=== PATIENT | female | born 1960 | race Caucasian/White ===

== ENCOUNTER → 2016-07-13 | Outpatient (CLI) | payer BC ==
--- NOTE | 2016-07-13 14:29 | MR ---
MR lumbar spine wo con PAIN IN LOWER BACK RADIATING TO HIPS Multiplanar, multiecho imaging of the lumbar spine was obtained without contrast on a 3 Sharyn magnet. REFERENCE:None. FINDINGS: There is a 1.5 x 3 cm solid appearing mass seen arising from the upper pole of the left ki dney. Paraspinal soft tissues are otherwise unremarkable. Vertebral body height and alignment are maintained. There is no evidence of spondylolysis or spondylo listhesis. There is evidence of a hemangioma in the body of S1. Cord signal is normal. The conus ends normally at the level of the mid body of L1. T11-12, there is disc space loss. There is a diffuse disc displacement. There is hypertrophic spondyl osis anteriorly. At T12-L1, there is a tiny annular rent without protrusion. There is a tiny left paracentral disc dis placement, mildly deforming the thecal sac without cord contact. The intervertebral foramina are wide ly maintained. The facets are unremarkable. At L1-2, there is minimal capsulitis in the right facet. At L2-3, there is mild hypertrophic change and capsulitis within the facets. At L3-4, there is disc space loss and disc desiccation. The intervertebral foramina are well maintain ed. There is no significant compressive discopathy. There are hypertrophic changes in the facets. At L4-5, there is mild disc space loss and disc desiccation. Intervertebral foramina are well maintai nicholas. There is hypertrophic change and capsulitis within the facets. There is no significant compressi ve discopathy. At L5-S1, no definite abnormality is seen. IMPRESSION: 1. MILD, DIFFUSE FACET ARTHROPATHY. 2. NO SIGNIFICANT COMPRESSIVE DISCOPATHY OR NEURAL COMPRESSION. 3. 3 CM MASS ARISING FROM THE UPPER POLE OF THE LEFT KIDNEY. THIS SHOULD BE FURTHER ELUCIDATED WITH C T OR MR.
== END | disposition home or self-care (01) ==
LOC: RADMRIMAIN 13:38
PROVIDERS: ATTEND Internal Medicine Hematology & Oncology
DX: M46.86 Other specified inflammatory spondylopathies, lumbar region (principal); M54.5 Low back pain
CPT/HCPCS: 72148

== ENCOUNTER → 2016-08-03 | Outpatient (CLI) | payer BC ==
--- NOTE | 2016-08-03 10:13 | MR ---
EXAMINATION TYPE: MR kidney wo/w con DATE OF EXAM: 08/03/2016 9:57 AM COMPARISON: MRI 05/21/2014, CT scan 11/22/2014 HISTORY: back pain CONTRAST: Standard multiplanar, multisequence MRI departmental protocol utilizing 18 mL intravenous MultiHance gadolinium contrast. FINDINGS: There again is enhancement within a 1.4 cm lesion involving the liver most likely related to hemangio ma. Bilateral adrenal masses are again seen with the largest on the left measuring 3.2 cm. Adrenal adenom a felt most likely. There is cortical loss involving both kidneys. No hydronephrosis. Deformity involving the left kidney appears be related to cortical loss and chronic scarring with no definite suspicious neoplasm. Appearance is stable dating back to 2013. Aorta of normal caliber. Pancreas has a normal appearance. Gallbladder is not identified. Findings pedro ggest previous cholecystectomy. Low signal seen within the spleen current and previous MRI appears to correspond to calcification on CT scan. Cardiomegaly. IMPRESSION: 1. Deformity involving the left kidney appears chronic dating back to 2013 appears to represent chron ic medical renal disease with marked cortical scarring and thinning without evidence of suspicious ma ss. 2. Stable hepatic lesion most likely related to hemangioma 3. Stable bilateral adrenal masses most likely related to adenoma
== END | disposition home or self-care (01) ==
LOC: RADMRIMAIN 09:05
PROVIDERS: ATTEND Internal Medicine Hematology & Oncology
DX: Q63.9 Congenital malformation of kidney, unspecified (principal); N18.9 Chronic kidney disease, unspecified; E27.8 Other specified disorders of adrenal gland; K76.89 Other specified diseases of liver
CPT/HCPCS: 74183; A9577

== ENCOUNTER → 2017-01-24 | Outpatient (CLI) | payer BC ==
--- NOTE | 2017-01-28 10:47 | MM ---
Reason for exam: screening (asymptomatic). Last mammogram was performed 1 year and 6 months ago. History: Patient is postmenopausal. Family history of premenopausal breast cancer in aunt at age 48. Excisional biopsy of the right breast, 2004. Excisional biopsy of the right breast, 1997. Physical Findings: A clinical breast exam by your physician is recommended on an annual basis and results should be correlated with mammographic findings. MG Screening Mammo w CAD Bilateral CC and MLO view(s) were taken. Prior study comparison: July 18, 2015, bilateral MG screening mammo w CAD. April 24, 2013, [facility] DIGITAL LEFT BREAST MAMMOGRAM w/CAD. The breast tissue is heterogeneously dense. This may lower the sensitivity of mammography. No significant changes when compared with prior studies. ASSESSMENT: Benign, BI-RAD 2 RECOMMENDATION: Routine screening mammogram of both breasts in 1 year.
== END | disposition home or self-care (01) ==
LOC: RADMAMWWP 12:37
PROVIDERS: ATTEND Internal Medicine Hematology & Oncology
DX: Z12.31 Encounter for screening mammogram for malignant neoplasm of breast (principal)

== ENCOUNTER 2019-05-13 07:16 | Day surgery (SDC) | payer BC, MEDICAID ==
[2019-05-11 13:29] VITALS: BMI 29.1
[~2019-05-13 07:16] MED LIST: LACTATED RINGERS 1,000 ML IV SCH; LIDOCAINE 1% 20 ML VIAL (10MG/ML) FOR IV START INTRADERMA PRN
[2019-05-13 07:50] VITALS: TEMP 98.8
[2019-05-13] MEDS ORDERED: LIDOCAINE 1% INJ 10MG/ML (20 ML MDV) ONE (07:56)
[2019-05-13] MEDS ORDERED: PROPOFOL 10 MG/ML 20 ML VIAL IV ONE (07:56)
--- NOTE | 2019-05-13 08:07 | P.GSHP ---
History of Present Illness H&P Date: 05/13/19 Chief Complaint: Colon cancer screening 59-year-old female known to our service. History of previous colon polyps however they are most likely hyperplastic. No first-degree relatives with colon cancer. No bowel related complaints. Here today for colonoscopy. Last colono scopy 7 years ago. Past Medical History Additional Past Medical History / Comment(s): thrombocytosis,HX OF NUMEROUS UTI'S BUT NONE FOR YRS. History of Any Multi-Drug Resistant Organisms: None Reported Past Surgical History: Cholecystectomy, Hysterectomy Additional Past Surgical History / Comment(s): KIDNEY URETERS RE-ROUTING D/T FREQUENT UTIS YRS AGO. LUMPECTOMIES OF BREAST-BENIGN, PT NOT SURE WHICH BREAST,sinus surgery Past Anesthesia/Blood Transfusion Reactions: No Reported Reaction Additional Past Anesthesia/Blood Transfusion Reaction / Comment(s): NEVER RECIEVED BLOOD PRODUCT. Smoking Status: Current every day smoker - Past Family History Father Family Medical History: No Reported History Additional Family Medical History / Comment(s): FATHER IS LIVING AND IN HIS 70'S Mother Family Medical History: Cancer Additional Family Medical History / Comment(s): MOTHER IS LIVING AND IN HER 70'S. HX OF OVARIAN CA. Medications and Allergies Home Medications Medication Instructions Recorded Confirmed Type Levothyroxine Sodium [Synthroid] 50 mcg PO QAM 01/24/14 05/13/19 History clonazePAM [KlonoPIN] 0.5 mg PO TID 01/24/14 05/13/19 History Aspirin 81 mg PO DAILY 04/07/14 05/13/19 History Ascorbic Acid [Vitamin C] 1,000 mg PO DAILY 05/11/19 05/13/19 History Cyanocobalamin [Vitamin B-12] 500 mcg PO DAILY 05/11/19 05/13/19 History Montelukast [Singulair] 10 mg PO DAILY 05/11/19 05/13/19 History Vitmain D (Unknown Dose) 1 dose PO DAILY 05/11/19 History Allergies Allergy/AdvReac Type Severity Reaction Status Date / Time latex Allergy Severe Anaphylaxis Verified 05/11/19 13:19 Penicillins AdvReac Severe Rash/Hives Verified 05/11/19 13:19 Surgical - Exam Vital Signs Temp Pulse Resp BP Pulse Ox 98.8 F 73 18 111/65 93 L 05/13/19 07:45 05/13/19 07:45 05/13/19 07:45 05/13/19 07:45 05/13/19 07:45 Physical exam: General: Well-developed, well-nourished HEENT: Normocephalic, sclerae nonicteric Abdomen: Nontender, nondistended Extremities: No edema Neuro: Alert and oriented Assessment and Plan (1) Colon cancer screening Narrative/Plan: Will proceed with colonoscopy at this time Current Visit: Yes Status: Acute Code(s): Z12.11 - ENCOUNTER FOR SCREENING FOR MALIGNANT NEOPLASM OF COLON SNOMED Code(s): 274258730
--- NOTE | 2019-05-13 08:22 | P.PCN ---
Date of Procedure: 05/13/19 Procedure(s) Performed: PREOPERATIVE DIAGNOSIS: Colon cancer screening POSTOPERATIVE DIAGNOSIS: Rectal polyp 2 PROCEDURE: Colonoscopy with snare polypectomy ANESTHESIA: MAC SURGEON: Martín Coburn M.D. SPECIMENS: Rectal polyps ENDOSCOPIC PROCEDURE: The patient was placed on the endoscopy table in the left decubitus position. The Olympus colonoscope was inserted into the anus and passed under direct visualization to the base of the cecum. The appendiceal orifice was visualized. From that point the scope was slowly withdrawn inspecting all surfaces carefully. There were no neoplastic inflammatory or polypoid lesions throughout the cecum, ascending, transverse, descending, and sigmoid colon. In the rectum proximally the 2 small polyps removed using the snare with cautery technique. The remainder of the rectum was normal. There was no visible diverticulosis. Digital rectal examination was normal. The patient was taken to the recovery room in stable condition per anesthesia guidelines. RECOMMENDATIONS: Await biopsy results. Colonoscopy 5-10 years based on pathology findings.
[2019-05-13 08:48] VITALS: BP 125/73; PULSE 60; RESP 17
== END 2019-05-13 09:16 | disposition home or self-care (01) ==
LOC: ORWHC2ENDO 07:16
PROVIDERS: ATTEND Surgery
DX: Z12.11 Encounter for screening for malignant neoplasm of colon (principal); K62.1 Rectal polyp; E07.9 Disorder of thyroid, unspecified; J41.0 Simple chronic bronchitis; D47.3 Essential (hemorrhagic) thrombocythemia; F41.9 Anxiety disorder, unspecified; F17.210 Nicotine dependence, cigarettes, uncomplicated; Z88.0 Allergy status to penicillin; Z91.040 Latex allergy status; Z79.890 Hormone replacement therapy; Z79.899 Other long term (current) drug therapy; Z90.49 Acquired absence of other specified parts of digestive tract; Z90.710 Acquired absence of both cervix and uterus; Z86.010 Personal history of colon polyps; Z87.440 Personal history of urinary (tract) infections; Z98.890 Other specified postprocedural states; Z80.41 Family history of malignant neoplasm of ovary; Z79.82 Long term (current) use of aspirin
CPT/HCPCS: 88305; 45385; J2001; J2704

== ENCOUNTER → 2019-07-21 | Outpatient (CLI) | payer MEDICAID ==
--- NOTE | 2019-07-22 11:26 | MM ---
Reason for exam: screening (asymptomatic). Last mammogram was performed 2 years and 6 months ago. History: Patient is postmenopausal. Family history of premenopausal breast cancer in aunt at age 48. Excisional biopsy of the right breast, 2004. Excisional biopsy of the right breast, 1997. Physical Findings: A clinical breast exam by your physician is recommended on an annual basis and results should be correlated with mammographic findings. MG Screening Mammo w CAD Bilateral CC and MLO view(s) were taken. Prior study comparison: January 24, 2017, bilateral MG screening mammo w CAD. July 18, 2015, bilateral MG screening mammo w CAD. The breast tissue is heterogeneously dense. This may lower the sensitivity of mammography. No suspicious abnormality. No significant changes when compared with prior studies. ASSESSMENT: Negative, BI-RAD 1 RECOMMENDATION: Routine screening mammogram of both breasts in 1 year.
== END | disposition home or self-care (01) ==
LOC: RADMAMWWP 07:29
PROVIDERS: ATTEND Internal Medicine Hematology & Oncology
DX: Z12.31 Encounter for screening mammogram for malignant neoplasm of breast (principal)
CPT/HCPCS: 77067

== ENCOUNTER → 2019-12-25 | Outpatient (CLI) | payer MEDICAID | END | disposition home or self-care (01) | LOC: LABWHC1 06:57 | PROVIDERS: ATTEND Family Medicine | DX: Z20.828 Contact with and (suspected) exposure to other viral communicable diseases (principal) ==

== ENCOUNTER → 2020-04-28 | Outpatient (CLI) | payer MEDICAID ==
--- NOTE | 2020-04-28 10:45 | CT ---
EXAMINATION TYPE: CT chest w con DATE OF EXAM: 04/28/2020 COMPARISON: CT abdomen and pelvis 11/22/2014 HISTORY: 60-year-old female cough/wheezing/smoker. TECHNIQUE: Contiguous axial scanning of the chest after the administration of 100 mL of Isovue 300. Coronal/sagittal reconstructions performed. CT DLP: 371mGycm. Automatic exposure control utilized for a dose reduction. FINDINGS: Heart normal size without pericardial effusion. Mild ectasia ascending aorta 3.6 cm. Bovine configuration to the aortic arch. Calcified 8 mm nodule within the left lobe of the thyroid gland. Scattered nonenlarged mediastinal an d right hilar lymph nodes measuring up to 8 mm. No thoracic lymphadenopathy by CT size criteria. Mild diffuse bronchial wall thickening. Mild centrilobular emphysema. No consolidation or pleural eff usion. Visualized upper abdomen shows multiple cortical defects within the kidneys and asymmetric atrophy of the left kidney. Partially visualized 6 mm nonobstructive left lower pole renal calculus. Heterogeneous arterial enhancing 1.3 cm lesion right liver lobe, axial image 66 likely represents a h emangioma, stable back to 2015. There is focal arterial enhancement peripheral left liver lobe measur ing 1.0 cm suggesting a flash filling hemangioma or vascular shunting, also stable. Nodular thickening of the bilateral adrenal glands measuring up to 2.0 x 1.4 cm on the right and 3.0 cm on the left, unchanged from 2015 suggesting underlying adrenal adenomas. Cholecystectomy clips. Bones: No osseous destructive process. IMPRESSION: 1. COPD with mild emphysema. No acute pulmonary process. 2. Stable appearance to the visualized upper abdomen as compared to 2015 with multiple renal cortical defects suggesting prior infectious or vascular insults on both sides, bilateral adrenal adenomas me asuring up to 3.0 cm, and a couple small benign hypervascular liver lesions, likely hemangiomas.
== END | disposition home or self-care (01) ==
LOC: RADCTMAIN 09:25
PROVIDERS: ATTEND Family Medicine
DX: J43.9 Emphysema, unspecified (principal); R06.2 Wheezing; Z72.0 Tobacco use
CPT/HCPCS: 71260; Q9967

== ENCOUNTER → 2020-05-09 | Outpatient (CLI) | payer MEDICAID ==
--- NOTE | 2020-05-09 07:58 | MR ---
EXAMINATION TYPE: MR iac wo/w con DATE OF EXAM: 05/09/2020 COMPARISON: None HISTORY: Disequilibrium, dizziness CONTRAST: Performed utilizing 8.5 mL intravenous Gadavist gadolinium contrast. TECHNIQUE: Multiplanar, multiecho imaging on a 3.0 Sharyn magnet is performed through the brain. Atte ntion is paid to the internal auditory canals with thin section imaging. Postcontrast imaging is per formed through the internal auditory canals. FINDINGS:Craniovertebral junction is normal. The pituitary is normal. Optic chiasm as visualized is normal Diffusion-weighted imaging is performed. No suspicious hyperintensity is present to suggest an acute intracranial infarct or acute ischemic area. Signal within the brain has a couple of areas of hyperintensity which are non-specific but could be r elated to microvascular ischemic changes. This is not out of proportion for the patient's age. Thin section imaging is performed through the internal auditory canals and cerebellar pontine angles. No cerebellar pontine angle masses are evident. The internal auditory canals appear normal without expansion or erosion. Signal within the cerebellum is unremarkable. Mastoid air cells are clear. Mid dle ears are unremarkable Postcontrast imaging was performed. No suspicious enhancement is evident within the internal audito ry canals or the included portions of the brain. IMPRESSIONS: 1. Normal internal auditory canals. 2. Couple of supratentorial nonspecific subcortical white matter changes not out of proportion to pat ient's age. This could be associated with etiologies such as microvascular ischemic change or migrain e headaches.
== END | disposition home or self-care (01) ==
LOC: RADMRIMAIN 06:05
PROVIDERS: ATTEND Otolaryngology
DX: R90.82 White matter disease, unspecified (principal); Z88.0 Allergy status to penicillin; Z91.040 Latex allergy status
CPT/HCPCS: 70553; A9585

== ENCOUNTER 2020-05-20 23:00 | Emergency (ER) | payer MEDICAID ==
[2020-05-20 23:24] LABS: Glucose,Whole Blood 105 mg/dL (75-99)
--- NOTE | 2020-05-20 23:43 | ED ---
Neuro HPI - General Chief Complaint: Neuro Symptoms/Deficit Stated Complaint: lt side tingling Time Seen by Provider: 05/20/20 23:26 Source: patient Mode of arrival: wheelchair - History of Present Illness Is the patient presenting with stroke symptoms?: Yes Last Known Well Date: 05/20/20 Last Known Well Time: 20:00 -: hour(s) Location: left arm, left leg History of same: No Place: home Severity: mild Quality: tingling Improves With: none Worsens With: none On Anticoagulants: No Context: sudden onset Associated Symptoms: denies other symptoms Treatments Prior to Arrival: none - Related Data Home Medications: Home Medications Medication Instructions Recorded Confirmed Levothyroxine Sodium [Synthroid] 50 mcg PO QAM 01/24/14 05/13/19 clonazePAM [KlonoPIN] 0.5 mg PO TID 01/24/14 05/13/19 Aspirin 81 mg PO DAILY 04/07/14 05/13/19 Ascorbic Acid [Vitamin C] 1,000 mg PO DAILY 05/11/19 05/13/19 Cyanocobalamin [Vitamin B-12] 500 mcg PO DAILY 05/11/19 05/13/19 Montelukast [Singulair] 10 mg PO DAILY 05/11/19 05/13/19 Vitmain D (Unknown Dose) 1 dose PO DAILY 05/11/19 Allergies/Adverse Reactions: Allergies Allergy/AdvReac Type Severity Reaction Status Date / Time latex Allergy Severe Anaphylaxis Verified 05/11/19 13:19 Penicillins AdvReac Severe Rash/Hives Verified 05/11/19 13:19 Review of Systems ROS Statement: Those systems with pertinent positive or pertinent negative responses have been documented in the HPI. ROS Other: All systems not noted in ROS Statement are negative. Constitutional: Denies: fever, chills Eyes: Denies: vision change Respiratory: Denies: cough, dyspnea, wheezes Cardiovascular: Denies: chest pain, palpitations, orthopnea, edema, syncope Gastrointestinal: Denies: abdominal pain, nausea, vomiting Genitourinary: Denies: dysuria, hematuria Musculoskeletal: Denies: back pain Skin: Denies: rash Neurological: Reports: paresthesias. Denies: headache, weakness, numbness General Exam General appearance: alert, in no apparent distress Head exam: Present: atraumatic, normocephalic Eye exam: Present: normal appearance. Absent: scleral icterus, conjunctival injection ENT exam: Present: normal oropharynx, mucous membranes moist Neck exam: Present: normal inspection, full ROM. Absent: meningismus Respiratory exam: Present: normal lung sounds bilaterally. Absent: respiratory distress, wheezes, rales, rhonchi, stridor Cardiovascular Exam: Present: regular rate, normal rhythm, normal heart sounds. Absent: systolic murmur, diastolic murmur, rubs, gallop GI/Abdominal exam: Present: soft. Absent: distended, tenderness, guarding, rebound, rigid, mass Extremities exam: Present: normal inspection, normal capillary refill. Absent: pedal edema, calf tenderness Back exam: Present: normal inspection. Absent: CVA tenderness (R), CVA ten derness (L) Neurological exam: Present: alert, oriented X3, CN II-XII intact. Absent: motor sensory deficit Psychiatric exam: Present: anxious Skin exam: Present: warm, dry, intact, normal color. Absent: rash Stroke MDM - Lab Data Result diagrams: 05/20/20 23:25 05/20/20 23:25 Lab Results 05/20/20 05/20/20 05/20/20 Range/Units 23:23 23:25 23:25 WBC 7.2 (3.8-10.6) k/uL RBC 4.63 (3.80-5.40) m/uL Hgb 15.4 (11.4-16.0) gm/dL Hct 45.8 (34.0-46.0) % MCV 98.9 (80.0-100.0) fL MCH 33.2 (25.0-35.0) pg MCHC 33.6 (31.0-37.0) g/dL RDW 14.2 (11.5-15.5) % Plt Count 339 (150-450) k/uL MPV 8.2 Neutrophils % 60 % Lymphocytes % 30 % Monocytes % 5 % Eosinophils % 2 % Basophils % 1 % Neutrophils # 4.3 (1.3-7.7) k/uL Lymphocytes # 2.2 (1.0-4.8) k/uL Monocytes # 0.4 (0-1.0) k/uL Eosinophils # 0.2 (0-0.7) k/uL Basophils # 0.1 (0-0.2) k/uL PT 9.5 (9.0-12.0) sec INR 0.9 (<1.2) APTT 25.6 (22.0-30.0) sec Sodium (137-145) mmol/L Potassium (3.5-5.1) mmol/L Chloride (98-107) mmol/L Carbon Dioxide (22-30) mmol/L Anion Gap mmol/L BUN (7-17) mg/dL Creatinine (0.52-1.04) mg/dL Est GFR (CKD-EPI)AfAm (>60 ml/min/1.73 sqM) Est GFR (CKD-EPI)NonAf (>60 ml/min/1.73 sqM) Glucose (74-99) mg/dL POC Glucose (mg/dL) 105 H (75-99) mg/dL POC Glu Watch [employer] Rep[employer] Clerk ID [place] Calcium (8.4-10.2) mg/dL Total Bilirubin (0.2-1.3) mg/dL AST (14-36) U/L ALT (4-34) U/L Alkaline Phosphatase (38-126) U/L Troponin I (0.000-0.034) ng/mL Total Protein (6.3-8.2) g/dL Albumin (3.5-5.0) g/dL 05/20/20 05/20/20 Range/Units 23:25 23:25 WBC (3.8-10.6) k/uL RBC (3.80-5.40) m/uL Hgb (11.4-16.0) gm/dL Hct (34.0-46.0) % MCV (80.0-100.0) fL MCH (25.0-35.0) pg MCHC (31.0-37.0) g/dL RDW (11.5-15.5) % Plt Count (150-450) k/uL MPV Neutrophils % % Lymphocytes % % Monocytes % % Eosinophils % % Basophils % % Neutrophils # (1.3-7.7) k/uL Lymphocytes # (1.0-4.8) k/uL Monocytes # (0-1.0) k/uL Eosinophils # (0-0.7) k/uL Basophils # (0-0.2) k/uL PT (9.0-12.0) sec INR (<1.2) APTT (22.0-30.0) sec Sodium 137 (137-145) mmol/L Potassium 5.4 H (3.5-5.1) mmol/L Chloride 108 H (98-107) mmol/L Carbon Dioxide 26 (22-30) mmol/L Anion Gap 3 mmol/L BUN 15 (7-17) mg/dL Creatinine 0.69 (0.52-1.04) mg/dL Est GFR (CKD-EPI)AfAm >90 (>60 ml/min/1.73 sqM) Est GFR (CKD-EPI)NonAf >90 (>60 ml/min/1.73 sqM) Glucose 99 (74-99) mg/dL POC Glucose (mg/dL) (75-99) mg/dL POC Glu Watch And Clock Repair Clerk ID Calcium 8.9 (8.4-10.2) mg/dL Total Bilirubin 0.6 (0.2-1.3) mg/dL AST 33 (14-36) U/L ALT 14 (4-34) U/L Alkaline Phosphatase 82 (38-126) U/L Troponin I <0.012 (0.000-0.034) ng/mL Total Protein 7.0 (6.3-8.2) g/dL Albumin 3.8 (3.5-5.0) g/dL - EKG Data -: EKG Interpreted by Tn EKG shows normal: sinus rhythm (Rate 88 bpm), axis (Normal), intervals (Normal), QRS complexes (Normal) Rate: normal Interpretation: nonspecific ST-T wave changes Past Medical History Additional Past Medical History / Comment(s): thrombocytosis,HX OF NUMEROUS UTI'S BUT NONE FOR YRS. History of Any Multi-Drug Resistant Organisms: None Reported Past Surgical History: Cholecystectomy, Hysterectomy Additional Past Surgical History / Comment(s): KIDNEY URETERS RE-ROUTING D/T FREQUENT UTIS YRS AGO. LUMPECTOMIES OF BREAST-BENIGN, PT NOT SURE WHICH BREAST,sinus surgery Past Anesthesia/Blood Transfusion Reactions: No Reported Reaction Additional Past Anesthesia/Blood Transfusion Reaction / Comment(s): NEVER RECIEVED BLOOD PRODUCT. Past Psychological History: Anxiety, Panic Disorder Smoking Status: Current every day smoker Past Alcohol Use History: Occasional Past Drug Use History: None Reported - Past Family History Father Family Medical History: No Reported History Additional Family Medical History / Comment(s): FATHER IS LIVING AND IN HIS 70'S Mother Family Medical History: Cancer Additional Family Medical History / Comment(s): MOTHER IS LIVING AND IN HER 70'S. HX OF OVARIAN CA. Course Vital Signs 05/20/20 05/20/20 05/20/20 23:05 23:15 23:45 Temperature 98.9 F Pulse Rate 91 82 81 Respiratory 20 18 16 Rate Blood Pressure 173/120 175/108 165/99 O2 Sat by Pulse 99 98 100 Oximetry 05/21/20 05/21/20 05/21/20 00:15 00:30 00:45 Temperature Pulse Rate 79 78 85 Respiratory 20 20 18 Rate Blood Pressure 158/98 131/80 138/88 O2 Sat by Pulse 20 L 99 98 Oximetry 05/21/20 05/21/20 05/21/20 01:15 01:45 02:15 Temperature Pulse Rate 85 78 75 Respiratory 18 16 16 Rate Blood Pressure 133/77 144/78 135/82 O2 Sat by Pulse 98 100 99 Oximetry 05/21/20 03:03 Temperature 98.1 F Pulse Rate 81 Respiratory 16 Rate Blood Pressure 132/88 O2 Sat by Pulse 98 Oximetry Disposition Clinical Impression: Paresthesia Disposition: HOME SELF-CARE Condition: Good Instructions (If sedation given, give patient instructions): Paresthesia (ED), Hypertension (ED) Is patient prescribed a controlled substance at d/c from ED?: No Referrals: Karen Coburn MD [Primary Care Provider] - 1-2 days Faith Ramos MD [REFERRING] - 1-2 days Phuong Calvo MD [STAFF PHYSICIAN] - 1-2 days
--- NOTE | 2020-05-21 00:11 | CT ---
EXAMINATION TYPE: CT brain wo con for TPA DATE OF EXAM: 05/21/2020 COMPARISON: None HISTORY: Left Side Tingling CT DLP: 1070.40 mGycm Automated exposure control for dose reduction was used. Ventricles have normal size. There is no mass effect nor midline shift. There is no sign of intracran ial hemorrhage. There is no evidence of cerebral edema. Calvarium is intact. Skull base is intact. IMPRESSION: Normal unenhanced head CT scan.
--- NOTE | 2020-05-21 00:13 | XR ---
EXAMINATION TYPE: XR chest 2V DATE OF EXAM: 05/21/2020 COMPARISON: 04/18/2017 HISTORY: Altered mental status TECHNIQUE: FINDINGS: Heart and mediastinum are normal. Lungs are clear. Diaphragm is normal. Bony thorax appears normal. There are chest leads. IMPRESSION: Normal chest. No change.
[2020-05-21 00:14] LABS: Basophils # (A) 0.1 k/uL (0-0.2); Basophils % (A) 1 %; Eosinophils # (A) 0.2 k/uL (0-0.7); Eosinophils % (A) 2 %; HCT 45.8 % (34.0-46.0); HGB 15.4 gm/dL (11.4-16.0); Lymphocytes # (A) 2.2 k/uL (1.0-4.8); Lymphocytes % (A) 30 %; MCH 33.2 pg (25.0-35.0); MCHC 33.6 g/dL (31.0-37.0); MCV 98.9 fL (80.0-100.0); Mean Platelet Volume 8.2; Monocytes # (A) 0.4 k/uL (0-1.0); Monocytes % (A) 5 %; Neutrophils # (A) 4.3 k/uL (1.3-7.7); Neutrophils % (A) 60 %; Platelet Count 339 k/uL (150-450); RBC 4.63 m/uL (3.80-5.40); RDW 14.2 % (11.5-15.5); WBC 7.2 k/uL (3.8-10.6)
[2020-05-21 00:22] LABS: INR 0.9 (<1.2); Partial Thromboplastin Time 25.6 sec (22.0-30.0); Prothrombin Time 9.5 sec (9.0-12.0)
[2020-05-21 00:35] LABS: ALT 14 U/L (4-34); African American GFR (CKD) >90 (>60 ml/min/1.73 sqM); Anion Gap 3 mmol/L; Blood Urea Nitrogen 15 mg/dL (7-17); Calcium 8.9 mg/dL (8.4-10.2); Carbon Dioxide 26 mmol/L (22-30); Chloride 108 mmol/L (98-107); Glucose 99 mg/dL (74-99); Non-African American GFR(CKD) >90 (>60 ml/min/1.73 sqM); Sodium 137 mmol/L (137-145); Total Bilirubin 0.6 mg/dL (0.2-1.3)
[2020-05-21 00:41] LABS: AST 33 U/L (14-36); Albumin 3.8 g/dL (3.5-5.0); Alkaline Phosphatase 82 U/L (38-126); Potassium 5.4 mmol/L (3.5-5.1)
[2020-05-21 03:02] VITALS: RESP 16
[2020-05-21 03:04] VITALS: BP 132/88; PULSE 81; TEMP 98.1
== END 2020-05-21 03:03 | disposition home or self-care (01) ==
LOC: EC 23:00
DX: R20.2 Paresthesia of skin (principal); F41.0 Panic disorder [episodic paroxysmal anxiety]; F17.200 Nicotine dependence, unspecified, uncomplicated; Z79.82 Long term (current) use of aspirin; Z79.899 Other long term (current) drug therapy; Z88.0 Allergy status to penicillin; Z91.040 Latex allergy status
CPT/HCPCS: 36415; 70450; 71046; 80053; 84484; 85025; 85610; 85730; 93005; 99284

== ENCOUNTER → 2020-10-28 | Outpatient (CLI) | payer OTHER ==
--- NOTE | 2020-10-28 09:31 | XR ---
EXAMINATION TYPE: XR knee limited LT DATE OF EXAM: 10/28/2020 COMPARISON: None HISTORY: Pain TECHNIQUE: 2 view left knee FINDINGS: There is some mild narrowing of the medial lateral compartment joint spaces. Medial femoral condylar and medial tibial plateau spurring is present. No joint effusion is evident. Posterior supe rior patellar spurring is present. IMPRESSION: 1. Mild osteoarthritic degenerative change left knee
== END | disposition home or self-care (01) ==
LOC: RADXRMAIN 09:09
PROVIDERS: ATTEND Family Medicine
DX: M17.12 Unilateral primary osteoarthritis, left knee (principal)

== ENCOUNTER 2022-06-14 01:27 | Observation (INO) | payer OTHER ==
[2022-06-14 01:54] LABS: Basophils # (A) 0.1 k/uL (0-0.2); Basophils % (A) 1 %; Eosinophils # (A) 0.3 k/uL (0-0.7); Eosinophils % (A) 3 %; HCT 45.4 % (34.0-46.0); HGB 15.4 gm/dL (11.4-16.0); Lymphocytes # (A) 2.2 k/uL (1.0-4.8); Lymphocytes % (A) 25 %; MCH 33.2 pg (25.0-35.0); MCHC 33.9 g/dL (31.0-37.0); Mean Platelet Volume 8.5; Monocytes # (A) 0.5 k/uL (0-1.0); Monocytes % (A) 5 %; Neutrophils # (A) 5.7 k/uL (1.3-7.7); Neutrophils % (A) 64 %; Platelet Count 285 k/uL (150-450); RBC 4.64 m/uL (3.80-5.40); RDW 13.6 % (11.5-15.5); WBC 8.9 k/uL (3.8-10.6)
[2022-06-14 02:09] LABS: Albumin 4.1 g/dL (3.5-5.0); Magnesium 2.2 mg/dL (1.6-2.3); Potassium 3.8 mmol/L (3.5-5.1); Total Bilirubin 0.3 mg/dL (0.2-1.3); Total Protein 7.1 g/dL (6.3-8.2)
--- NOTE | 2022-06-14 02:19 | XR ---
EXAMINATION TYPE: XR chest 2V DATE OF EXAM: 06/14/2022 2:08 AM COMPARISON: Chest radiographs from 05/21/2020 TECHNIQUE: XR chest 2V Frontal and lateral views of the chest. CLINICAL INDICATION:Female, 62 years old with history of Chest pain; FINDINGS: Lungs/Pleura: There is no evidence of pleural effusion, focal consolidation, or pneumothorax. Pulmonary vascularity: Unremarkable. Heart/mediastinum: Cardiomediastinal silhouette is unremarkable. Musculoskeletal: No acute osseous pathology. IMPRESSION: No acute cardiopulmonary disease/process.
[2022-06-14 02:20] LABS: INR 0.9 (<1.2); Partial Thromboplastin Time 25.1 sec (22.0-30.0); Prothrombin Time 9.6 sec (9.0-12.0)
[2022-06-14] MEDS ORDERED: NALOXONE 0.4 MG/ML 1 ML VIAL IV PRN (03:59)
--- NOTE | 2022-06-14 04:07 | ED ---
General Adult HPI - General Chief complaint: Chest Pain Stated complaint: Chest Pain Time Seen by Provider: 06/14/22 01:34 Source: patient Mode of arrival: ambulatory Limitations: no limitations - History of Present Illness Initial comments: This is a 62-year-old female with a past rectal history including essential thrombocytosis and anxiety presents emergency department for chest pain. The patient stated that this chest pain has been present over the last 2 weeks and has been consistent. The patient described this chest pain as left-sided as well as epigastric with pain at the bilateral shoulders. The patient also stated that she was seen at an urgent care last week with laboratory workup obtained however she did not hear back with results of this. The patient stated that the pain and discomfort was consistent and she did contact her primary care physician however was unable to speak to anybody there and therefore she came to the emergency department today for evaluation because she did not feel safe going to bed tonight. The patient was resting in bed comfortably and stated that the pain was consistent and was a dull ache. The patient stated that the radiation to the shoulders, bilaterally was consistent. The patient denied any nausea, vomiting as well as any fevers and chills. - Related Data Home Medications Medication Instructions Recorded Confirmed Levothyroxine Sodium [Synthroid] 50 mcg PO QAM 01/24/14 05/13/19 clonazePAM [KlonoPIN] 0.5 mg PO TID 01/24/14 05/13/19 Aspirin 81 mg PO DAILY 04/07/14 05/13/19 Ascorbic Acid [Vitamin C] 1,000 mg PO DAILY 05/11/19 05/13/19 Cyanocobalamin [Vitamin B-12] 500 mcg PO DAILY 05/11/19 05/13/19 Montelukast [Singulair] 10 mg PO DAILY 05/11/19 05/13/19 Vitmain D (Unknown Dose) 1 dose PO DAILY 05/11/19 Allergies Allergy/AdvReac Type Severity Reaction Status Date / Time latex Allergy Severe Anaphylaxis Verified 06/14/22 01:33 Penicillins AdvReac Severe Rash/Hives Verified 06/14/22 01:33 Review of Systems ROS Statement: Those systems with pertinent positive or pertinent negative responses have been documented in the HPI. ROS Other: All systems not noted in ROS Statement are negative. Past Medical History Additional Past Medical History / Comment(s): thrombocytosis,HX OF NUMEROUS UTI'S BUT NONE FOR YRS. History of Any Multi-Drug Resistant Organisms: None Reported Past Surgical History: Cholecystectomy, Hysterectomy Additional Past Surgical History / Comment(s): KIDNEY URETERS RE-ROUTING D/T FREQUENT UTIS YRS AGO. LUMPECTOMIES OF BREAST-BENIGN, PT NOT SURE WHICH BREAST,sinus surgery Past Anesthesia/Blood Transfusion Reactions: No Reported Reaction Additional Past Anesthesia/Blood Transfusion Reaction / Comment(s): NEVER RECIEVED BLOOD PRODUCT. Past Psychological History: Anxiety, Panic Disorder Smoking Status: Current every day smoker Past Alcohol Use History: Occasional Past Drug Use History: None Reported - Past Family History Father Family Medical History: No Reported History Additional Family Medical History / Comment(s): FATHER IS LIVING AND IN HIS 70'S Mother Family Medical History: Cancer Additional Family Medical History / Comment(s): MOTHER IS LIVING AND IN HER 70'S. HX OF OVARIAN CA. General Exam Limitations: no limitations General appearance: alert, in no apparent distress Head exam: Present: atraumatic, normocephalic Eye exam: Present: normal appearance, PERRL Pupils: Present: normal accommodation ENT exam: Present: normal exam, normal oropharynx, mucous membranes moist Neck exam: Present: normal inspection, full ROM Respiratory exam: Present: normal lung sounds bilaterally, other (Tenderness noted over the sternal region) Cardiovascular Exam: Present: regular rate, normal rhythm, normal heart sounds GI/Abdominal exam: Present: soft, tenderness (Minor epigastric tenderness noted), normal bowel sounds Extremities exam: Present: normal inspection, full ROM Back exam: Present: normal inspection, full ROM Neurological exam: Present: alert, oriented X3, CN II-XII intact Psychiatric exam: Present: normal affect, normal mood Skin exam: Present: warm, dry Course Vital Signs 06/14/22 01:29 Temperature 97.5 F L Pulse Rate 79 Respiratory 18 Rate Blood Pressure 151/77 O2 Sat by Pulse 98 Oximetry EKG Findings - EKG Comments: EKG Findings:: An EKG was obtained and was read by myself. EKG showed a rate of 74, P1 62, QR oriental orthodox 102 and QTC of 435. This EKG showed normal sinus rhythm with no ST segment elevation or depression noted. Medical Decision Making - Medical Decision Making Was pt. sent in by a medical professional or institution? @No Did you speak to anyone other than the patient for history? @Patient's Did you review nursing and triage notes? @Nursing and triage notes were reviewed Were old charts reviewed? @No Differential Diagnosis? @GERD, peptic ulcer disease, ACS EKG interpreted by me (3pts min.)? @As above X-rays interpreted by me (1pt min.)? @Chest x-ray was obtained and was interpreted by myself showing no acute intrathoracic process CT interpreted by me (1pt min.)? @ [none] U/S interpreted by me (1pt. min.)? @ [none] What testing was considered but not performed? (CT, X-rays, U/S, labs)? Why? @CT of the chest was considered however the patient did not have any concerning signs for PE therefore chest x-ray was sufficient at this time What meds were considered but not given? Why? @ [none] Did you discuss the management of the patient with other professionals? @No Did you reconcile home meds? @ [none] Was smoking cessation discussed for >3mins.? @ [none] Was critical care preformed (if so, how long)? @ [none] Were there social determinants of health that impacted care today? How? (Homelessness, low income, unemployed, alcoholism, drug addiction, transportation, low edu. Level, literacy, decrease access to med. care, half-way, rehab)? @None Was there de-escalation of care discussed even if they declined? (Discuss DNR or withdrawal of care, Hospice)? @No What co-morbidities impacted this encounter? (DM, HTN, Smoking, COPD, CAD, Cancer, CVA, Hep., AIDS, mental health diagnosis, sleep apnea, morbid obesity)? @None Was patient admitted / discharged? @The patient was seen and evaluated emergency department. Physical exam, the patient was resting in bed. Laboratory workup was obtained and was all within normal limits. Chest x-ray was negative. Due to the patient's continued symptoms over the last 2 weeks in the setting of chest pain although was mildly reproducible and was atypical, the patient was offered an observation stay for cardiology evaluation in the morning. The patient stated that she did not feel safe to be discharged home and did want to be placed in observation. The patient's primary care physician was covered by [facility] and Dr. Rosario was contacted at [phone] and accepted the patient for admission to ob servation. Undiagnosed new problem with uncertain prognosis? @ [none] Drug Therapy requiring intensive monitoring for toxicity (Heparin, Nitro, I nsulin, Cardizem)? @ [none] Were any procedures done? @ [none] Diagnosis/symptom? @Chest pain, rule out ACS secondary to the patient's 2 weeks of symptoms without improvement Acute, or Chronic, or Acute on Chronic? @Acute Uncomplicated (without systemic symptoms) or Complicated (systemic symptoms)? @Uncomplicated Side effects of treatment? @ [none] Exacerbation, Progression, or Severe Exacerbation] @ [no] Poses a threat to life or bodily function? @ [no] - Lab Data Result diagrams: 06/14/22 01:50 06/14/22 01:50 Lab Results 06/14/22 06/14/22 06/14/22 Range/Units 01:45 01:50 01:50 WBC (3.8-10.6) k/uL RBC (3.80-5.40) m/uL Hgb (11.4-16.0) gm/dL Hct (34.0-46.0) % MCV (80.0-100.0) fL MCH (25.0-35.0) pg MCHC (31.0-37.0) g/dL RDW (11.5-15.5) % Plt Count (150-450) k/uL MPV Neutrophils % % Lymphocytes % % Monocytes % % Eosinophils % % Basophils % % Neutrophils # (1.3-7.7) k/uL Lymphocytes # (1.0-4.8) k/uL Monocytes # (0-1.0) k/uL Eosinophils # (0-0.7) k/uL Basophils # (0-0.2) k/uL PT 9.6 (9.0-12.0) sec INR 0.9 (<1.2) APTT 25.1 (22.0-30.0) sec D-Dimer 0.25 (<0.60) mg/L FEU Sodium (137-145) mmol/L Potassium (3.5-5.1) mmol/L Chloride (98-107) mmol/L Carbon Dioxide (22-30) mmol/L Anion Gap mmol/L BUN (7-17) mg/dL Creatinine (0.52-1.04) mg/dL Est GFR (CKD-EPI)AfAm (>60 ml/min/1.73 sqM) Est GFR (CKD-EPI)NonAf (>60 ml/min/1.73 sqM) Glucose (74-99) mg/dL Calcium (8.4-10.2) mg/dL Magnesium (1.6-2.3) mg/dL Total Bilirubin (0.2-1.3) mg/dL AST (14-36) U/L ALT (4-34) U/L Alkaline Phosphatase (38-126) U/L Troponin I <0.012 (0.000-0.034) ng/mL NT-Pro-B Natriuret Pep 59 pg/mL Total Protein (6.3-8.2) g/dL Albumin (3.5-5.0) g/dL 06/14/22 06/14/22 Range/Units 01:50 01:50 WBC 8.9 (3.8-10.6) k/uL RBC 4.64 (3.80-5.40) m/uL Hgb 15.4 (11.4-16.0) gm/dL Hct 45.4 (34.0-46.0) % MCV 98.0 (80.0-100.0) fL MCH 33.2 (25.0-35.0) pg MCHC 33.9 (31.0-37.0) g/dL RDW 13.6 (11.5-15.5) % Plt Count 285 (150-450) k/uL MPV 8.5 Neutrophils % 64 % Lymphocytes % 25 % Monocytes % 5 % Eosinophils % 3 % Basophils % 1 % Neutrophils # 5.7 (1.3-7.7) k/uL Lymphocytes # 2.2 (1.0-4.8) k/uL Monocytes # 0.5 (0-1.0) k/uL Eosinophils # 0.3 (0-0.7) k/uL Basophils # 0.1 (0-0.2) k/uL PT (9.0-12.0) sec INR (<1.2) APTT (22.0-30.0) sec D-Dimer (<0.60) mg/L FEU Sodium 141 (137-145) mmol/L Potassium 3.8 (3.5-5.1) mmol/L Chloride 106 (98-107) mmol/L Carbon Dioxide 29 (22-30) mmol/L Anion Gap 6 mmol/L BUN 21 H (7-17) mg/dL Creatinine 0.94 (0.52-1.04) mg/dL Est GFR (CKD-EPI)AfAm 74 (>60 ml/min/1.73 sqM) Est GFR (CKD-EPI)NonAf 64 (>60 ml/min/1.73 sqM) Glucose 107 H (74-99) mg/dL Calcium 9.0 (8.4-10.2) mg/dL Magnesium 2.2 (1.6-2.3) mg/dL Total Bilirubin 0.3 (0.2-1.3) mg/dL AST 17 (14-36) U/L ALT 14 (4-34) U/L Alkaline Phosphatase 94 (38-126) U/L Troponin I (0.000-0.034) ng/mL NT-Pro-B Natriuret Pep pg/mL Total Protein 7.1 (6.3-8.2) g/dL Albumin 4.1 (3.5-5.0) g/dL Disposition Clinical Impression: Chest pain Disposition: ADMITTED IP TO THIS [facility] Condition: Stable Is patient prescribed a controlled substance at d/c from ED?: No Referrals: Karen Coburn MD [Primary Care Provider] - 1-2 days Time of Disposition: 03:30 Decision to Admit Reason: Admit from EC Decision Date: 06/14/22 Decision Time: 03:30
[2022-06-14] MEDS ORDERED: ASPIRIN 81 MG PO STA (04:33)
[2022-06-14] MEDS ORDERED: ATORVASTATIN 80 MG TAB PO SCH (04:33)
[2022-06-14] MEDS ORDERED: PANTOPRAZOLE 40 MG TABLET PO STA (04:34)
--- NOTE | 2022-06-14 04:35 | P.HPIM ---
History of Present Illness H&P Date: 06/14/22 The patient is a 62-year-old female with a PMH of hypothyroidism and tobacco abuse who presents to the emergency room with complaints of chest discomfort, GERD, and dizziness. The patient reports that her symptoms started a few weeks ago for which she was initially seen at an urgent care center this past Saturday on 06/08. She underwent an evaluation with chest x-ray, EKG, and laboratory evaluation which she was told was all unremarkable. The patient reports that she however continued having epigastric abdominal discomfort, 4-5 out of 10, substernal, radiating to both shoulders, with no alleviating or exacerbating features, nonexertional, with associated nausea, with a single episode of vomi ting. She reports that her pain then moved to the epigastric region and she now continues to have persistent GERD symptoms. Earlier today while she was at work, she also became lightheaded and diaphoretic, which prompted her to seek out further medical attention. She reports feeling at her baseline at the time of interview. She reports smoking 1 pack of cigarettes daily for the past several decades. She denied history of PUD or gastritis. Chest x-ray in the emergency room was unremarkable with EKG showing normal sinus rhythm at [address]-T wave changes noted as reviewed by me. Laboratory evaluation revealed a troponin less than 0.012 with d-dimer 0.25. Review of systems: Pertinent positives and negatives as discussed in HPI, a complete review of systems was performed and all other systems are negative. Physical examination: General: rnon toxic, no distress, appears at stated age, obese Derm: no unusual rashes/lesions, warm Head: atraumatic, normocephalic, symmetric Eyes: EOMI, no lid lag, anicteric sclera, pupils equal round reactive to light ENT: Nose and ears atraumatic Neck: No cervical lymphadenopathy, trachea midline, supple Mouth: no lip lesion, mucus membranes moist Cardiovascular: S1S2 reg, no murmur, positive dorsalis pedis pulse bilateral, no edema Lungs: CTA bilateral, no rhonchi, no rales, no accessory muscle use Abdominal: soft, nontender to palpation, no guarding Ext: muscle strength 5 out of 5 in all 4 extremities grossly, no gross muscle atrophy, no contractures, Neuro: CN II-XI grossly intact, no gross focal neuro deficits Psych: Alert, oriented, appropriate affect Assessment/plan Chest pain, rule out ACS -Cardiology consult -Trend troponin -Cardiac monitoring -Continue with aspirin, statin Abdominal pain, suspect PUD/gastritis -Protonix by mouth DVT prophylaxis -Heparin subcu The patient is admitted with an anticipated les than 2 midnight stay for evaluation of chest pain CODE STATUS: Full Code Discussed with: Patient Anticipated discharge date: in am Anticipated discharge place: Home Past Medical History Additional Past Medical History / Comment(s): thrombocytosis,HX OF NUMEROUS UTI'S BUT NONE FOR YRS. History of Any Multi-Drug Resistant Organisms: None Reported Past Surgical History: Cholecystectomy, Hysterectomy Additional Past Surgical History / Comment(s): KIDNEY URETERS RE-ROUTING D/T FREQUENT UTIS YRS AGO. LUMPECTOMIES OF BREAST-BENIGN, PT NOT SURE WHICH BREAST,sinus surgery Past Anesthesia/Blood Transfusion Reactions: No Reported Reaction Additional Past Anesthesia/Blood Transfusion Reaction / Comment(s): NEVER RECIEVED BLOOD PRODUCT. Past Psychological History: Anxiety, Panic Disorder Smoking Status: Current every day smoker Past Alcohol Use History: Occasional Past Drug Use History: None Reported - Past Family History Father Family Medical History: No Reported History Additional Family Medical History / Comment(s): FATHER IS LIVING AND IN HIS 70'S Mother Family Medical History: Cancer Additional Family Medical History / Comment(s): MOTHER IS LIVING AND IN HER 70'S. HX OF OVARIAN CA. Medications and Allergies Home Medications Medication Instructions Recorded Confirmed Type Levothyroxine Sodium [Synthroid] 50 mcg PO QAM 01/24/14 05/13/19 History clonazePAM [KlonoPIN] 0.5 mg PO TID 01/24/14 05/13/19 History Aspirin 81 mg PO DAILY 04/07/14 05/13/19 History Ascorbic Acid [Vitamin C] 1,000 mg PO DAILY 05/11/19 05/13/19 History Cyanocobalamin [Vitamin B-12] 500 mcg PO DAILY 05/11/19 05/13/19 History Montelukast [Singulair] 10 mg PO DAILY 05/11/19 05/13/19 History Vitmain D (Unknown Dose) 1 dose PO DAILY 05/11/19 History Allergies Allergy/AdvReac Type Severity Reaction Status Date / Time latex Allergy Severe Anaphylaxis Verified 06/14/22 01:33 Penicillins AdvReac Severe Rash/Hives Verified 06/14/22 01:33 Physical Exam Vitals: Vital Signs Temp Pulse Resp BP Pulse Ox 06/14/22 01:29 97.5 F L 79 18 151/77 98 Intake and Output 06/13/22 06/13/22 06/14/22 14:59 22:59 06:59 Other: Weight 81.647 kg Results CBC & Chem 7: 06/14/22 01:50 06/14/22 01:50 Labs: Abnormal Lab Results - Last 24 Hours (Table) 06/14/22 Range/Units 01:50 BUN 21 H (7-17) mg/dL Glucose 107 H (74-99) mg/dL
[2022-06-14] MEDS ORDERED: HEPARIN SODIUM,PORCINE/PF 5,000 UNIT/0.5 ML SYRINGE SQ SCH (08:00)
[2022-06-14 08:43] VITALS: BP 102/58; PULSE 63; RESP 16; TEMP 98
--- NOTE | 2022-06-14 08:57 | P.CRDCN ---
History of Present Illness Consult date: 06/14/22 Consult reason: chest pain History of present illness: History of present illness: This is a 62-year-old female with no previous cardiac history, past medical history of hypothyroidism. Patient complains of chest pain and went to the urgent center on Saturday, underwent EKG, chest x-ray and blood work which she reports was normal. Yesterday she developed the chest pain with lightheadedness and felt that she had indigestion. Pain and felt that radiated into her chest. She was not sure if it was related to food but it did radiate to her back as well. She feels like her chest is bruised. EKG is sinus rhythm with no acute ST changes Chest x-ray no acute findings CBC normal limits, d-dimer 0.25, BUN 21 creatinine 0.94 potassium 3.8. Troponin negative 2. Liver function tests are normal. Review Of Systems: At the time of my evaluation Constitutional: No fever, no chills. No weakness, fatigue or lethargy. EENT: No headache. No dizziness. Lungs: No shortness of breath, cough, no sputum production. No wheezing. Cardiovascular: No chest pain, no lower extremity edema. No palpitations. No paroxysmal nocturnal dyspnea. No orthopnea. No lightheadedness or dizziness. No syncopal episodes. Abdominal: No abdominal pain. No nausea, vomiting. No diarrhea. No constipation. No bloody or tarry stools.. No loss of appetite. Genitourinary: No dysuria.. No urinary retention. Musculoskeletal: No myalgias. No muscle weakness, no gait dysfunction, no frequent falls. No back pain. No neck pain. Integumentary: No wounds. No rash or pruritus. No unusual bruising. Neurologic: No aphasia. No facial droop. No change in mentation. No head injury. No headache. No paralysis. No paresthesia. Psychiatric: No depression. No anxiety. Endocrine: No abnormal blood sugars. Physical examination: Gen: This is a 62-year-old female. She is resting in bed and appears to be comfortable and in no acute distress VS: reviewed HEENT: Head is atraumatic, normocephalic. Pupils equal, round. Sclerae is anicteric. NECK: Supple. No JVD. LUNGS: Clear to auscultation. No wheezes or rhonchi. No intercostal retractions . HEART: Regular rate and rhythm. No murmur. ABDOMEN: Soft. No masses. No tenderness. EXTREMITIES: No pedal edema. No calf tenderness. NEUROLOGICAL: Patient is awake, alert and oriented x3. Assessment: Epigastric pain and chest pain, acute coronary syndrome ruled out Hypothyroidism Plan: Obtain exercise stress test Obtain 2-D echocardiogram and Doppler study to assess cardiac structure and function If above testing is within normal limits, patient is cleared for discharge home later today. Thank you kindly for this consultation. Nurse practitioner note has been reviewed, I agree with documented findings and plan of care. Patient was seen and examined. 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 History of Any Multi-Drug Resistant Organisms: None Reported Past Surgical History: Cholecystectomy, Hysterectomy Additional Past Surgical History / Comment(s): KIDNEY URETERS RE-ROUTING D/T FREQUENT UTIS YRS AGO. LUMPECTOMIES OF BREAST-BENIGN, PT NOT SURE WHICH BREAST, sinus surgery Past Anesthesia/Blood Transfusion Reactions: No Reported Reaction Additional Past Anesthesia/Blood Transfusion Reaction / Comment(s): NEVER REC IEVED BLOOD PRODUCT. Past Psychological History: Anxiety, Panic Disorder Additional Psychological History / Comment(s): SHE FEELS SHE IS WELL MANAGED. PT LIVE WITH AND IS INDEPENDENT. Smoking Status: Current every day smoker Past Alcohol Use History: Occasional Additional Past Alcohol Use History / Comment(s): PT STATES SHE WILL HAVE AN OCCASIONAL GLASS OF WINE OR BEER.started smoking at age 18, 0.5-1ppd Past Drug Use History: None Reported - Past Family History Father Family Medical History: No Reported History Additional Family Medical History / Comment(s): FATHER IS LIVING AND IN HIS 70'S Mother Family Medical History: Cancer Additional Family Medical History / Comment(s): MOTHER IS LIVING AND IN HER 70'S. HX OF OVARIAN CA. Medications and Allergies Home Medications Medication Instructions Recorded Confirmed Type Montelukast [Singulair] 10 mg PO DAILY 05/11/19 06/14/22 History Levothyroxine Sodium [Synthroid] 50 mcg PO DAILY 06/14/22 06/14/22 History clonazePAM [KlonoPIN] 1 mg PO BID PRN 06/14/22 06/14/22 History Allergies Allergy/AdvReac Type Severity Reaction Status Date / Time latex Allergy Severe Anaphylaxis Verified 06/14/22 08:44 Penicillins AdvReac Severe Rash/Hives Verified 06/14/22 08:44 Physical Exam Vitals: Vital Signs Temp Pulse Pulse Resp BP BP Pulse Ox 06/14/22 04:49 62 17 06/14/22 04:33 97.6 F 62 17 128/77 94 L 06/14/22 01:29 97.5 F L 79 18 151/77 98 Intake and Output 06/13/22 06/14/22 06/14/22 22:59 06:59 14:59 Other: Voiding Method Toilet # Voids 1 Weight 81.647 kg Results 06/14/22 01:50 06/14/22 01:50 Cardiac Enzymes 06/14/22 06/14/22 Range/Units 01:50 01:50 AST 17 (14-36) U/L Troponin I <0.012 (0.000-0.034) ng/mL Coagulation 06/14/22 Range/Units 01:45 PT 9.6 (9.0-12.0) sec APTT 25.1 (22.0-30.0) sec CBC 06/14/22 Range/Units 01:50 WBC 8.9 (3.8-10.6) k/uL RBC 4.64 (3.80-5.40) m/uL Hgb 15.4 (11.4-16.0) gm/dL Hct 45.4 (34.0-46.0) % Plt Count 285 (150-450) k/uL Comprehensive Metabolic Panel 06/14/22 Range/Units 01:50 Sodium 141 (137-145) mmol/L Potassium 3.8 (3.5-5.1) mmol/L Chloride 106 (98-107) mmol/L Carbon Dioxide 29 (22-30) mmol/L BUN 21 H (7-17) mg/dL Creatinine 0.94 (0.52-1.04) mg/dL Glucose 107 H (74-99) mg/dL Calcium 9.0 (8.4-10.2) mg/dL AST 17 (14-36) U/L ALT 14 (4-34) U/L Alkaline Phosphatase 94 (38-126) U/L Total Protein 7.1 (6.3-8.2) g/dL Albumin 4.1 (3.5-5.0) g/dL Current Medications Generic Name Dose Route Start Last Admin Trade Name Freq PRN Reason Stop Dose Admin Atorvastatin Calcium 80 mg 06/14/22 04:33 06/14/22 04:46 Atorvastatin 80 Mg Tab PO 80 mg HS FRED Administration Heparin Sodium (Porcine) 5,000 unit 06/14/22 08:00 Heparin Sodium,Porcine/Pf 5,000 Unit/0.5 Ml Syringe SQ Q8HR FRED Naloxone HCl 0.2 mg 06/14/22 03:59 Naloxone 0.4 Mg/Ml 1 Ml Vial IV Q2M PRN Opioid Reversal Intake and Output 06/13/22 06/14/22 06/14/22 22:59 06:59 14:59 Other: Voiding Method Toilet # Voids 1 Weight 81.647 kg 06/14/22 01:50 06/14/22 01:50
--- NOTE | 2022-06-14 12:09 | CA ---
Transthoracic Echo Report Name: Carmen Wood Age: 62 Gender: F : 1960 Exam Date: 06/14/2022 09:11 Exam Location: [facility] Ht (in): 64 Wt (lb): 180 Ordering Physician: Lilli Rosario MD Attending/Referring Phys: Repairer Shoe Sticks Jenifer Serrato RDCS Procedure CPT: Indications: Chest Pain Cardiac Hx: Technical Quality: Fair Contrast 1: Total Dose (mL): Contrast 2: Total Dose (mL): MEASUREMENTS (Male / Female) Normal Values 2D ECHO LV Diastolic Diameter PLAX 4.1 cm 4.2 - 5.9 / 3.9 - 5.3 cm LV Systolic Diameter PLAX 2.6 cm IVS Diastolic Thickness 1.6 cm 0.6 - 1.0 / 0.6 - 0.9 cm LVPW Diastolic Thickness 1.2 cm 0.6 - 1.0 / 0.6 - 0.9 cm LV Relative Wall Thickness 0.7 RV Internal Dim ED PLAX 2.6 cm LA Volume 45.4 cm??? 18 - 58 / 22 - 52 cm??? M-MODE Aortic Root Diameter MM 3.0 cm LA Systolic Diameter MM 2.9 cm LA Ao Ratio MM 1.0 AV Cusp Separation MM 1.9 cm DOPPLER AV Peak Velocity 141.1 cm/s AV Peak Gradient 8.0 mmHg AV Mean Velocity 108.1 cm/s AV Mean Gradient 5.0 mmHg AV Velocity Time Integral 31.7 cm LVOT Peak Velocity 117.5 cm/s LVOT Peak Gradient 5.5 mmHg MV Area PHT 3.2 cm??? Mitral E Point Velocity 54.2 cm/s Mitral A Point Velocity 77.8 cm/s Mitral E to A Ratio 0.7 MV Deceleration Time 234.2 ms MV E' Velocity 6.9 cm/s Mitral E to MV E' Ratio 7.9 TR Peak Velocity 189.8 cm/s TR Peak Gradient 14.4 mmHg Right Ventricular Systolic Press 19.4 mmHg FINDINGS Left Ventricle Mildly increased left ventricular wall thickness. Normal left ventricular systolic function with no obvious regional wall motion abnormalities. Left ventricular ejection fraction is estimated at 55 %. Right Ventricle Normal right ventricular size and function. Right ventricular systolic pressure within normal limits. Right Atrium Normal right atrial size. Left Atrium Normal left atrial size. Mitral Valve Structurally normal mitral valve. Trace to mild mitral regurgitation. Aortic Valve Trileaflet aortic valve. No aortic valve stenosis or regurgitation. Tricuspid Valve Structurally normal tricuspid valve. Mild tricuspid regurgitation. Pulmonic Valve Trace pulmonic regurgitation. Pericardium No pericardial effusion. Aorta Normal size aortic root and proximal ascending aorta. CONCLUSIONS Normal left ventricular dimension and systolic function No significant valvular abnormalities Previewed by: Dr. Adelfo Ferrari MD (Electronically Signed) Final Date: 14 June 2022 12:09
--- NOTE | 2022-06-14 12:20 | CA ---
Exercise Stress Test Report Name: Carmen Wood Exam Date: 06/14/2022 09:42 Exam Location: [place] Stress Ht (in): Wt (lb): BSA: Ordering Phys: Renee Dillon NPC Referring Phys: SYLVESTER,, Technologist: Rita Sanchez RDCS Age: 62 Gender: F : 1960 Procedure CPT: Indications: CP ICD-10 Codes: Patient History: Medications: Meds past 24 hrs: Pretest Chest Pain: STRESS TEST Jose Maria Protocol Exercise Duration (min:sec): 06:[address] Depressions (mm): Angina Score: Leonardo Score: Resting HR (bpm): 81 Peak HR (bpm): 160 Resting BP (mmHg): 141 / 85 Peak BP (mmHg): 190 / 97 MPHR: 156 Target HR: 133 % MPHR: 103 METS: 8.3 Total Dose: Peak Dose: Atropine: Double Product: 87051 BP Response: Stress Termination: Stress Symptoms: Stress Summary: ECG ANALYSIS Resting ECG: Stress ECG: CONCLUSIONS Good exercise tolerance Normal EKG in response to exercise Dr. Adelfo Ferrari MD (Electronically Signed) Final Date: 14 June 2022 12:19
--- NOTE | 2022-06-14 12:55 | P.DS ---
Providers Date of admission: 06/14/22 04:00 Expected date of discharge: 06/14/22 Attending physician: Lilli Rosario MD Consults: 06/14/22 03:59 Consult Physician Routine Consulting Provider: [facility] Consult Reason/Comments: Chest pain, r/o ACS Do you want consulting provider notified?: Yes, Notify in am Primary care physician: Karen Coburn [facility] Course: Discharge Diagnosis: Chest pain Epigastric pain, possible GERD History of hypothyroidism Nicotine dependence Hospital Course: 62-year-old female with a PMH of hypothyroidism and tobacco abuse who presents to the emergency room with complaints of chest discomfort, GERD, and dizziness. The patient reports that her symptoms started a few weeks ago for which she was initially seen at an urgent care center this past Saturday on 06/08. She underwent an evaluation with chest x-ray, EKG, and laboratory evaluation which she was told was all unremarkable. The patient reported that she however cont inued having epigastric abdominal discomfort, 4-5 out of 10, substernal, radiating to both shoulders, with no alleviating or exacerbating features, nonexertional, with associated nausea, with a single episode of vomiting. She reports that her pain then moved to the epigastric region and she now continues to have persistent GERD symptoms. Earlier during the day while she was at work, she also became lightheaded and diaphoretic, which prompted her to seek out further medical attention She reports smoking 1 pack of cigarettes daily for the past several decades. She denied history of PUD or gastritis. Chest x-ray in the emergency room was unremarkable with EKG showing normal sinus rhythm at [address]-T wave changes. Laboratory evaluation revealed a troponin less than 0.012 with d-dimer 0.25. Cardiology consulted. Echocardiogram showed normal systolic and diastolic function, with LVEF 55%. Stress EKG test was normal. Patient likely has GERD will need further outpatient follow-up. Patient seen and examined at bedside. Vital signs reviewed and stable. General: nontoxic, no distress, appears at stated age Derm: warm, dry Head: atraumatic, normocephalic, symmetric Eyes: EOMI, no lid lag, anicteric sclera Mouth: no lip lesion, mucus membranes moist Cardiovascular: S1S2 reg, no murmur Lungs: CTA bilateral, no rhonchi, no rales , no accessory muscle use Abdominal: soft, nontender to palpation, no guarding, no appreciable organomegaly Ext: no gross muscle atrophy, no edema, no contractures Neuro: CN II-XI grossly intact, no focal neuro deficits Psych: Alert, oriented, appropriate affect A total of 35 minutes of time were spent preparing this complex discharge summary. Patient was discharged on 06/14/22 at 12:37. Patient Condition at Discharge: Stable Plan - Discharge Summary New Discharge Prescriptions: New Pantoprazole [Protonix] 40 mg PO DAILY #30 tab Continue Montelukast [Singulair] 10 mg PO DAILY clonazePAM [KlonoPIN] 1 mg PO BID PRN PRN Reason: Anxiety Levothyroxine Sodium [Synthroid] 50 mcg PO DAILY Discharge Medication List Montelukast [Singulair] 10 mg PO DAILY 05/11/19 [History] Levothyroxine Sodium [Synthroid] 50 mcg PO DAILY 06/14/22 [History] Pantoprazole [Protonix] 40 mg PO DAILY #30 tab 06/14/22 [Rx] clonazePAM [KlonoPIN] 1 mg PO BID PRN 06/14/22 [History] Follow up Appointment(s)/Referral(s): Karen Coburn MD [Primary Care Provider] - 1-2 days Patient Instructions/Handouts: Chest Pain (DC), Noncardiac Chest Pain (DC) Discharge Disposition: HOME SELF-CARE
== END 2022-06-14 14:03 | disposition home or self-care (01) ==
LOC: EC 01:27 → 6NMEDSUR 04:00
PROVIDERS: ADMIT Internal Medicine; ATTEND Internal Medicine
DX: R07.89 Other chest pain (principal); R10.13 Epigastric pain; E03.9 Hypothyroidism, unspecified; K21.9 Gastro-esophageal reflux disease without esophagitis; D75.839 Thrombocytosis, unspecified; F41.0 Panic disorder [episodic paroxysmal anxiety]; F10.20 Alcohol dependence, uncomplicated; F17.210 Nicotine dependence, cigarettes, uncomplicated; I08.1 Rheumatic disorders of both mitral and tricuspid valves; I37.1 Nonrheumatic pulmonary valve insufficiency; Z79.890 Hormone replacement therapy; Z79.82 Long term (current) use of aspirin; Z79.899 Other long term (current) drug therapy; Z91.040 Latex allergy status; Z90.49 Acquired absence of other specified parts of digestive tract; Z90.710 Acquired absence of both cervix and uterus; Z80.41 Family history of malignant neoplasm of ovary; Z87.440 Personal history of urinary (tract) infections
CPT/HCPCS: 99285; 36415; 93005; 93017; 93306; 85379; 83880; 80053; 83735; 84484; 85025; 85610; 85730; 71046; G0378

== ENCOUNTER 2022-09-18 02:41 | Inpatient (IN) | payer OTHER ==
[2022-09-18] MEDS ORDERED: SODIUM CHLORIDE 0.9% 1,000 ML IV STA (03:03)
[2022-09-18 03:39] LABS: Basophils % (A) 0 %; Eosinophils # (A) 0.2 k/uL (0-0.7); Eosinophils % (A) 2 %; HCT 48.8 % (34.0-46.0); HGB 15.8 gm/dL (11.4-16.0); Lymphocytes # (A) 1.3 k/uL (1.0-4.8); Lymphocytes % (A) 17 %; MCHC 32.3 g/dL (31.0-37.0); Mean Platelet Volume 8.3; Monocytes # (A) 0.4 k/uL (0-1.0); Monocytes % (A) 5 %; Neutrophils # (A) 5.8 k/uL (1.3-7.7); Neutrophils % (A) 74 %; Platelet Count 326 k/uL (150-450); RBC 4.93 m/uL (3.80-5.40); RDW 13.5 % (11.5-15.5); WBC 7.8 k/uL (3.8-10.6)
[2022-09-18 03:41] LABS: INR 0.9 (<1.2); Partial Thromboplastin Time 24.5 sec (22.0-30.0); Prothrombin Time 9.8 sec (9.0-12.0)
[2022-09-18 03:44] LABS: ALT 15 U/L (4-34); AST 16 U/L (14-36); African American GFR (CKD) >90 (>60 ml/min/1.73 sqM); Albumin 3.7 g/dL (3.5-5.0); Alkaline Phosphatase 87 U/L (38-126); Anion Gap 6 mmol/L; Blood Urea Nitrogen 14 mg/dL (7-17); Calcium 8.7 mg/dL (8.4-10.2); Carbon Dioxide 25 mmol/L (22-30); Chloride 106 mmol/L (98-107); Glucose 101 mg/dL (74-99); Magnesium 2.2 mg/dL (1.6-2.3); Non-African American GFR(CKD) 84 (>60 ml/min/1.73 sqM); Potassium 4.1 mmol/L (3.5-5.1); Sodium 137 mmol/L (137-145); Total Bilirubin 0.5 mg/dL (0.2-1.3); Total Protein 6.5 g/dL (6.3-8.2)
--- NOTE | 2022-09-18 03:45 | ED ---
General Adult HPI - General Chief complaint: Dizziness Stated complaint: Anxiety Time Seen by Provider: 09/18/22 02:45 Source: patient, RN notes reviewed, old records reviewed Mode of arrival: ambulatory Limitations: no limitations - History of Present Illness Initial comments: 62-year-old female presenting for evaluation of lightheadedness. Patient also voices suicidal thoughts. She's had multiple medication changes over the past several months including the addition of several antidepressants. Despite this she's had increasing thoughts of suicide. She is currently on Klonopin which has been stable medication for many years. She's tried multiple antidepressants without improvement. Denies chest pain. Denies abdominal pain. - Related Data Home Medications Medication Instructions Recorded Confirmed Levothyroxine Sodium [Synthroid] 50 mcg PO DAILY 06/14/22 08/08/22 clonazePAM [KlonoPIN] 1 mg PO HS 06/14/22 08/08/22 Aspirin 81 mg PO DAILY 08/08/22 08/08/22 Cholecalciferol [Vitamin D3 (25 25 mcg PO DAILY 08/08/22 08/08/22 Mcg = 1000 Iu)] clonazePAM [KlonoPIN] 0.5 mg PO BID 08/08/22 08/08/22 Magnesium Malate 500 mg PO HS 08/10/22 08/10/22 Allergies Allergy/AdvReac Type Severity Reaction Status Date / Time latex Allergy Severe Anaphylaxis Verified 09/18/22 02:43 Penicillins AdvReac Severe Rash/Hives Verified 09/18/22 02:43 prednisone AdvReac MAKES HER Verified 09/18/22 02:43 FEEL LIGHTHEADED Review of Systems ROS Statement: Those systems with pertinent positive or pertinent negative responses have been documented in the HPI. ROS Other: All systems not noted in ROS Statement are negative. 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 History of Any Multi-Drug Resistant Organisms: None Reported Past Surgical History: Breast Surgery, Cholecystectomy, Hysterectomy Additional Past Surgical History / Comment(s): KIDNEY URETERS RE-ROUTING D/T FREQUENT UTIS YRS AGO. LUMPECTOMIES OF BREAST-BENIGN, sinus surgery Past Anesthesia/Blood Transfusion Reactions: No Reported Reaction Additional Past Anesthesia/Blood Transfusion Reaction / Comment(s): NEVER RECIEVED BLOOD PRODUCT. Past Psychological History: Anxiety, Panic Disorder Smoking Status: Current every day smoker Past Alcohol Use History: Occasional Past Drug Use History: None Reported - Past Family History Father Family Medical History: No Reported History Additional Family Medical History / Comment(s): FATHER IS LIVING AND IN HIS 70'S Mother Family Medical History: Cancer Additional Family Medical History / Comment(s): HX OF OVARIAN CA. Brother(s) Family Medical History: Cancer Additional Family Medical History / Comment(s): ESOPHAGUS CANCER General Exam Limitations: no limitations General appearance: alert, anxious Head exam: Present: atraumatic, normocephalic Eye exam: Present: normal appearance, PERRL ENT exam: Present: normal exam Neck exam: Present: normal inspection, tenderness Respiratory exam: Present: normal lung sounds bilaterally. Absent: respiratory distress, wheezes Cardiovascular Exam: Present: regular rate, normal rhythm GI/Abdominal exam: Present: soft. Absent: distended, tenderness, guarding Extremities exam: Present: normal inspection Neurological exam: Present: alert, oriented X3, CN II-XII intact, other (No ataxia). Absent: motor sensory deficit Psychiatric exam: Present: anxious, suicidal ideation Skin exam: Present: warm, dry, intact. Absent: cyanosis, diaphoretic Course Vital Signs 09/18/22 02:43 Temperature 98.2 F Pulse Rate 85 Respiratory 18 Rate Blood Pressure 144/79 O2 Sat by Pulse 98 Oximetry - Reevaluation(s) Reevaluation #1: 09/18/22 04:16 Medically cleared for EPS EKG Findings - EKG Comments: EKG Findings:: EKG: Sinus rhythm rate of 71, NC interval 151, QRS duration 103, QTC [address] segment elevation - EKG Results: EKG: interpreted by ERMD Medical Decision Making - Medical Decision Making Was pt. sent in by a medical professional or institution (, PA, [facility], urgent care, hospital, or fpc...) When possible be specific @ -[No] Did you speak to anyone other than the patient for history (EMS, parent, family, police, friend...)? What history was obtained from this source @ -[No] Did you review nursing and triage notes (agree or disagree)? Why? @ -[I reviewed and agree with nursing and triage notes] Were old charts reviewed (outside hosp., previous admission, EMS record, old EKG, old radiological studies, urgent care reports/EKG's, fpc records)? Report findings @ -[No old charts were reviewed] Differential Diagnosis (chest pain, altered mental status, abdominal pain women, abdominal pain men, vaginal bleeding, weakness, fever, dyspnea, syncope, headache, dizziness, GI bleed, back pain, seizure, CVA, palpatations, mental health, musculoskeletal)? @ -Depression, anxiety, suicidal thoughts EKG interpreted by me (3pts min.). @ -[As above] X-rays interpreted by me (1pt min.). @ -[None done] CT interpreted by me (1pt min.). @ -[None done] U/S interpreted by me (1pt. min.). @ -[None done] What testing was considered but not performed or refused? (CT, X-rays, U/S, labs)? Why? @ -[None] What meds were considered but not given or refused? Why? @ -[None] Did you discuss the management of the patient with other professionals (professionals i.e. , PA, [facility], lab, RT, psych nurse, healthcare social worker, health aide, teacher, court officer, caseworker intake)? Give summary @ -[No] Was smoking cessation discussed for >3mins.? @ -[No] Was critical care preformed (if so, how long)? @ -[No] Were there social determinants of health that impacted care today? How? (Homelessness, low income, unemployed, alcoholism, drug addiction, transportation, low edu. Level, literacy, decrease access to med. care, care home, rehab)? @ -[No] Was there de-escalation of care discussed even if they declined (Discuss DNR or withdrawal of care, Hospice)? DNR status @ -[No] What co-morbidities impacted this encounter? (DM, HTN, Smoking, COPD, CAD, Cancer, CVA, ARF, Chemo, Hep., AIDS, mental health diagnosis, sleep apnea, morbid obesity)? @ -[None] Was patient admitted / discharged? Hospital course, mention meds given and route, prescriptions, significant lab abnormalities, going to OR and other pertinent info. @ -[62-year-old female presented with initial complaint of lightheadedness, anxiety, and suicidal thoughts. Did perform a medical workup on this patient because she has had relatively acute symptoms. Her medical workup is unremarkable. She is evaluated by EPS and felt to require inpatient psychiatric evaluation and treatment. I agree with this assessment.] Undiagnosed new problem with uncertain prognosis? @ -[No] Drug Therapy requiring intensive monitoring for toxicity (Heparin, Nitro, Insulin, Cardizem)? @ -[No] Were any procedures done? @ -[No] Diagnosis/symptom? @ -[Anxiety, suicidal ideation] Acute, or Chronic, or Acute on Chronic? @ -[Acute] Uncomplicated (without systemic symptoms) or Complicated (systemic symptoms)? @ -[complicated] Side effects of treatment? @ -[No] Exacerbation, Progression, or Severe Exacerbation? @ -[No] Poses a threat to life or bodily function? How? (Chest pain, [place], [place], pneumonia, PE, COPD, DKA, ARF, appy, cholecystitis, CVA, Diverticulitis, Homicidal, Suicidal, threat to staff... and all critical care pts) @ -[Suicidal thoughts, potential self-harm.] - Lab Data Result diagrams: 09/18/22 03:17 09/18/22 03:17 Lab Results 09/18/22 09/18/22 09/18/22 Range/Units 03:17 03:17 03:17 WBC 7.8 (3.8-10.6) k/uL RBC 4.93 (3.80-5.40) m/uL Hgb 15.8 (11.4-16.0) gm/dL Hct 48.8 H (34.0-46.0) % MCV 99.0 (80.0-100.0) fL MCH 32.0 (25.0-35.0) pg MCHC 32.3 (31.0-37.0) g/dL RDW 13.5 (11.5-15.5) % Plt Count 326 (150-450) k/uL MPV 8.3 Neutrophils % 74 % Lymphocytes % 17 % Monocytes % 5 % Eosinophils % 2 % Basophils % 0 % Neutrophils # 5.8 (1.3-7.7) k/uL Lymphocytes # 1.3 (1.0-4.8) k/uL Monocytes # 0.4 (0-1.0) k/uL Eosinophils # 0.2 (0-0.7) k/uL Basophils # 0.0 (0-0.2) k/uL PT 9.8 (9.0-12.0) sec INR 0.9 (<1.2) APTT 24.5 (22.0-30.0) sec Sodium 137 (137-145) mmol/L Potassium 4.1 (3.5-5.1) mmol/L Chloride 106 (98-107) mmol/L Carbon Dioxide 25 (22-30) mmol/L Anion Gap 6 mmol/L BUN 14 (7-17) mg/dL Creatinine 0.76 (0.52-1.04) mg/dL Est GFR (CKD-EPI)AfAm >90 (>60 ml/min/1.73 sqM) Est GFR (CKD-EPI)NonAf 84 (>60 ml/min/1.73 sqM) Glucose 101 H (74-99) mg/dL Calcium 8.7 (8.4-10.2) mg/dL Magnesium 2.2 (1.6-2.3) mg/dL Total Bilirubin 0.5 (0.2-1.3) mg/dL AST 16 (14-36) U/L ALT 15 (4-34) U/L Alkaline Phosphatase 87 (38-126) U/L Troponin I (0.000-0.034) ng/mL Total Protein 6.5 (6.3-8.2) g/dL Albumin 3.7 (3.5-5.0) g/dL TSH 2.890 (0.465-4.680) mIU/L Urine Color Urine Appearance (Clear) Urine pH (5.0-8.0) Ur Specific Bernice (1.001-1.035) Urine Protein (Negative) Urine Glucose (UA) (Negative) Urine Ketones (Negative) Urine Blood (Negative) Urine Nitrite (Negative) Urine Bilirubin (Negative) Urine Urobilinogen (<2.0) mg/dL Ur Leukocyte Esterase (Negative) Urine Opiates Screen (NotDetected) Ur Oxycodone Screen (NotDetected) Urine Methadone Screen (NotDetected) Ur Propoxyphene Screen (NotDetected) Ur Barbiturates Screen (NotDetected) U Tricyclic Antidepress (NotDetected) Ur Phencyclidine Scrn (NotDetected) Ur Amphetamines Screen (NotDetected) U Methamphetamines Scrn (NotDetected) U Benzodiazepines Scrn (NotDetected) Urine Cocaine Screen (NotDetected) U Marijuana (THC) Screen (NotDetected) Coronavirus (PCR) (Not Detectd) 09/18/22 09/18/22 09/18/22 Range/Units 03:17 03:56 05:40 WBC (3.8-10.6) k/uL RBC (3.80-5.40) m/uL Hgb (11.4-16.0) gm/dL Hct (34.0-46.0) % MCV (80.0-100.0) fL MCH (25.0-35.0) pg MCHC (31.0-37.0) g/dL RDW (11.5-15.5) % Plt Count (150-450) k/uL MPV Neutrophils % % Lymphocytes % % Monocytes % % Eosinophils % % Basophils % % Neutrophils # (1.3-7.7) k/uL Lymphocytes # (1.0-4.8) k/uL Monocytes # (0-1.0) k/uL Eosinophils # (0-0.7) k/uL Basophils # (0-0.2) k/uL PT (9.0-12.0) sec INR (<1.2) APTT (22.0-30.0) sec Sodium (137-145) mmol/L Potassium (3.5-5.1) mmol/L Chloride (98-107) mmol/L Carbon Dioxide (22-30) mmol/L Anion Gap mmol/L BUN (7-17) mg/dL Creatinine (0.52-1.04) mg/dL Est GFR (CKD-EPI)AfAm (>60 ml/min/1.73 sqM) Est GFR (CKD-EPI)NonAf (>60 ml/min/1.73 sqM) Glucose (74-99) mg/dL Calcium (8.4-10.2) mg/dL Magnesium (1.6-2.3) mg/dL Total Bilirubin (0.2-1.3) mg/dL AST (14-36) U/L ALT (4-34) U/L Alkaline Phosphatase (38-126) U/L Troponin I <0.012 (0.000-0.034) ng/mL Total Protein (6.3-8.2) g/dL Albumin (3.5-5.0) g/dL TSH (0.465-4.680) mIU/L Urine Color Light Yellow Urine Appearance Clear (Clear) Urine pH 5.5 (5.0-8.0) Ur Specific Bernice 1.006 (1.001-1.035) Urine Protein Negative (Negative) Urine Glucose (UA) Negative (Negative) Urine Ketones Negative (Negative) Urine Blood Negative (Negative) Urine Nitrite Negative (Negative) Urine Bilirubin Negative (Negative) Urine Urobilinogen <2.0 (<2.0) mg/dL Ur Leukocyte Esterase Negative (Negative) Urine Opiates Screen Not Detected (NotDetected) Ur Oxycodone Screen Not Detected (NotDetected) Urine Methadone Screen Not Detected (NotDetected) Ur Propoxyphene Screen Not Detected (NotDetected) Ur Barbiturates Screen Not Detected (NotDetected) U Tricyclic Antidepress Not Detected (NotDetected) Ur Phencyclidine Scrn Not Detected (NotDetected) Ur Amphetamines Screen Not Detected (NotDetected) U Methamphetamines Scrn Not Detected (NotDetected) U Benzodiazepines Scrn Not Detected (NotDetected) Urine Cocaine Screen Not Detected (NotDetected) U Marijuana (THC) Screen Not Detected (NotDetected) Coronavirus (PCR) Not Detected (Not Detectd) Disposition Clinical Impression: Anxiety, Depression Disposition: ADMITTED IP TO THIS [facility] Condition: Stable Is patient prescribed a controlled substance at d/c from ED?: No Referrals: Unruly Madrid DO [Primary Care Provider] - 1-2 days Time of Disposition: 06:16
[2022-09-18 04:06] LABS: Appearance,Urine Clear (Clear); Bilirubin,Urine Negative (Negative); Blood,Urine Negative (Negative); Color,Urine Light Yellow; Glucose,Urine (UA) Negative (Negative); Ketones,Urine Negative (Negative); Leukocyte Esterase,Urine Negative (Negative); Nitrite,Urine Negative (Negative); PH, Urine 5.5 (5.0-8.0); Protein,Urine Negative (Negative); Specific Gravity,Urine 1.006 (1.001-1.035); Urobilinogen,Urine <2.0 mg/dL (<2.0)
[2022-09-18 06:04] LABS: Amphetamine Screen,Urine Not Detected (NotDetected); Barbiturate Screen,Urine Not Detected (NotDetected); Benzodiazepines Screen,Urine Not Detected (NotDetected); Cocaine Screen,Urine Not Detected (NotDetected); Methadone Screen, Urine Not Detected (NotDetected); Opiate Screen,Urine Not Detected (NotDetected); Oxycodone Screen, Urine Not Detected (NotDetected); Phencyclidine Screen,Urine Not Detected (NotDetected); Tricyclic Antidepressant,Urine Not Detected (NotDetected); Urn Cannabinoid Scrn Not Detected (NotDetected)
[2022-09-18] MEDS ORDERED: NON FORMULARY DRUG (Desvenlafaxine Succinate [Pristiq] 25 MG Tab.Er.24h) PO SCH (09:00)
[2022-09-18] MEDS: ASCORBIC ACID 500 MG TAB PO SCH (09:28)
[2022-09-18] MEDS: CHOLECALCIFEROL 25 MCG (1000 IU) TABLET PO SCH (09:28)
[2022-09-18] MEDS: clonazePAM 0.5 MG TAB PO SCH ×3 (09:28→18:59)
[2022-09-18] MEDS: ASPIRIN 81 MG PO SCH (09:28)
[2022-09-18] MEDS: LEVOTHYROXINE 50 MCG TAB PO SCH (09:28)
[2022-09-18] MEDS: FOLIC ACID-VIT B COMPLEX-VIT C 1 CAP PO SCH (09:31)
[2022-09-18] MEDS: DESVENLAFAXINE SUCCINATE 25 MG PO SCH (12:36)
[2022-09-18] MEDS ORDERED: MAGNESIUM HYDROXIDE 2,400 MG/10 ML CUP PO PRN (20:37)
[2022-09-18] MEDS ORDERED: HALOPERIDOL LACTATE 5 MG/ML 1 ML VIAL IM PRN (20:37)
[2022-09-18] MEDS ORDERED: MAG HYDROX/AL HYDROX/SIMETH 30 ML CUP PO PRN (20:37)
[2022-09-18] MEDS ORDERED: ACETAMINOPHEN TAB 325 MG TAB PO PRN (20:37)
[2022-09-18] MEDS ORDERED: haloperidoL 5 MG TAB PO PRN (20:39)
[2022-09-18] MEDS ORDERED: LORazepam 2 MG/ML INJ IM PRN (20:39)
[2022-09-18] MEDS ORDERED: MAGNESIUM OXIDE 400 MG TAB PO SCH (21:00)
[2022-09-18] MEDS: clonazePAM 0.5 MG TAB PO PRN (22:23)
--- NOTE | 2022-09-19 02:20 | P.CONS ---
History of Present Illness - Reason for Consult Consult date: 09/19/22 - History of Present Illness The patient is a 62-year-old female with a PMH of essential thrombocytosis, hypothyroidism, and anxiety who had presented to the emergency room with complaints of worsening anxiety and depression with suicidal ideation. The patient was admitted to the mental health unit where she was seen and evaluated. The patient reports feeling well and had no active complaints at the time of interview. She reports smoking half pack of cigarettes daily. Denied alcohol or substance use. Denied experiencing chest discomfort, shortness of breath, fever, chills, cough, nausea, vomiting, abdominal pain, diarrhea. Review of systems: Pertinent positives and negatives as discussed in HPI, a complete review of systems was performed and all other systems are negative. Physical examination: General: non toxic, no distress, appears at stated age, normal weight Derm: no unusual rashes/lesions, no unusual ecchymoses, warm, dry Head: atraumatic, normocephalic, symmetric Eyes: EOMI, no lid lag, anicteric sclera ENT: Nose and ears atraumatic, no thrush, no pharyngeal erythema Neck: trachea midline, supple Mouth: no lip lesion, mucus membranes moist Cardiovascular: S1S2 reg, no murmur, no edema Lungs: CTA bilateral, no rhonchi, no rales , no accessory muscle use Abdominal: soft, nontender to palpation, no guarding Ext: no gross muscle atrophy, no contractures, Neuro: No gross focal neuro deficits noted Psych: Alert, oriented, appropriate affect Assessment: Essential thrombocytosis, not no medications Hypothyroidism Anxiety and depression Imaging: EKG in the emergency room revealed sinus rhythm at 71 bpm with left axis deviation with poor R-wave progression as reviewed by me. Data Review: Laboratory evaluation reviewed with hemoglobin of 15.8, WBC count 7.8, platelets 326, sodium 137, potassium 4.1, BUN 14, creatinine 0.76, troponin less than 0.012, UA and urine toxicology unremarkable. Plan: Patient follows with Dr. Arora for ET. Reports it has been well controlled without medications Continue with home dose of 50 g by mouth daily Synthroid Defer management of depression with suicidal ideation and anxiety to primary psychiatry service Thank you for allowing us to participate in the care of this patient. We will follow peripherally. Do not hesitate to contact us with questions. Someone can be reached from the [facility] hospitalist group at all hours of the day at [phone]. 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 History of Any Multi-Drug Resistant Organisms: None Reported Past Surgical History: Breast Surgery, Cholecystectomy, Hysterectomy Additional Past Surgical History / Comment(s): KIDNEY URETERS RE-ROUTING D/T FREQUENT UTIS YRS AGO. LUMPECTOMIES OF BREAST-BENIGN, sinus surgery Past Anesthesia/Blood Transfusion Reactions: No Reported Reaction Additional Past Anesthesia/Blood Transfusion Reaction / Comm: NEVER RECIEVED BLOOD PRODUCT. Past Psychological History: Anxiety, Depression, Panic Disorder Smoking Status: Current every day smoker Past Alcohol Use History: None Reported Additional Past Alcohol Use History / Comment(s): started smoking at age 18, 0.5-1ppd Past Drug Use History: None Reported - Past Family History Father Family Medical History: No Reported History Additional Family Medical History / Comment(s): FATHER IS LIVING AND IN HIS 70'S Mother Family Medical History: Cancer Additional Family Medical History / Comment(s): HX OF OVARIAN CA. Brother(s) Family Medical History: Cancer Additional Family Medical History / Comment(s): ESOPHAGUS CANCER Medications and Allergies Home Medications Medication Instructions Recorded Confirmed Type Levothyroxine Sodium [Synthroid] 50 mcg PO DAILY 06/14/22 09/18/22 History Aspirin 81 mg PO DAILY 08/08/22 09/18/22 History Cholecalciferol [Vitamin D3 (25 25 mcg PO DAILY 08/08/22 09/18/22 History Mcg = 1000 Iu)] clonazePAM [KlonoPIN] 0.5 mg PO QID 08/08/22 09/18/22 History Magnesium Malate 500 mg PO HS 08/10/22 09/18/22 History Ascorbic Acid [Vitamin C] 500 mg PO DAILY 09/18/22 09/18/22 History Desvenlafaxine Succinate [Pristiq 25 mg PO DAILY@0800 09/18/22 09/18/22 History ER] Vitamin B Complex 1 cap PO DAILY 09/18/22 09/18/22 History Allergies Allergy/AdvReac Type Severity Reaction Status Date / Time latex Allergy Severe Anaphylaxis Verified 09/18/22 08:58 Penicillins AdvReac Severe Rash/Hives/Shortness Verified 09/18/22 08:58 of Breath prednisone AdvReac MAKES HER Verified 09/18/22 08:58 FEEL LIGHTHEADED Physical Exam Vitals: Vital Signs Temp Pulse Pulse Resp BP BP Pulse Ox 09/18/22 20:44 97.8 F 60 26 H 121/68 95 09/18/22 16:24 64 16 120/72 96 09/18/22 08:55 97.8 F 80 18 117/81 95 09/18/22 02:43 98.2 F 85 18 144/79 98 Intake and Output 09/18/22 09/18/22 09/19/22 14:59 22:59 06:59 Other: Weight 75.948 kg Results CBC & Chem 7: 09/18/22 03:17 09/18/22 03:17 Labs: Abnormal Lab Results - Last 24 Hours (Table) 09/18/22 09/18/22 Range/Units 03:17 03:17 Hct 48.8 H (34.0-46.0) % Glucose 101 H (74-99) mg/dL
[2022-09-19] MEDS: LEVOTHYROXINE 50 MCG TAB PO SCH (05:57)
[2022-09-19 07:17] VITALS: BP 123/58; PULSE 47; RESP 14; TEMP 98
[2022-09-19] MEDS: ASCORBIC ACID 500 MG TAB PO SCH (08:14)
[2022-09-19] MEDS: clonazePAM 0.5 MG TAB PO PRN (08:14)
[2022-09-19] MEDS: FOLIC ACID-VIT B COMPLEX-VIT C 1 CAP PO SCH (08:15)
[2022-09-19] MEDS: CHOLECALCIFEROL 25 MCG (1000 IU) TABLET PO SCH (08:15)
[2022-09-19] MEDS: ASPIRIN 81 MG PO SCH (08:15)
[2022-09-19] MEDS: DESVENLAFAXINE SUCCINATE 25 MG PO SCH (08:15)
--- NOTE | 2022-09-19 14:34 | P.HP ---
Psychiatric H&P - . H&P Date: 09/19/22 History & Physical: Allergies Allergy/AdvReac Type Severity Reaction Status Date / Time latex Allergy Severe Anaphylaxis Verified 09/18/22 08:58 Penicillins AdvReac Severe Rash/Hives/Shortness Verified 09/18/22 08:58 of Breath prednisone AdvReac MAKES HER Verified 09/18/22 08:58 FEEL LIGHTHEADED Vital Signs Temp 98.0 F 09/19/22 07:16 Pulse 47 L 09/19/22 07:16 Resp 14 09/19/22 07:16 BP 123/58 09/19/22 07:16 Pulse Ox 95 09/18/22 20:44 FiO2 Intake & Output 09/18/22 09/19/22 09/19/22 18:59 06:59 18:59 Weight 75.948 kg Laboratory Last Values WBC 7.8 k/uL (3.8-10.6) 09/18/22 03:17 RBC 4.93 m/uL (3.80-5.40) 09/18/22 03:17 Hgb 15.8 gm/dL (11.4-16.0) 09/18/22 03:17 Hct 48.8 % (34.0-46.0) H 09/18/22 03:17 MCV 99.0 fL (80.0-100.0) 09/18/22 03:17 MCH 32.0 pg (25.0-35.0) 09/18/22 03:17 MCHC 32.3 g/dL (31.0-37.0) 09/18/22 03:17 RDW 13.5 % (11.5-15.5) 09/18/22 03:17 Plt Count 326 k/uL (150-450) 09/18/22 03:17 MPV 8.3 09/18/22 03:17 Neutrophils % 74 % 09/18/22 03:17 Lymphocytes % 17 % 09/18/22 03:17 Monocytes % 5 % 09/18/22 03:17 Eosinophils % 2 % 09/18/22 03:17 Basophils % 0 % 09/18/22 03:17 Neutrophils # 5.8 k/uL (1.3-7.7) 09/18/22 03:17 Lymphocytes # 1.3 k/uL (1.0-4.8) 09/18/22 03:17 Monocytes # 0.4 k/uL (0-1.0) 09/18/22 03:17 Eosinophils # 0.2 k/uL (0-0.7) 09/18/22 03:17 Basophils # 0.0 k/uL (0-0.2) 09/18/22 03:17 PT 9.8 sec (9.0-12.0) 09/18/22 03:17 INR 0.9 (<1.2) 09/18/22 03:17 APTT 24.5 sec (22.0-30.0) 09/18/22 03:17 Sodium 137 mmol/L (137-145) 09/18/22 03:17 Potassium 4.1 mmol/L (3.5-5.1) 09/18/22 03:17 Chloride 106 mmol/L (98-107) 09/18/22 03:17 Carbon Dioxide 25 mmol/L (22-30) 09/18/22 03:17 Anion Gap 6 mmol/L 09/18/22 03:17 BUN 14 mg/dL (7-17) 09/18/22 03:17 Creatinine 0.76 mg/dL (0.52-1.04) 09/18/22 03:17 Est GFR (CKD-EPI)AfAm >90 (>60 ml/min/1.73 sqM) 09/18/22 03:17 Est GFR (CKD-EPI)NonAf 84 (>60 ml/min/1.73 sqM) 09/18/22 03:17 Glucose 101 mg/dL (74-99) H 09/18/22 03:[address] Glu mg/dL 113 09/19/22 08:20 Hemoglobin A1c 5.6 % (0.0-6.0) 09/19/22 08:20 Calcium 8.7 mg/dL (8.4-10.2) 09/18/22 03:17 Magnesium 2.2 mg/dL (1.6-2.3) 09/18/22 03:17 Total Bilirubin 0.5 mg/dL (0.2-1.3) 09/18/22 03:17 AST 16 U/L (14-36) 09/18/22 03:17 ALT 15 U/L (4-34) 09/18/22 03:17 Alkaline Phosphatase 87 U/L (38-126) 09/18/22 03:17 Troponin I <0.012 ng/mL (0.000-0.034) 09/18/22 03:17 Total Protein 6.5 g/dL (6.3-8.2) 09/18/22 03:17 Albumin 3.7 g/dL (3.5-5.0) 09/18/22 03:17 TSH 2.890 mIU/L (0.465-4.680) 09/18/22 03:17 Urine Color Light Yellow 09/18/22 03:56 Urine Appearance Clear (Clear) 09/18/22 03:56 Urine pH 5.5 (5.0-8.0) 09/18/22 03:56 Ur Specific [place] 1.006 (1.001-1.035) 09/18/22 03:56 Urine Protein Negative (Negative) 09/18/22 03:56 Urine Glucose (UA) Negative (Negative) 09/18/22 03:56 Urine Ketones Negative (Negative) 09/18/22 03:56 Urine Blood Negative (Negative) 09/18/22 03:56 Urine Nitrite Negative (Negative) 09/18/22 03:56 Urine Bilirubin Negative (Negative) 09/18/22 03:56 Urine Urobilinogen <2.0 mg/dL (<2.0) 09/18/22 03:56 Ur Leukocyte Esterase Negative (Negative) 09/18/22 03:56 Urine Opiates Screen Not Detected (NotDetected) 09/18/22 03:56 Ur Oxycodone Screen Not Detected (NotDetected) 09/18/22 03:56 Urine Methadone Screen Not Detected (NotDetected) 09/18/22 03:56 Ur Propoxyphene Screen Not Detected (NotDetected) 09/18/22 03:56 Ur Barbiturates Screen Not Detected (NotDetected) 09/18/22 03:56 U Tricyclic Antidepress Not Detected (NotDetected) 09/18/22 03:56 Ur Phencyclidine Scrn Not Detected (NotDetected) 09/18/22 03:56 Ur Amphetamines Screen Not Detected (NotDetected) 09/18/22 03:56 U Methamphetamines Scrn Not Detected (NotDetected) 09/18/22 03:56 U Benzodiazepines Scrn Not Detected (NotDetected) 09/18/22 03:56 Urine Cocaine Screen Not Detected (NotDetected) 09/18/22 03:56 U Marijuana (THC) Screen Not Detected (NotDetected) 09/18/22 03:56 Coronavirus (PCR) Not Detected (Not Detectd) 09/18/22 05:40 09/19/22 14:33 IDENTIFYING DATA: Patient is a , employed, 62-year-old female with significant history of anxiety presented to our hospital on the recognition of family for anxiety and suicidal ideation. HPI: Patient presented to the hospital on 09/18/2022, along with her , to the emergency department with a chief complaint of suicidal ideation with no plan. The patient reports that she has been expressing different somatic symptoms since her medications have been adjusted. She reports that she was previously on Singulair however this medication seemed to increase intrusive suicidal thoughts. She reports that she stopped taking the medication and began experiencing an improvement in mood. She reports that she was on Lexapro however this caused her to experience significant tinnitus. She was switched to Pristiq however reported that the Pristiq seem to exacerbate some of her anxiety symptoms. In regards to current symptoms of depression, the patient is denying any change in appetite, change in hygiene and grooming, hopelessness, helplessness, or difficulty with sleep. She does report that she occasionally has suicidal ideation however he vehemently denies any intention or plan. The patient vehemently denies any prior attempts at suicide. She reports that she has a strong support system of friends and family and has lutheran beliefs against suicide. Furthermore, she denies any access to firearms or other weapons. She reports a duty to her children and her community as protective factors. She also reports that her sister has recently arrived in [place] on to provide her with more support. The patient remains future and goal oriented with a desire to pursue outpatient therapy and treatment. In regards to any significant symptoms of bipolar disorder, the patient denies any periods of excessive energy, grandiosity, or mood lability. The patient is denying any history of auditory or visual visitations. She denies any history of paranoia or other delusions. Of note, the patient reports that she was subject to chemical exposure at [place]. The patient reports that her father was in the [employer] and her family lived on campus. She does admit to chemical exposure however is unable to identify which chemicals. The patient does report that she has a significant history of multiple somatic symptoms throughout her life. The patient reports that she had a history of a nervous breakdown which describes as excessive panic attacks when there was concern for infidelity during her first marriage. PAST PSYCHIATRIC HISTORY: Patient states that she has been to see diagnosed with anxiety and depression. The patient reports that she has been chronically prescribed Klonopin. She was most recently trialed on different medications including Pristiq, Lexapro, and Zoloft. She reports being previously on MAOIs in the distant past. Patient denies any previous psychiatric hospitalizations. Patient denies any psychiatric outpatient follow-up. Patient denies any history of suicide attempts in the past. 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 History of Any Multi-Drug Resistant Organisms: None Reported Past Surgical History: Breast Surgery, Cholecystectomy, Hysterectomy Additional Past Surgical History / Comment(s): KIDNEY URETERS RE-ROUTING D/T FREQUENT UTIS YRS AGO. LUMPECTOMIES OF BREAST-BENIGN, sinus surgery Past Anesthesia/Blood Transfusion Reactions: No Reported Reaction Additional Past Anesthesia/Blood Transfusion Reaction / Comm: NEVER RECIEVED BLOOD PRODUCT. Past Psychological History: Anxiety, Depression, Panic Disorder Smoking Status: Current every day smoker Past Alcohol Use History: None Reported Additional Past Alcohol Use History / Comment(s): started smoking at age 18, 0.5-1ppd Past Drug Use History: None Reported ALLERGIES: Latex, penicillin, prednisone CHEMICAL DEPENDENCY HISTORY: Patient reports 1/2 - 1 PPD of tobacco use. She reports no significant alcohol, marijuana, or illicit drug use. FAMILY PSYCHIATRIC/SUBSTANCE USE HISTORY: Patient reports her mother and sister had "nervous breakdowns." SOCIAL HISTORY: Patient was born and raised in [place]. She is currently on her fifth marriage and has been with her current for the past 17 years. She her first twice and he is the father of 3 of her adult children. She currently lives with her . She is now employed in insurance company. She reports a [employer]reg[employer] christopher. She denies any legal issues or concerns. MENTAL STATUS EXAM: General Appearance: Patient appears to be stated age is alert, directable, and attempts to cooperate. Patient appears to have good hygiene and grooming. Behavior: Patient is seated without any agitated behavior. Normal psychomotor activity. Speech: Patient's speech is fluent and nonpressured. Mood/Affect: Patient reports their mood is depressed, affect is congruent and constricted. Suicidality/Homicidality: Patient vehemently denies any suicidal or homicidal ideation, intention, and/or plan. Perceptions: Patient denies any visual hallucinations and denies any auditory hallucinations Though content/process: There is no evidence of any delusional thought content and thought process is linear and goal-directed. Memory and concentration: AOX3, grossly intact for the purposes of this session. Can spell "WORLD" backwards Judgment and insight: Good STRENGTHS/WEAKNESSES: Strength is that the patient has lutheran beliefs against suicide, has never attempted suicide, has no access to firearms or weapons, has no history of substance abuse, and has a strong support system. She is future and goal oriented and is seeking treatment. No identifiable weaknesses aside from chronic benzodiazepine use. INTELLECT: average IMPRESSIONS: Somatic symptoms disorder Generalized anxiety disorder PLAN: -Patient does not meet criteria for inpatient psychiatric hospitalization and therefore will subsequently be discharged. She is requesting discharge. -The patient was informed that she would best follow-up in the outpatient s etting. See Strengths/Weaknesses above to see justification for discharge. -No medication adjustments will be made at this time. -Approximately 30 minutes was spent providing the patient was psychoeducation and supportive psychotherapy. 09/19/22 14:33
--- NOTE | 2022-09-19 14:37 | P.DS ---
Providers Date of admission: 09/18/22 20:20 Expected date of discharge: 09/19/22 Attending physician: Lito Chavis MD Consults: 09/18/22 20:37 Consult Physician Routine Consulting Provider: Smitha Pollock Consult Reason/Comments: H&P and medical Do you want consulting provider notified?: Yes Primary care physician: Unruly Madrid - Discharge Diagnosis(es) (1) Generalized anxiety disorder Status: Acute Priority: High (2) Somatic symptom disorder Status: Acute Priority: High Hospital Course: Admission HPI: Patient is a , employed, 62-year-old female with significant history of anxiety presented to our hospital on the recognition of family for anxiety and suicidal ideation. HPI: Patient presented to the hospital on 09/18/2022, along with her , to the emergency department with a chief complaint of suicidal ideation with no plan. The patient reports that she has been expressing different somatic symptoms since her medications have been adjusted. She reports that she was previously on Singulair however this medication seemed to increase intrusive suicidal thoughts. She reports that she stopped taking the medication and began experiencing an improvement in mood. She reports that she was on Lexapro however this caused her to experience significant tinnitus. She was switched to Pristiq however reported that the Pristiq seem to exacerbate some of her anxiety symptoms. In regards to current symptoms of depression, the patient is denying any change in appetite, change in hygiene and grooming, hopelessness, helplessness, or difficulty with sleep. She does report that she occasionally has suicidal ideation however he vehemently denies any intention or plan. The patient vehemently denies any prior attempts at suicide. She reports that she has a [facility] support system of friends and family and has jain beliefs against suicide. Furthermore, she denies any access to firearms or other weapons. She reports a duty to her children and her community as protective factors. She also reports that her sister has recently arrived in [place] on to provide her with more support. The patient remains future and goal oriented with a desire to pursue outpatient therapy and treatment. In regards to any significant symptoms of bipolar disorder, the patient denies any periods of excessive energy, grandiosity, or mood lability. The patient is denying any history of auditory or visual visitations. She denies any history of paranoia or other delusions. Of note, the patient reports that she was subject to chemical exposure at [place]. The patient reports that her father was in the [employer] and her family lived on campus. She does admit to chemical exposure however is unable to identify which chemicals. The patient does report that she has a significant history of multiple somatic symptoms throughout her life. The patient reports that she had a history of a nervous breakdown which describes as excessive panic attacks when there was concern for infidelity during her first marriage. Patient states that she has been to see diagnosed with anxiety and depression. The patient reports that she has been chronically prescribed Klonopin. She was most recently trialed on different medications including Pristiq, Lexapro, and Zoloft. She reports being previously on MAOIs in the distant past. Patient denies any previous psychiatric hospitalizations. Patient denies any psychiatric outpatient follow-up. Patient denies any history of suicide attempts in the past. Hospital course: After initial psychiatric evaluation, it was determined that the patient does not present with any imminent risk of harm to self or others. She is not overtly manic or psychotic. She is future and goal oriented and has numerous protective factors and limited risk factors. The patient furthermore is desiring discharge. There is no criteria for continued inpatient psychiatric hospitalization and the patient is subsequently discharged with recommendations to follow-up for mental health in the outpatient setting. She reports no medical issues or concerns to this provider on the day of discharge and is denying any chest pain, SOB, palpitations, or lightheadedness. Mental status exam: General Appearance: Patient appears to be stated age is alert, pleasant, and cooperative. Patient is in no acute distress and has fair hygiene and grooming Behavior: Patient is calmly seated without any agitated behavior. Speech: Patient's speech is fluent and nonpressured. Mood/Affect: Patient reports their mood is "feeling better after talking to yo u", affect is congruent and euthymic. Suicidality/Homicidality: Patient denies having any suicidal or homicidal ideation intent or plan. Perceptions: Patient denies any auditory or visual hallucinations. Though content/process: There is no evidence of any delusional thought content and thought process is linear and goal-directed. Patient is future and goal oriented. Memory and concentration: AOX3, grossly intact for the purposes of this session. Can spell "WORLD" backwards correctly. Judgment and insight: Good Impression: Somatic symptoms disorder Generalized anxiety disorder Plan: -Continue with discharge today as patient has improved and stabilized psychiatrically and is not currently an imminent threat to herself and/or others. -Strength is that the patient has jain beliefs against suicide, has never attempted suicide, has no access to firearms or weapons, has no history of substance abuse, and has a strong support system. She is future and goal oriented and is seeking treatment. No identifiable weaknesses aside from chronic benzodiazepine use. -No medication adjustments were made. Patient may continue current regimen. -Patient was counseled on the need for medication compliance and appropriate follow-up at mental health and also primary care for medical issues. Patient verbalized understanding and agreed. -Patient encouraged for outpatient follow-up -Patient counseled on abstaining from recreational drugs and marijuana and alcohol. Was informed/educated on the adverse effects on their physical and mental health. Patient verbally agreed and understood. -Patient was instructed to return to the hospital or seek immediate medical care if their psychiatric or medical symptoms do worsen or reoccur -Psychoeducation and supportive therapy provided to patient. Risks and benefits of pharmacological treatment versus the risks and benefits of nontreatment weight and discussed. Informed consent discussion held. Common side effects of psychotropics discussed such as, but not limited to headache, GI disturbance, sexual dysfunction, movement disorders, sedation, and orthostatic hypotension. Life threatening and blackbox warnings of prescribed medications also discussed. Potential risks of operating a vehicle or heavy machinery discussed with patient at length. Advised on importance of compliance and a reliable and responsible manner. Patient advised to review FDA consumer labeling of all medications prior to taking. Patient verbalized understanding of potential risks, and agrees with current treatment plan. Patient advised to medically con tact physician/emergency personnel if any acute changes in condition occur. Vital Signs Temp 98.0 F 09/19/22 07:16 Pulse 47 L 09/19/22 07:16 Resp 14 09/19/22 07:16 BP 123/58 09/19/22 07:16 Pulse Ox 95 09/18/22 20:44 FiO2 Intake & Output 09/18/22 09/19/22 09/19/22 18:59 06:59 18:59 Weight 75.948 kg Laboratory Results WBC 7.8 k/uL (3.8-10.6) 09/18/22 03:17 RBC 4.93 m/uL (3.80-5.40) 09/18/22 03:17 Hgb 15.8 gm/dL (11.4-16.0) 09/18/22 03:17 Hct 48.8 % (34.0-46.0) H 09/18/22 03:17 MCV 99.0 fL (80.0-100.0) 09/18/22 03:17 MCH 32.0 pg (25.0-35.0) 09/18/22 03:17 MCHC 32.3 g/dL (31.0-37.0) 09/18/22 03:17 RDW 13.5 % (11.5-15.5) 09/18/22 03:17 Plt Count 326 k/uL (150-450) 09/18/22 03:17 MPV 8.3 09/18/22 03:17 Neutrophils % 74 % 09/18/22 03:17 Lymphocytes % 17 % 09/18/22 03:17 Monocytes % 5 % 09/18/22 03:17 Eosinophils % 2 % 09/18/22 03:17 Basophils % 0 % 09/18/22 03:17 Neutrophils # 5.8 k/uL (1.3-7.7) 09/18/22 03:17 Lymphocytes # 1.3 k/uL (1.0-4.8) 09/18/22 03:17 Monocytes # 0.4 k/uL (0-1.0) 09/18/22 03:17 Eosinophils # 0.2 k/uL (0-0.7) 09/18/22 03:17 Basophils # 0.0 k/uL (0-0.2) 09/18/22 03:17 PT 9.8 sec (9.0-12.0) 09/18/22 03:17 INR 0.9 (<1.2) 09/18/22 03:17 APTT 24.5 sec (22.0-30.0) 09/18/22 03:17 Sodium 137 mmol/L (137-145) 09/18/22 03:17 Potassium 4.1 mmol/L (3.5-5.1) 09/18/22 03:17 Chloride 106 mmol/L (98-107) 09/18/22 03:17 Carbon Dioxide 25 mmol/L (22-30) 09/18/22 03:17 Anion Gap 6 mmol/L 09/18/22 03:17 BUN 14 mg/dL (7-17) 09/18/22 03:17 Creatinine 0.76 mg/dL (0.52-1.04) 09/18/22 03:17 Est GFR (CKD-EPI)AfAm >90 (>60 ml/min/1.73 sqM) 09/18/22 03:17 Est GFR (CKD-EPI)NonAf 84 (>60 ml/min/1.73 sqM) 09/18/22 03:17 Glucose 101 mg/dL (74-99) H 09/18/22 03:[address] Glu mg/dL 113 09/19/22 08:20 Hemoglobin A1c 5.6 % (0.0-6.0) 09/19/22 08:20 Calcium 8.7 mg/dL (8.4-10.2) 09/18/22 03:17 Magnesium 2.2 mg/dL (1.6-2.3) 09/18/22 03:17 Total Bilirubin 0.5 mg/dL (0.2-1.3) 09/18/22 03:17 AST 16 U/L (14-36) 09/18/22 03:17 ALT 15 U/L (4-34) 09/18/22 03:17 Alkaline Phosphatase 87 U/L (38-126) 09/18/22 03:17 Troponin I <0.012 ng/mL (0.000-0.034) 09/18/22 03:17 Total Protein 6.5 g/dL (6.3-8.2) 09/18/22 03:17 Albumin 3.7 g/dL (3.5-5.0) 09/18/22 03:17 TSH 2.890 mIU/L (0.465-4.680) 09/18/22 03:17 Urine Color Light Yellow 09/18/22 03:56 Urine Appearance Clear (Clear) 09/18/22 03:56 Urine pH 5.5 (5.0-8.0) 09/18/22 03:56 Ur Specific [place] 1.006 (1.001-1.035) 09/18/22 03:56 Urine Protein Negative (Negative) 09/18/22 03:56 Urine Glucose (UA) Negative (Negative) 09/18/22 03:56 Urine Ketones Negative (Negative) 09/18/22 03:56 Urine Blood Negative (Negative) 09/18/22 03:56 Urine Nitrite Negative (Negative) 09/18/22 03:56 Urine Bilirubin Negative (Negative) 09/18/22 03:56 Urine Urobilinogen <2.0 mg/dL (<2.0) 09/18/22 03:56 Ur Leukocyte Esterase Negative (Negative) 09/18/22 03:56 Urine Opiates Screen Not Detected (NotDetected) 09/18/22 03:56 Ur Oxycodone Screen Not Detected (NotDetected) 09/18/22 03:56 Urine Methadone Screen Not Detected (NotDetected) 09/18/22 03:56 Ur Propoxyphene Screen Not Detected (NotDetected) 09/18/22 03:56 Ur Barbiturates Screen Not Detected (NotDetected) 09/18/22 03:56 U Tricyclic Antidepress Not Detected (NotDetected) 09/18/22 03:56 Ur Phencyclidine Scrn Not Detected (NotDetected) 09/18/22 03:56 Ur Amphetamines Screen Not Detected (NotDetected) 09/18/22 03:56 U Methamphetamines Scrn Not Detected (NotDetected) 09/18/22 03:56 U Benzodiazepines Scrn Not Detected (NotDetected) 09/18/22 03:56 Urine Cocaine Screen Not Detected (NotDetected) 09/18/22 03:56 U Marijuana (THC) Screen Not Detected (NotDetected) 09/18/22 03:56 Coronavirus (PCR) Not Detected (Not Detectd) 09/18/22 05:40 Allergies Allergy/AdvReac Type Severity Reaction Status Date / Time latex Allergy Severe Anaphylaxis Verified 09/18/22 08:58 Penicillins AdvReac Severe Rash/Hives/Shortness Verified 09/18/22 08:58 of Breath prednisone AdvReac MAKES HER Verified 09/18/22 08:58 FEEL LIGHTHEADED Patient Condition at Discharge: Stable Plan - Discharge Summary Discharge Rx Participant: No New Discharge Prescriptions: Continue Levothyroxine Sodium [Synthroid] 50 mcg PO DAILY Magnesium Malate 500 mg PO HS Vitamin B Complex 1 cap PO DAILY clonazePAM [KlonoPIN] 0.5 mg PO QID Aspirin 81 mg PO DAILY Cholecalciferol [Vitamin D3 (25 Mcg = 1000 Iu)] 25 mcg PO DAILY Ascorbic Acid [Vitamin C] 500 mg PO DAILY Desvenlafaxine Succinate [Pristiq] 25 mg PO DAILY@0800 Discharge Medication List Levothyroxine Sodium [Synthroid] 50 mcg PO DAILY 06/14/22 [History] Aspirin 81 mg PO DAILY 08/08/22 [History] Cholecalciferol [Vitamin D3 (25 Mcg = 1000 Iu)] 25 mcg PO DAILY 08/08/22 [History] clonazePAM [KlonoPIN] 0.5 mg PO QID 08/08/22 [History] Magnesium Malate 500 mg PO HS 08/10/22 [History] Ascorbic Acid [Vitamin C] 500 mg PO DAILY 09/18/22 [History] Desvenlafaxine Succinate [Pristiq] 25 mg PO DAILY@0800 09/18/22 [History] Vitamin B Complex 1 cap PO DAILY 09/18/22 [History] Follow up Appointment(s)/Referral(s): [facility] [employer] [facility] [Outside] - 09/25/22 2:00 pm (with Candace) Unruly Madrid DO [Primary Care Provider] - 1-2 days Patient Instructions/Handouts: How to Stop Smoking (DC), Depression (DC) Activity/Diet/Wound Care/Special Instructions: Avoid the use of street drugs and alcohol. Take all medications as prescribed. When you are in need of refills on your medications, please contact your medical provider and/or outpatient psychiatrist to have this done. Please go to scheduled outpatient appointments for aftercare treatment. If symptoms return or become worse, call the crisis line at and/or go to the nearest emergency room for evaluation. Discharge Disposition: HOME SELF-CARE
[2022-09-19 15:50] LABS: Chol/HDL Ratio 4.68 Ratio; LDL Cholesterol,Calculated 108.3 mg/dL (0.0-131.0)
== END 2022-09-19 13:55 | disposition home or self-care (01) | DRG 880 ==
LOC: EC 02:41 → 3MHU 20:20
PROVIDERS: ADMIT Psychiatry & Neurology Psychiatry; ATTEND Psychiatry & Neurology Psychiatry
DX: F41.1 Generalized anxiety disorder (principal); R45.851 Suicidal ideations; F32.A Depression, unspecified; D47.3 Essential (hemorrhagic) thrombocythemia; E03.9 Hypothyroidism, unspecified; F41.0 Panic disorder [episodic paroxysmal anxiety]; F17.210 Nicotine dependence, cigarettes, uncomplicated; F45.9 Somatoform disorder, unspecified; Z77.098 Contact with and (suspected) exposure to other hazardous, chiefly nonmedicinal, chemicals; Z79.82 Long term (current) use of aspirin; Z79.890 Hormone replacement therapy; Z79.899 Other long term (current) drug therapy; Z87.440 Personal history of urinary (tract) infections; Z90.710 Acquired absence of both cervix and uterus; Z88.8 Allergy status to other drugs, medicaments and biological substances; Z91.040 Latex allergy status
CPT/HCPCS: 36415; 80053; 80061; 80306; 81003; 82075; 83036; 83735; 84443; 84484; 85025; 85610; 85730; 87635; 93005; 96360; 96361; 99285

== ENCOUNTER 2022-10-22 04:08 | Emergency (ER) | payer OTHER ==
[2022-10-22 04:18] VITALS: TEMP 98.2
[2022-10-22] MEDS ORDERED: ONDANSETRON 4 MG/2 ML VIAL IVP STA (05:50)
[2022-10-22 06:05] LABS: Basophils % (A) 1 %; Eosinophils # (A) 0.1 k/uL (0-0.7); Eosinophils % (A) 2 %; HCT 52.5 % (34.0-46.0); HGB 17.4 gm/dL (11.4-16.0); Lymphocytes # (A) 1.5 k/uL (1.0-4.8); Lymphocytes % (A) 20 %; MCH 32.3 pg (25.0-35.0); MCHC 33.2 g/dL (31.0-37.0); MCV 97.3 fL (80.0-100.0); Mean Platelet Volume 8.5; Monocytes # (A) 0.4 k/uL (0-1.0); Monocytes % (A) 6 %; Neutrophils % (A) 70 %; Platelet Count 350 k/uL (150-450); RBC 5.39 m/uL (3.80-5.40); WBC 7.2 k/uL (3.8-10.6)
[2022-10-22 06:11] LABS: ALT 29 U/L (4-34); African American GFR (CKD) >90 (>60 ml/min/1.73 sqM); Anion Gap 9 mmol/L; Blood Urea Nitrogen 10 mg/dL (7-17); Calcium 9.1 mg/dL (8.4-10.2); Carbon Dioxide 26 mmol/L (22-30); Chloride 104 mmol/L (98-107); Glucose 103 mg/dL (74-99); Lipase 59 U/L (23-300); Non-African American GFR(CKD) 90 (>60 ml/min/1.73 sqM); Sodium 139 mmol/L (137-145); Total Bilirubin 1.1 mg/dL (0.2-1.3)
[2022-10-22 06:13] LABS: AST 33 U/L (14-36); Albumin 4.4 g/dL (3.5-5.0); Alkaline Phosphatase 78 U/L (38-126); Magnesium 2.4 mg/dL (1.6-2.3); Potassium 4.4 mmol/L (3.5-5.1); Total Protein 7.7 g/dL (6.3-8.2)
--- NOTE | 2022-10-22 06:25 | ED ---
General Adult HPI - General Chief complaint: Dizziness Stated complaint: dizziness Time Seen by Provider: 10/22/22 04:45 Source: patient Mode of arrival: wheelchair - History of Present Illness Initial comments: 62 year old female presents to ED with complaint of dizziness. Recently states her psych meds were changed and she feels like they are giving her side effects. She has a room spinning sensation, worse with head movement. She has not talked to her doctor who provides the prescriptions about her side effects. No history of vertigo. No head trauma. no visual changes or weakness in her extremities. no fevers. Admits nausea with some abd discomfort which is generalized. no vomiting. no chest pain. - Related Data Home Medications Medication Instructions Recorded Confirmed Levothyroxine Sodium [Synthroid] 50 mcg PO DAILY@0700 06/14/22 11/01/22 Cholecalciferol [Vitamin D3 (25 25 mcg PO DAILY@0800 08/08/22 11/01/22 Mcg = 1000 Iu)] Magnesium Malate 500 mg PO HS@2200 08/10/22 11/01/22 Ascorbic Acid [Vitamin C] 500 mg PO DAILY@0800 09/18/22 11/01/22 Desvenlafaxine Succinate [Pristiq] 25 mg PO DAILY@0800 09/18/22 11/01/22 Cyanocobalamin (Vitamin B-12) 1,000 mcg PO DAILY@0800 11/01/22 11/01/22 [Vitamin B-12] Nux Vomica 1 - 2 tab SUBLINGUAL Q2H PRN 11/01/22 11/01/22 clonazePAM [KlonoPIN] 0.5 mg PO QID@09,14,,11/01/22 11/01/22 Allergies Allergy/AdvReac Type Severity Reaction Status Date / Time latex Allergy Severe Anaphylaxis Verified 11/01/22 17:47 levofloxacin [From Levaquin] Allergy Unknown Verified 11/01/22 17:47 Penicillins AdvReac Severe Rash/Hives/Shortness Verified 11/01/22 17:47 of Breath buspirone [From BuSpar] AdvReac dizziness/n Verified 11/01/22 17:47 ausea escitalopram [From Lexapro] AdvReac heart Verified 11/01/22 17:47 racing prednisone AdvReac MAKES HER Verified 11/01/22 17:47 FEEL LIGHTHEADED vilazodone [From Viibryd] AdvReac lowered BP Verified 11/01/22 17:47 Review of Systems ROS Statement: Those systems with pertinent positive or pertinent negative responses have been documented in the HPI. ROS Other: All systems not noted in ROS Statement are negative. 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 History of Any Multi-Drug Resistant Organisms: None Reported Past Surgical History: Breast Surgery, Cholecystectomy, Hysterectomy Additional Past Surgical History / Comment(s): KIDNEY URETERS RE-ROUTING D/T FREQUENT UTIS YRS AGO. LUMPECTOMIES OF BREAST-BENIGN, sinus surgery Past Anesthesia/Blood Transfusion Reactions: No Reported Reaction Additional Past Anesthesia/Blood Transfusion Reaction / Comment(s): NEVER RECIEVED BLOOD PRODUCT. Past Psychological History: Anxiety, Depression, Panic Disorder Smoking Status: Current every day smoker Past Alcohol Use History: None Reported Past Drug Use History: None Reported - Past Family History Father Family Medical History: No Reported History Additional Family Medical History / Comment(s): FATHER IS LIVING AND IN HIS 70'S Mother Family Medical History: Cancer Additional Family Medical History / Comment(s): HX OF OVARIAN CA. Brother(s) Family Medical History: Cancer Additional Family Medical History / Comment(s): ESOPHAGUS CANCER General Exam General appearance: alert, in no apparent distress Head exam: Present: atraumatic, normocephalic, normal inspection Eye exam: Present: normal appearance, PERRL, EOMI. Absent: scleral icterus, conjunctival injection, periorbital swelling ENT exam: Present: normal exam, mucous membranes moist Neck exam: Present: normal inspection. Absent: tenderness, meningismus, lymphadenopathy Respiratory exam: Present: normal lung sounds bilaterally. Absent: respiratory distress, wheezes, rales, rhonchi, stridor Cardiovascular Exam: Present: regular rate, normal rhythm, normal heart sounds. Absent: systolic murmur, diastolic murmur, rubs, gallop, clicks GI/Abdominal exam: Present: soft, normal bowel sounds. Absent: distended, tenderness, guarding, rebound, rigid Extremities exam: Present: normal inspection, full ROM, normal capillary refill. Absent: tenderness, pedal edema, joint swelling, calf tenderness Back exam: Present: normal inspection Neurological exam: Present: alert, oriented X3, CN II-XII intact Psychiatric exam: Present: normal affect, normal mood Skin exam: Present: warm, dry, intact, normal color. Absent: rash Course Vital Signs 10/22/22 10/22/22 04:15 07:48 Temperature 98.2 F Pulse Rate 79 82 Respiratory 19 18 Rate Blood Pressure 136/84 146/72 O2 Sat by Pulse 98 82 L Oximetry EKG Findings - EKG Comments: EKG Findings:: EKG demonstrates normal sinus rhythm with a rate of 76. [place] interval 161. QRS 92. QTC of 422. No acute ST segment elevations or depressions Medical Decision Making - Medical Decision Making Was pt. sent in by a medical professional or institution (SHERMAN Guzmán, OPTOMETRY PROFESSOR, urgent care, hospital, or penitentiary...) When possible be specific @ -no Did you speak to anyone other than the patient for history (EMS, parent, family, police, friend...)? What history was obtained from this source @ -no Did you review nursing and triage notes (agree or disagree)? Why? @ -I reviewed and agree with nursing and triage notes Were old charts reviewed (outside hosp., previous admission, EMS record, old EKG, old radiological studies, urgent care reports/EKG's, penitentiary records)? Report findings @ -no old charts were reviewed Differential Diagnosis (chest pain, altered mental status, abdominal pain women, abdominal pain men, vaginal bleeding, weakness, fever, dyspnea, syncope, headache, dizziness, GI bleed, back pain, seizure, CVA, palpatations, mental health, musculoskeletal)? @ -vertigo, medication side effect, vestibular dysfunction EKG interpreted by me (3pts min.). @ -yes X-rays interpreted by me (1pt min.). @ -yes CT interpreted by me (1pt min.). @ -None done U/S interpreted by me (1pt. min.). @ -None done What testing was considered but not performed or refused? (CT, X-rays, U/S, labs)? Why? @ -None What meds were considered but not given or refused? Why? @ -None Did you discuss the management of the patient with other professionals (professionals i.e. SHERMAN Guzmán, OPTOMETRY PROFESSOR, lab, RT, psych nurse, social services assistant, flag signaler, teacher, parachute officer, cyanide case hardener)? Give summary @ -No Was smoking cessation discussed for >3mins.? @ -No Was critical care preformed (if so, how long)? @ -No Were there social determinants of health that impacted care today? How? (Homelessness, low income, unemployed, alcoholism, drug addiction, transportation, low edu. Level, literacy, decrease access to med. care, penitentiary, rehab)? @ -No Was there de-escalation of care discussed even if they declined (Discuss DNR or withdrawal of care, Hospice)? DNR status @ -no What co-morbidities impacted this encounter? (DM, HTN, Smoking, COPD, CAD, Cancer, CVA, ARF, Chemo, Hep., AIDS, mental health diagnosis, sleep apnea, morbid obesity)? @ -anxiety/depression Was patient admitted / discharged? Hospital course, mention meds given and route, prescriptions, significant lab abnormalities, going to OR and other pertinent info. @ -Upon arrival patient was placed into room 3. Thorough history and physical exam was performed. Patient given valium for vertigo and zofran for nausea. labs conducted. xray performed. recommended she follow up with her psychiatrist and inform them of the medication side effects and request treatment with new meds. Patient understood. instructed to return for new or worsening symptoms Undiagnosed new problem with uncertain prognosis? @ -yes Drug Therapy requiring intensive monitoring for toxicity (Heparin, Nitro, Insulin, Cardizem)? @ -No Were any procedures done? @ no Diagnosis/symptom? @ acute vertigo, medication side effect Acute, or Chronic, or Acute on Chronic? @ -acute Uncomplicated (without systemic symptoms) or Complicated (systemic symptoms)? @ -complicated Side effects of treatment? @ -No Exacerbation, Progression, or Severe Exacerbation? @ -No Poses a threat to life or bodily function? How? (Chest pain, [place], [place], pneumonia, PE, COPD, DKA, ARF, appy, cholecystitis, CVA, Diverticulitis, Homicidal, Suicidal, threat to staff... and all critical care pts) @ -No - Lab Data Result diagrams: 10/22/22 05:33 10/22/22 05:33 Lab Results 10/22/22 10/22/22 Range/Units 05:33 05:33 WBC 7.2 (3.8-10.6) k/uL RBC 5.39 (3.80-5.40) m/uL Hgb 17.4 H (11.4-16.0) gm/dL Hct 52.5 H (34.0-46.0) % MCV 97.3 (80.0-100.0) fL MCH 32.3 (25.0-35.0) pg MCHC 33.2 (31.0-37.0) g/dL RDW 14.0 (11.5-15.5) % Plt Count 350 (150-450) k/uL MPV 8.5 Neutrophils % 70 % Lymphocytes % 20 % Monocytes % 6 % Eosinophils % 2 % Basophils % 1 % Neutrophils # 5.0 (1.3-7.7) k/uL Lymphocytes # 1.5 (1.0-4.8) k/uL Monocytes # 0.4 (0-1.0) k/uL Eosinophils # 0.1 (0-0.7) k/uL Basophils # 0.0 (0-0.2) k/uL Sodium 139 (137-145) mmol/L Potassium 4.4 (3.5-5.1) mmol/L Chloride 104 (98-107) mmol/L Carbon Dioxide 26 (22-30) mmol/L Anion Gap 9 mmol/L BUN 10 (7-17) mg/dL Creatinine 0.72 (0.52-1.04) mg/dL Est GFR (CKD-EPI)AfAm >90 (>60 ml/min/1.73 sqM) Est GFR (CKD-EPI)NonAf 90 (>60 ml/min/1.73 sqM) Glucose 103 H (74-99) mg/dL Calcium 9.1 (8.4-10.2) mg/dL Magnesium 2.4 H (1.6-2.3) mg/dL Total Bilirubin 1.1 (0.2-1.3) mg/dL AST 33 (14-36) U/L ALT 29 (4-34) U/L Alkaline Phosphatase 78 (38-126) U/L Total Protein 7.7 (6.3-8.2) g/dL Albumin 4.4 (3.5-5.0) g/dL Lipase 59 (23-300) U/L TSH 3.010 (0.465-4.680) mIU/L Disposition Clinical Impression: Vertigo, Medication side effect Disposition: HOME SELF-CARE Condition: Stable Instructions (If sedation given, give patient instructions): Dizziness (ED) Additional Instructions: Please call your psychiatrist to speak with them about medication adjustments. Take the nausea medication as needed and return for any new or worsening symptoms Is patient prescribed a controlled substance at d/c from ED?: No Referrals: Unruly Madrid DO [Primary Care Provider] - 1-2 days Time of Disposition: 07:38
--- NOTE | 2022-10-22 06:53 | XR ---
EXAMINATION TYPE: XR KUB DATE OF EXAM: 10/22/2022 6:48 AM CLINICAL HISTORY: Abdominal pain TECHNIQUE: Two Upright KUB images of the abdomen are obtained. COMPARISON: CT abdomen November 22, 2014. FINDINGS: Gas is seen in nondistended stomach. Scattered gas is seen in non-distended small and large bowel loops. Levoconvex scoliosis centered in the mid lumbar spine is redemonstrated. Cholecystectom y clips are redemonstrated. No free air. Possible 4 to 5 mm lower pole left renal calculus at L3-L4 d isc space level. Lung bases are clear. IMPRESSION: Overall nonobstructive bowel gas pattern.
[2022-10-22] MEDS ORDERED: ONDANSETRON 4 MG ODT STARTER PACK 2 TAB BTL PO STA (07:37)
[2022-10-22 07:49] VITALS: BP 146/72; PULSE 82; RESP 18
== END 2022-10-22 07:48 | disposition home or self-care (01) ==
LOC: EC 04:08
DX: R42 Dizziness and giddiness (principal); T50.905A Adverse effect of unspecified drugs, medicaments and biological substances, initial encounter; F41.9 Anxiety disorder, unspecified; F32.A Depression, unspecified; E07.9 Disorder of thyroid, unspecified; F17.200 Nicotine dependence, unspecified, uncomplicated; Z79.890 Hormone replacement therapy; Z79.899 Other long term (current) drug therapy; Z88.0 Allergy status to penicillin; Z88.1 Allergy status to other antibiotic agents; Z88.8 Allergy status to other drugs, medicaments and biological substances; Z91.040 Latex allergy status; Z90.49 Acquired absence of other specified parts of digestive tract
CPT/HCPCS: 36415; 93005; 80053; 84443; 83690; 83735; 85025; 74018; 99284; 96374; 96375; J3360; J2405; S0119

== ENCOUNTER 2022-10-28 23:09 | Emergency (ER) | payer OTHER ==
[2022-10-28 23:14] VITALS: TEMP 97.4
[2022-10-28] MEDS ORDERED: SODIUM CHLORIDE 0.9% 500 ML 500 ML IV ONE (23:27)
[2022-10-28] MEDS ORDERED: DICYCLOMINE 20 MG TAB PO STA (23:27)
[2022-10-29 00:34] LABS: Basophils % (A) 0 %; Eosinophils # (A) 0.1 k/uL (0-0.7); Eosinophils % (A) 1 %; HCT 49.6 % (34.0-46.0); HGB 16.4 gm/dL (11.4-16.0); Lymphocytes # (A) 1.4 k/uL (1.0-4.8); Lymphocytes % (A) 17 %; MCH 32.1 pg (25.0-35.0); MCV 97.2 fL (80.0-100.0); Mean Platelet Volume 8.6; Monocytes # (A) 0.3 k/uL (0-1.0); Monocytes % (A) 4 %; Neutrophils # (A) 6.3 k/uL (1.3-7.7); Neutrophils % (A) 76 %; Platelet Count 356 k/uL (150-450); RBC 5.11 m/uL (3.80-5.40); RDW 13.9 % (11.5-15.5); WBC 8.4 k/uL (3.8-10.6)
[2022-10-29 00:35] LABS: ALT 18 U/L (4-34); AST 20 U/L (14-36); African American GFR (CKD) >90 (>60 ml/min/1.73 sqM); Albumin 3.9 g/dL (3.5-5.0); Alkaline Phosphatase 87 U/L (38-126); Amylase 47 U/L (30-110); Anion Gap 9 mmol/L; Blood Urea Nitrogen 9 mg/dL (7-17); Calcium 8.9 mg/dL (8.4-10.2); Carbon Dioxide 26 mmol/L (22-30); Chloride 104 mmol/L (98-107); Glucose 108 mg/dL (74-99); Lipase 51 U/L (23-300); Non-African American GFR(CKD) >90 (>60 ml/min/1.73 sqM); Potassium 3.9 mmol/L (3.5-5.1); Sodium 139 mmol/L (137-145); Total Bilirubin 0.8 mg/dL (0.2-1.3); Total Protein 6.9 g/dL (6.3-8.2)
[2022-10-29 01:13] LABS: Appearance,Urine Clear (Clear); Bilirubin,Urine Negative (Negative); Blood,Urine Negative (Negative); Color,Urine Yellow; Glucose,Urine (UA) Negative (Negative); Ketones,Urine Trace (Negative); Leukocyte Esterase,Urine Negative (Negative); Nitrite,Urine Negative (Negative); PH, Urine 5.5 (5.0-8.0); Protein,Urine Negative (Negative); Specific Gravity,Urine 1.007 (1.001-1.035); Urobilinogen,Urine <2.0 mg/dL (<2.0)
[2022-10-29] MEDS ORDERED: METOCLOPRAMIDE 5 MG/ML 2 ML VIAL IVP STA (01:49)
--- NOTE | 2022-10-29 01:50 | ED ---
General Adult HPI - General Chief complaint: Abdominal Pain Stated complaint: Abdominal Pain Time Seen by Provider: 10/28/22 23:15 Source: patient Mode of arrival: ambulatory Limitations: no limitations - History of Present Illness Initial comments: 62-year-old female with no significant past medical history presents the emergency department with a chief complaint of abdominal pain that started early this morning. She reports it is a constant, old ache. It is not worse or better if she eats anything. She denies any fever, chills, nausea, vomiting, chest pain, shortness of breath, dysuria, hematuria. She reports last bowel movement was earlier today normal for her. She reports that she took sucralfate with mild symptomatic relief. - Related Data Home Medications Medication Instructions Recorded Confirmed Levothyroxine Sodium [Synthroid] 50 mcg PO DAILY 06/14/22 09/18/22 Aspirin 81 mg PO DAILY 08/08/22 09/18/22 Cholecalciferol [Vitamin D3 (25 25 mcg PO DAILY 08/08/22 09/18/22 Mcg = 1000 Iu)] clonazePAM [KlonoPIN] 0.5 mg PO QID 08/08/22 09/18/22 Magnesium Malate 500 mg PO HS 08/10/22 09/18/22 Ascorbic Acid [Vitamin C] 500 mg PO DAILY 09/18/22 09/18/22 Desvenlafaxine Succinate [Pristiq] 25 mg PO DAILY@0800 09/18/22 09/18/22 Vitamin B Complex 1 cap PO DAILY 09/18/22 09/18/22 Previous Rx's Medication Instructions Recorded Ondansetron Odt [Zofran Odt] 4 mg PO Q8HR PRN #20 tab 10/22/22 Allergies Allergy/AdvReac Type Severity Reaction Status Date / Time latex Allergy Severe Anaphylaxis Verified 10/22/22 04:18 Penicillins AdvReac Severe Rash/Hives/Shortness Verified 10/22/22 04:18 of Breath prednisone AdvReac MAKES HER Verified 10/22/22 04:18 FEEL LIGHTHEADED Review of Systems ROS Statement: Those systems with pertinent positive or pertinent negative responses have been documented in the HPI. ROS Other: All systems not noted in ROS Statement are negative. 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 History of Any Multi-Drug Resistant Organisms: None Reported Past Surgical History: Breast Surgery, Cholecystectomy, Hysterectomy Additional Past Surgical History / Comment(s): KIDNEY URETERS RE-ROUTING D/T FREQUENT UTIS YRS AGO. LUMPECTOMIES OF BREAST-BENIGN, sinus surgery Past Anesthesia/Blood Transfusion Reactions: No Reported Reaction Additional Past Anesthesia/Blood Transfusion Reaction / Comment(s): NEVER RECIEVED BLOOD PRODUCT. Past Psychological History: Anxiety, Depression, Panic Disorder Smoking Status: Current every day smoker Past Alcohol Use History: None Reported Past Drug Use History: None Reported - Past Family History Father Family Medical History: No Reported History Additional Family Medical History / Comment(s): FATHER IS LIVING AND IN HIS 70'S Mother Family Medical History: Cancer Additional Family Medical History / Comment(s): HX OF OVARIAN CA. Brother(s) Family Medical History: Cancer Additional Family Medical History / Comment(s): ESOPHAGUS CANCER General Exam - General Exam Comments Initial Comments: General: Alert, in no acute distress Head: atraumatic normocephalic. Eyes PERRL, EOMI intact, mucous membranes moist Respiratory: Lungs clear to auscultation bilaterally Cardiovascular: Rate regular rate and rhythm Abdominal: Soft without guarding or rebound Extremities: Normal inspection with full range of motion and normal capillary refill Neuroogic: alert and oriented 3, CN II-XII intact, able to ambulate with steady gait Skin: warm dry and intact with normal color Limitations: no limitations Course Vital Signs 10/28/22 10/29/22 23:11 02:57 Temperature 97.4 F L Pulse Rate 95 54 L Respiratory 16 15 Rate Blood Pressure 133/93 121/75 O2 Sat by Pulse 97 93 L Oximetry - Reevaluation(s) Reevaluation #1: 10/29/22 02:03 Patient reevaluated. Patient reports no symptomatic relief status post Bentyl. Patient offered Protonix and Pepcid however she declined. Patient is requesting Reglan at this time. Medical Decision Making - Medical Decision Making Was pt. sent in by a medical professional or institution (, [place], [facility], urgent care, hospital, or snf...) When possible be specific @ -[No] Did you speak to anyone other than the patient for history (EMS, parent, family, police, friend...)? What history was obtained from this source @ -[No] Did you review nursing and triage notes (agree or disagree)? Why? @ -[I reviewed and agree with nursing and triage notes] Were old charts reviewed (outside hosp., previous admission, EMS record, old EKG, old radiological studies, urgent care reports/EKG's, snf records)? Report findings @ -[No old charts were reviewed] Differential Diagnosis (chest pain, altered mental status, abdominal pain women, abdominal pain men, vaginal bleeding, weakness, fever, dyspnea, syncope, headache, dizziness, GI bleed, back pain, seizure, CVA, palpatations, mental health, musculoskeletal)? @ -[not applicable] EKG interpreted by me (3pts min.). @ -[As above] X-rays interpreted by me (1pt min.). @ -[None done] CT interpreted by me (1pt min.). @ -[None done] U/S interpreted by me (1pt. min.). @ -[None done] What testing was considered but not performed or refused? (CT, X-rays, U/S, labs)? Why? @ -[None] What meds were considered but not given or refused? Why? @ -[None] Did you discuss the management of the patient with other professionals (professionals i.e. , PA, [employer], lab, RT, psych nurse, web content & social media manager, skip load driver, teacher, chief accounting officer, case sealer)? Give summary @ -[No] Was smoking cessation discussed for >3mins.? @ -[No] Was critical care preformed (if so, how long)? @ -[No] Were there social determinants of health that impacted care today? How? (Homelessness, low income, unemployed, alcoholism, drug addiction, transportation, low edu. Level, literacy, decrease access to med. care, [facility], rehab)? @ -[No] Was there de-escalation of care discussed even if they declined (Discuss DNR or withdrawal of care, Hospice)? DNR status @ -[No] What co-morbidities impacted this encounter? (DM, HTN, Smoking, COPD, CAD, Cancer, CVA, ARF, Chemo, Hep., AIDS, mental health diagnosis, sleep apnea, morbid obesity)? @ -[None] Was patient admitted / discharged? Hospital course, mention meds given and rout e, prescriptions, significant lab abnormalities, going to OR and other pertinent info. @ -Discharged. This is a 62 year-old female who presents the emergency department with abdominal pain. Patient had a thorough history and physical exam performed, physical exam reveals heart rate regular rate and rhythm, lungs clear to auscultation bilaterally abdomen is soft and non-tender. Patient able to ambulate with a steady gait. No neurological deficits are noted. patient had lab work and imaging performed which was essentially unremarkable. Patient given Toradol, reglan, bentyl, and 1L IV fluids with symptomatic relief. I discussed the results in detail with the patient verbalized understanding and all questions were addressed. Return precautions were discussed at length. Discharged in stable condition. Case discussed with Dr. Bell [facility] who agrees with plan of care Undiagnosed new problem with uncertain prognosis? @ -[No] Drug Therapy requiring intensive monitoring for toxicity (Heparin, Nitro, Insulin, Cardizem)? @ -[No] Were any procedures done? @ -[No] Diagnosis/symptom? @ -abdominal pain Acute, or Chronic, or Acute on Chronic? @ -acute Uncomplicated (without systemic symptoms) or Complicated (systemic symptoms)? @ -uncomplicated Side effects of treatment? @ -[No] Exacerbation, Progression, or Severe Exacerbation? @ -[No] Poses a threat to life or bodily function? How? (Chest pain, [place], [place], pneumonia, PE, COPD, DKA, ARF, appy, cholecystitis, CVA, Diverticulitis, Homicidal, Suicidal, threat to staff... and all critical care pts) @ -low likelihood ] - Lab Data Result diagrams: 10/29/22 00:01 10/29/22 00:01 Lab Results 10/29/22 10/29/22 10/29/22 Range/Units 00:01 00:01 00:29 WBC 8.4 (3.8-10.6) k/uL RBC 5.11 (3.80-5.40) m/uL Hgb 16.4 H (11.4-16.0) gm/dL Hct 49.6 H (34.0-46.0) % MCV 97.2 (80.0-100.0) fL MCH 32.1 (25.0-35.0) pg MCHC 33.0 (31.0-37.0) g/dL RDW 13.9 (11.5-15.5) % Plt Count 356 (150-450) k/uL MPV 8.6 Neutrophils % 76 % Lymphocytes % 17 % Monocytes % 4 % Eosinophils % 1 % Basophils % 0 % Neutrophils # 6.3 (1.3-7.7) k/uL Lymphocytes # 1.4 (1.0-4.8) k/uL Monocytes # 0.3 (0-1.0) k/uL Eosinophils # 0.1 (0-0.7) k/uL Basophils # 0.0 (0-0.2) k/uL Sodium 139 (137-145) mmol/L Potassium 3.9 (3.5-5.1) mmol/L Chloride 104 (98-107) mmol/L Carbon Dioxide 26 (22-30) mmol/L Anion Gap 9 mmol/L BUN 9 (7-17) mg/dL Creatinine 0.61 (0.52-1.04) mg/dL Est GFR (CKD-EPI)AfAm >90 (>60 ml/min/1.73 sqM) Est GFR (CKD-EPI)NonAf >90 (>60 ml/min/1.73 sqM) Glucose 108 H (74-99) mg/dL Calcium 8.9 (8.4-10.2) mg/dL Total Bilirubin 0.8 (0.2-1.3) mg/dL AST 20 (14-36) U/L ALT 18 (4-34) U/L Alkaline Phosphatase 87 (38-126) U/L Total Protein 6.9 (6.3-8.2) g/dL Albumin 3.9 (3.5-5.0) g/dL Amylase 47 (30-110) U/L Lipase 51 (23-300) U/L Urine Color Yellow Urine Appearance Clear (Clear) Urine pH 5.5 (5.0-8.0) Ur Specific [employer] 1.007 (1.001-1.035) Urine Protein Negative (Negative) Urine Glucose (UA) Negative (Negative) Urine Ketones Trace H (Negative) Urine Blood Negative (Negative) Urine Nitrite Negative (Negative) Urine Bilirubin Negative (Negative) Urine Urobilinogen <2.0 (<2.0) mg/dL Ur Leukocyte Esterase Negative (Negative) Disposition Clinical Impression: Abdominal pain Disposition: HOME SELF-CARE Condition: Stable Additional Instructions: Please return to the nearest emergency department if symptoms worsen or persist Is patient prescribed a controlled substance at d/c from ED?: No Referrals: Unruly Madrid DO [Primary Care Provider] - 1-2 days Aliya Correa MD [STAFF PHYSICIAN] - 1-2 days Time of Disposition: 01:50
[2022-10-29] MEDS ORDERED: FAMOTIDINE 20 MG TAB PO STA (02:50)
[2022-10-29 03:01] VITALS: BP 121/75; PULSE 54; RESP 15
== END 2022-10-29 03:01 | disposition home or self-care (01) ==
LOC: EC 23:09
DX: R10.9 Unspecified abdominal pain (principal); E07.9 Disorder of thyroid, unspecified; F41.9 Anxiety disorder, unspecified; F32.A Depression, unspecified; F17.200 Nicotine dependence, unspecified, uncomplicated; Z88.0 Allergy status to penicillin; Z91.040 Latex allergy status; Z88.8 Allergy status to other drugs, medicaments and biological substances; Z79.890 Hormone replacement therapy; Z79.82 Long term (current) use of aspirin; Z79.899 Other long term (current) drug therapy
CPT/HCPCS: 36415; 80053; 82150; 83690; 85025; 81003; 99284; 96374; 96361; J2765

== ENCOUNTER 2022-11-01 13:52 | Emergency (ER) | payer OTHER ==
--- NOTE | 2022-11-01 14:17 | ED ---
General Adult HPI - General Source: patient, family, RN notes reviewed Mode of arrival: ambulatory <Lola Espana - Last Filed: 11/01/22 14:17> <Bakari Mcfarlane - Last Filed: 11/02/22 00:01> - General Chief complaint: Psychiatric Symptoms Stated complaint: mental health Time Seen by Provider: 11/01/22 14:16 - History of Present Illness Initial comments: 62 year-old female presents to the emergency department with a chief complaint of increased depressive thoughts. (Lola Espana) Patient is a 62-year-old female presenting with chief complaint of depression. Patient has had multiple medication changes recently and states she is frustrated that she has not found a combination that works for her. She denies any suicidal or homicidal ideation. No visual or auditory hallucinations. She admits to intermittent headaches. No active headache at this time. No other symptoms at this time, including no chest pain, difficulty breathing, abdominal pain. (Bakari Mcfarlane) - Related Data Home Medications Medication Instructions Recorded Confirmed Levothyroxine Sodium [Synthroid] 50 mcg PO DAILY@0700 06/14/22 11/01/22 Cholecalciferol [Vitamin D3 (25 25 mcg PO DAILY@0800 08/08/22 11/01/22 Mcg = 1000 Iu)] Magnesium Malate 500 mg PO HS@2200 08/10/22 11/01/22 Ascorbic Acid [Vitamin C] 500 mg PO DAILY@0800 09/18/22 11/01/22 Desvenlafaxine Succinate [Pristiq] 25 mg PO DAILY@0800 09/18/22 11/01/22 Cyanocobalamin (Vitamin B-12) 1,000 mcg PO DAILY@0800 11/01/22 11/01/22 [Vitamin B-12] Nux Vomica 1 - 2 tab SUBLINGUAL Q2H PRN 11/01/22 11/01/22 clonazePAM [KlonoPIN] 0.5 mg PO QID@,,,11/01/22 11/01/22 Allergies Allergy/AdvReac Type Severity Reaction Status Date / Time latex Allergy Severe Anaphylaxis Verified 11/01/22 17:47 levofloxacin [From Levaquin] Allergy Unknown Verified 11/01/22 17:47 Penicillins AdvReac Severe Rash/Hives/Shortness Verified 11/01/22 17:47 of Breath buspirone [From BuSpar] AdvReac dizziness/n Verified 11/01/22 17:47 ausea escitalopram [From Lexapro] AdvReac heart Verified 11/01/22 17:47 racing prednisone AdvReac MAKES HER Verified 11/01/22 17:47 FEEL LIGHTHEADED vilazodone [From Viibryd] AdvReac lowered BP Verified 11/01/22 17:47 Review of Systems ROS Other: All systems not noted in ROS Statement are negative. <Lola Espana - Last Filed: 11/01/22 14:17> ROS Other: All systems not noted in ROS Statement are negative. <Bakari Mcfarlane - Last Filed: 11/02/22 00:01> ROS Statement: Those systems with pertinent positive or pertinent negative responses have been documented in the HPI. 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 History of Any Multi-Drug Resistant Organisms: None Reported Past Surgical History: Breast Surgery, Cholecystectomy, Hysterectomy Additional Past Surgical History / Comment(s): KIDNEY URETERS RE-ROUTING D/T FREQUENT UTIS YRS AGO. LUMPECTOMIES OF BREAST-BENIGN, sinus surgery Past Anesthesia/Blood Transfusion Reactions: No Reported Reaction Additional Past Anesthesia/Blood Transfusion Reaction / Comment(s): NEVER RECIEVED BLOOD PRODUCT. Past Psychological History: Anxiety, Depression, Panic Disorder Smoking Status: Current every day smoker Past Alcohol Use History: None Reported Past Drug Use History: None Reported - Past Family History Father Family Medical History: No Reported History Additional Family Medical History / Comment(s): FATHER IS LIVING AND IN HIS 70'S Mother Family Medical History: Cancer Additional Family Medical History / Comment(s): HX OF OVARIAN CA. Brother(s) Family Medical History: Cancer Additional Family Medical History / Comment(s): ESOPHAGUS CANCER <Lola Espana - Last Filed: 11/01/22 14:17> General Exam <Lola Espana - Last Filed: 11/01/22 14:17> Limitations: no limitations General appearance: alert, in no apparent distress Head exam: Present: atraumatic, normocephalic, normal inspection Eye exam: Present: normal appearance, PERRL, EOMI. Absent: scleral icterus, conjunctival injection, periorbital swelling Neck exam: Present: normal inspection, full ROM Respiratory exam: Present: normal lung sounds bilaterally. Absent: respiratory distress, wheezes, rales, rhonchi, stridor Cardiovascular Exam: Present: regular rate, normal rhythm, normal heart sounds. Absent: systolic murmur, diastolic murmur, rubs, gallop, clicks Neurological exam: Present: alert, oriented X3, CN II-XII intact Psychiatric exam: Present: normal affect, normal mood Skin exam: Present: warm, dry, intact, normal color. Absent: rash <Bakari Mcfarlane - Last Filed: 11/02/22 00:01> - General Exam Comments Initial Comments: Visual Physical Exam Vital signs reviewed General: Well-appearing, nontoxic, no acute distress. Patient is tearful and triage Head: Normocephalic, atraumatic Eyes: PERRLA, EOMI ENT: Airway patent Chest: Nonlabored breathing Skin: No visual rash, normal skin tone Neuro: Alert and oriented 3 Musculoskeletal: No gross abnormalities (Lola Espana) Course Vital Signs 11/01/22 11/01/22 14:12 20:07 Temperature 97.9 F 97.8 F Pulse Rate 99 70 Respiratory 18 16 Rate Blood Pressure 164/116 119/68 O2 Sat by Pulse 95 98 Oximetry Medical Decision Making - Lab Data Result diagrams: 11/01/22 17:24 11/01/22 17:24 <Bakari Mcfarlane - Last Filed: 11/02/22 00:01> - Medical Decision Making Was pt. sent in by a medical professional or institution (SHERMAN Guzmán, BANK RECONCILIATOR, urgent care, hospital, or prison...) When possible be specific @ -No Did you speak to anyone other than the patient for history (EMS, parent, family, police, friend...)? What history was obtained from this source @ -No Did you review nursing and triage notes (agree or disagree)? Why? @ -I reviewed and agree with nursing and triage notes Were old charts reviewed (outside hosp., previous admission, EMS record, old EKG, old radiological studies, urgent care reports/EKG's, prison records)? Report findings @ -No old charts were reviewed Differential Diagnosis (chest pain, altered mental status, abdominal pain women, abdominal pain men, vaginal bleeding, weakness, fever, dyspnea, syncope, headache, dizziness, GI bleed, back pain, seizure, CVA, palpatations, mental health, musculoskeletal)? @ -Differential Mental Health Depression, anxiety, bipolar, psychosis, schizophrenia, borderline personality, situational depression, adjustment disorder, behavioral disorder, brain tumor, malingering, substance abuse, encephalopathy, medication reaction, dementia, hypothyroidism, degenerative neurologic disorder, lupus.... This is not meant to be all-inclusive list EKG interpreted by me (3pts min.). @ -As above X-rays interpreted by me (1pt min.). @ -None done CT interpreted by me (1pt min.). @ -None done U/S interpreted by me (1pt. min.). @ -None done What testing was considered but not performed or refused? (CT, X-rays, U/S, labs)? Why? @ -None What meds were considered but not given or refused? Why? @ -None Did you discuss the management of the patient with other professionals (professionals i.e. , PA, BANK RECONCILIATOR, lab, RT, psych nurse, social science instructor, bus and trolley inspecting dispatcher, teacher, preventive medicine officer, comp field case manager)? Give summary @ -No Was smoking cessation discussed for >3mins.? @ -No Was critical care preformed (if so, how long)? @ -No Were there social determinants of health that impacted care today? How? (Homelessness, low income, unemployed, alcoholism, drug addiction, transportation, low edu. Level, literacy, decrease access to med. care, halfway, rehab)? @ -No Was there de-escalation of care discussed even if they declined (Discuss DNR or withdrawal of care, Hospice)? DNR status @ -No What co-morbidities impacted this encounter? (DM, HTN, Smoking, COPD, CAD, Cancer, CVA, ARF, Chemo, Hep., AIDS, mental health diagnosis, sleep apnea, morbid obesity)? @ -None Was patient admitted / discharged? Hospital course, mention meds given and route, prescriptions, significant lab abnormalities, going to OR and other pertinent info. @ -Patient is a 62-year-old female presenting with chief complaint of depression. She is currently been undergoing many medication changes to try to treat her depression. She is frustrated that things are not improving at this time. No suicidal or homicidal ideation. Physical examination is unremarkable. Lab work shows no acute process. Patient is evaluated by her emergency psychiatric services, they determined that she is suitable for outpatient fo llow-up. Patient will be discharged home and instructed to follow up with [facility]. Follow-up with PCP. Report back to ER with any new or worsening symptoms. Discussed return parameters and answered all questions. Patient conveyed verbal understanding and agreed to the plan. I discussed this case in detail with my attending Dr. Vazquez Undiagnosed new problem with uncertain prognosis? @ -No Drug Therapy requiring intensive monitoring for toxicity (Heparin, Nitro, Insulin, Cardizem)? @ -No Were any procedures done? @ -No Diagnosis/symptom? @ -Depression Acute, or Chronic, or Acute on Chronic? @ -Acute on chronic Uncomplicated (without systemic symptoms) or Complicated (systemic symptoms)? @ -Uncomplicated Side effects of treatment? @ -No Exacerbation, Progression, or Severe Exacerbation? @ -No Poses a threat to life or bodily function? How? (Chest pain, [place], [place], pneumonia, PE, COPD, DKA, ARF, appy, cholecystitis, CVA, Diverticulitis, Homicidal, Suicidal, threat to staff... and all critical care pts) @ -No (Bakari Mcfarlane) - Lab Data Lab Results 11/01/22 11/01/22 11/01/22 Range/Units 17:24 17:24 17:24 WBC 7.8 (3.8-10.6) k/uL RBC 4.96 (3.80-5.40) m/uL Hgb 16.5 H (11.4-16.0) gm/dL Hct 49.0 H (34.0-46.0) % MCV 98.9 (80.0-100.0) fL MCH 33.2 (25.0-35.0) pg MCHC 33.6 (31.0-37.0) g/dL RDW 13.5 (11.5-15.5) % Plt Count 367 (150-450) k/uL MPV 8.3 Neutrophils % 69 % Lymphocytes % 22 % Monocytes % 5 % Eosinophils % 2 % Basophils % 1 % Neutrophils # 5.4 (1.3-7.7) k/uL Lymphocytes # 1.7 (1.0-4.8) k/uL Monocytes # 0.4 (0-1.0) k/uL Eosinophils # 0.1 (0-0.7) k/uL Basophils # 0.1 (0-0.2) k/uL Sodium 138 (137-145) mmol/L Potassium 3.8 (3.5-5.1) mmol/L Chloride 104 (98-107) mmol/L Carbon Dioxide 23 (22-30) mmol/L Anion Gap 11 mmol/L BUN 8 (7-17) mg/dL Creatinine 0.64 (0.52-1.04) mg/dL Est GFR (CKD-EPI)AfAm >90 (>60 ml/min/1.73 sqM) Est GFR (CKD-EPI)NonAf >90 (>60 ml/min/1.73 sqM) Glucose 97 (74-99) mg/dL Calcium 8.7 (8.4-10.2) mg/dL Salicylates <1.0 mg/dL Acetaminophen <10.0 ug/mL Coronavirus (PCR) Not Detected (Not Detectd) Disposition <Lola Espana - Last Filed: 11/01/22 14:17> Is patient prescribed a controlled substance at d/c from ED?: No Time of Disposition: 20:00 <Bakari Mcfarlane - Last Filed: 11/02/22 00:01> Clinical Impression: Generalized anxiety disorder, Depression Disposition: HOME SELF-CARE Condition: Good Instructions (If sedation given, give patient instructions): Depression (ED), Anxiety (ED), Suicide Prevention (ED) Additional Instructions: Follow-up with PCP. Report back to ER with any new or worsening symptoms. Follow safety plan as developed here in the ER. Referrals: Unruly Madrid DO [Primary Care Provider] - 1-2 days
[2022-11-01 17:47] LABS: Basophils # (A) 0.1 k/uL (0-0.2); Basophils % (A) 1 %; Eosinophils # (A) 0.1 k/uL (0-0.7); Eosinophils % (A) 2 %; HGB 16.5 gm/dL (11.4-16.0); Lymphocytes # (A) 1.7 k/uL (1.0-4.8); Lymphocytes % (A) 22 %; MCH 33.2 pg (25.0-35.0); MCHC 33.6 g/dL (31.0-37.0); MCV 98.9 fL (80.0-100.0); Mean Platelet Volume 8.3; Monocytes # (A) 0.4 k/uL (0-1.0); Monocytes % (A) 5 %; Neutrophils # (A) 5.4 k/uL (1.3-7.7); Neutrophils % (A) 69 %; Platelet Count 367 k/uL (150-450); RBC 4.96 m/uL (3.80-5.40); RDW 13.5 % (11.5-15.5); WBC 7.8 k/uL (3.8-10.6)
[2022-11-01 18:01] LABS: Acetaminophen <10.0 ug/mL; African American GFR (CKD) >90 (>60 ml/min/1.73 sqM); Anion Gap 11 mmol/L; Blood Urea Nitrogen 8 mg/dL (7-17); Calcium 8.7 mg/dL (8.4-10.2); Carbon Dioxide 23 mmol/L (22-30); Chloride 104 mmol/L (98-107); Glucose 97 mg/dL (74-99); Non-African American GFR(CKD) >90 (>60 ml/min/1.73 sqM); Potassium 3.8 mmol/L (3.5-5.1); Salicylate <1.0 mg/dL; Sodium 138 mmol/L (137-145)
[2022-11-01 20:10] VITALS: BP 119/68; PULSE 70; RESP 16; TEMP 97.8
== END 2022-11-01 20:12 | disposition home or self-care (01) ==
LOC: EC 13:52
DX: F41.9 Anxiety disorder, unspecified (principal); F32.A Depression, unspecified; E07.9 Disorder of thyroid, unspecified; F17.200 Nicotine dependence, unspecified, uncomplicated; Z79.890 Hormone replacement therapy; Z91.040 Latex allergy status; Z88.0 Allergy status to penicillin; Z88.8 Allergy status to other drugs, medicaments and biological substances; Z20.822 Contact with and (suspected) exposure to COVID-19
CPT/HCPCS: 36415; 80048; 80143; 80179; 82075; 85025; 87635; 99285

== ENCOUNTER 2022-11-03 14:36 | Inpatient (IN) | payer OTHER ==
--- NOTE | 2022-11-03 16:04 | ED ---
Psych HPI - General Chief Complaint: Psychiatric Symptoms Stated Complaint: MENTAL HEALTH Time Seen by Provider: 11/03/22 15:16 Source: patient, family, RN notes reviewed, old records reviewed Mode of arrival: ambulatory - History of Present Illness Initial Comments: This is a 62-year-old female DF for evaluation of psychiatric illness. Patient presents todayfor depression with insomnia and having suicidal thoughts persistent. Worsen prior. No drugs or alcohol. Patient is having concerns about the medication she is currently taking. Causing her symptoms are making him worse. MD Complaint: suicidal ideation, feels depressed, other (History of psychiatric illness) -: unknown Associated Psychiatric Symptoms: depression, suicidal ideation, racing thoughts History of same: Yes Quality: constant, getting worse Improves With: none Worsens With: medication Context: significant life stressor Associated Symptoms: denies other symptoms Treatments Prior to Arrival: placed on mental health hold - Related Data Home Medications Medication Instructions Recorded Confirmed Levothyroxine Sodium [Synthroid] 50 mcg PO DAILY@0700 06/14/22 11/03/22 Cholecalciferol [Vitamin D3 (25 25 mcg PO DAILY@0800 08/08/22 11/03/22 Mcg = 1000 Iu)] Magnesium Malate 500 mg PO HS@2200 08/10/22 11/03/22 Ascorbic Acid [Vitamin C] 500 mg PO DAILY@0800 09/18/22 11/03/22 Desvenlafaxine Succinate [Pristiq] 25 mg PO DAILY@0800 09/18/22 11/03/22 Cyanocobalamin (Vitamin B-12) 1,000 mcg PO DAILY@0800 11/01/22 11/03/22 [Vitamin B-12] Nux Vomica 1 - 2 tab SUBLINGUAL Q2H PRN 11/01/22 11/03/22 clonazePAM [KlonoPIN] 0.5 mg PO QID@09,14,19,11/01/22 11/03/22 Allergies Allergy/AdvReac Type Severity Reaction Status Date / Time latex Allergy Severe Anaphylaxis Verified 11/03/22 16:46 levofloxacin [From Levaquin] Allergy Unknown Verified 11/03/22 16:46 Penicillins AdvReac Severe Rash/Hives/Shortness Verified 11/03/22 16:46 of Breath buspirone [From BuSpar] AdvReac dizziness/n Verified 11/03/22 16:46 ausea escitalopram [From Lexapro] AdvReac heart Verified 11/03/22 16:46 racing prednisone AdvReac MAKES HER Verified 11/03/22 16:46 FEEL LIGHTHEADED vilazodone [From Viibryd] AdvReac lowered BP Verified 11/03/22 16:46 Review of Systems ROS Statement: Those systems with pertinent positive or pertinent negative responses have been documented in the HPI. ROS Other: All systems not noted in ROS Statement are negative. 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 History of Any Multi-Drug Resistant Organisms: None Reported Past Surgical History: Breast Surgery, Cholecystectomy, Hysterectomy Additional Past Surgical History / Comment(s): KIDNEY URETERS RE-ROUTING D/T FREQUENT UTIS YRS AGO. LUMPECTOMIES OF BREAST-BENIGN, sinus surgery Past Anesthesia/Blood Transfusion Reactions: No Reported Reaction Additional Past Anesthesia/Blood Transfusion Reaction / Comment(s): NEVER RECIEVED BLOOD PRODUCT. Past Psychological History: Anxiety, Depression, Panic Disorder Smoking Status: Current every day smoker Past Alcohol Use History: None Reported Past Drug Use History: None Reported - Past Family History Father Family Medical History: No Reported History Additional Family Medical History / Comment(s): FATHER IS LIVING AND IN HIS 70'S Mother Family Medical History: Cancer Additional Family Medical History / Comment(s): HX OF OVARIAN CA. Brother(s) Family Medical History: Cancer Additional Family Medical History / Comment(s): ESOPHAGUS CANCER General Exam Limitations: no limitations General appearance: alert, in no apparent distress Head exam: Present: atraumatic, normocephalic, normal inspection Eye exam: Present: normal appearance, PERRL, EOMI. Absent: scleral icterus, conjunctival injection, periorbital swelling ENT exam: Present: normal exam, mucous membranes moist Neck exam: Present: normal inspection. Absent: tenderness, meningismus, lymphadenopathy Respiratory exam: Present: normal lung sounds bilaterally. Absent: respiratory distress, wheezes, rales, rhonchi, stridor Cardiovascular Exam: Present: regular rate, normal rhythm, normal heart sounds. Absent: systolic murmur, diastolic murmur, rubs, gallop, clicks GI/Abdominal exam: Present: soft, normal bowel sounds. Absent: distended, tenderness, guarding, rebound, rigid Extremities exam: Present: normal inspection, full ROM, normal capillary refill. Absent: tenderness, pedal edema, joint swelling, calf tenderness Back exam: Present: normal inspection Neurological exam: Present: alert, oriented X3, CN II-XII intact Psychiatric exam: Present: normal affect, normal mood Skin exam: Present: warm, dry, intact, normal color. Absent: rash Course Vital Signs 11/03/22 14:52 Temperature 98.2 F Pulse Rate 83 Respiratory 18 Rate Blood Pressure 128/75 O2 Sat by Pulse 94 L Oximetry - Reevaluation(s) Reevaluation #1: 11/03/22 16:04 Medical records reviewed 11/03/22 16:04 Medical clear for psychiatric evaluation Medical Decision Making - Medical Decision Making 62 female to the emergency department for evaluation patient presents today for evaluation regards to psychiatric illness depression suicidal thoughts patient will be admitted for psychiatric evaluation and treatment Disposition Clinical Impression: Cholecystitis, Vertigo, Anxiety, Depression, Suicidal ideation Disposition: TRANSFER TO PSYCH HOSP/UNIT Condition: Fair Is patient prescribed a controlled substance at d/c from ED?: No Referrals: Unruly Madrid DO [Primary Care Provider] - 1-2 days
[2022-11-03] MEDS ORDERED: clonazePAM 0.5 MG TAB PO ONE (18:45)
[2022-11-03] MEDS ORDERED: LORazepam 1 MG TAB PO PRN (21:03)
[2022-11-03] MEDS ORDERED: MAGNESIUM HYDROXIDE 2,400 MG/10 ML CUP PO PRN (21:03)
[2022-11-03] MEDS ORDERED: ACETAMINOPHEN TAB 325 MG TAB PO PRN (21:03)
[2022-11-03] MEDS ORDERED: LORazepam 2 MG/ML INJ IM PRN (21:08)
[2022-11-03] MEDS: clonazePAM 0.5 MG TAB PO SCH (22:51)
--- NOTE | 2022-11-04 00:29 | P.PN ---
Progress Note - Text Progress Note Date: 11/04/22 Attempted to see the patient in the mental health unit. The patient refused to be seen or be evaluated. Will attempt again tomorrow
[2022-11-04] MEDS ORDERED: Desvenlafaxine Succinate [Pristiq] 25 MG Tab.Er.24h PO SCH (08:00)
[2022-11-04] MEDS: LEVOTHYROXINE 50 MCG TAB PO SCH (08:13)
[2022-11-04] MEDS: NICOTINE 7MG/24HR PATCH TRANSDERM SCH (08:13)
[2022-11-04] MEDS: clonazePAM 0.5 MG TAB PO SCH ×4 (08:13→22:21)
[2022-11-04] MEDS: CHOLECALCIFEROL 25 MCG (1000 IU) TABLET PO SCH (08:14)
[2022-11-04] MEDS: CYANOCOBALAMIN 500 MCG TAB PO SCH (08:14)
[2022-11-04] MEDS: ASCORBIC ACID 500 MG TAB PO SCH (08:16)
[2022-11-04 11:57] LABS: ALT 15 U/L (4-34); AST 17 U/L (14-36); African American GFR (CKD) >90 (>60 ml/min/1.73 sqM); Albumin 3.8 g/dL (3.5-5.0); Alkaline Phosphatase 73 U/L (38-126); Anion Gap 8 mmol/L; Blood Urea Nitrogen 11 mg/dL (7-17); Calcium 9.1 mg/dL (8.4-10.2); Carbon Dioxide 27 mmol/L (22-30); Chloride 105 mmol/L (98-107); Glucose 99 mg/dL (74-99); Non-African American GFR(CKD) 84 (>60 ml/min/1.73 sqM); Potassium 4.6 mmol/L (3.5-5.1); Sodium 140 mmol/L (137-145); Total Bilirubin 0.7 mg/dL (0.2-1.3); Total Protein 6.6 g/dL (6.3-8.2)
[2022-11-04 12:59] LABS: Basophils % (A) 1 %; Eosinophils # (A) 0.1 k/uL (0-0.7); Eosinophils % (A) 1 %; HCT 48.5 % (34.0-46.0); HGB 15.6 gm/dL (11.4-16.0); Lymphocytes # (A) 1.3 k/uL (1.0-4.8); Lymphocytes % (A) 19 %; MCH 31.9 pg (25.0-35.0); MCHC 32.1 g/dL (31.0-37.0); MCV 99.2 fL (80.0-100.0); Mean Platelet Volume 9.1; Monocytes # (A) 0.3 k/uL (0-1.0); Monocytes % (A) 5 %; Neutrophils # (A) 4.9 k/uL (1.3-7.7); Neutrophils % (A) 74 %; Platelet Count 353 k/uL (150-450); RBC 4.88 m/uL (3.80-5.40); WBC 6.7 k/uL (3.8-10.6)
--- NOTE | 2022-11-04 18:32 | P.HP ---
Psychiatric H&P - . H&P Date: 11/04/22 History & Physical: IDENTIFYING DATA: Patient is a , employed, 62-year-old female who was admitted for suicidal ideation without a specific plan. HPI: Patient presented to the hospital on 11/03/22, and per EPS assessment, "pt came in complaining of suicidal ideation without a plan. She states she has been having her medications changed for the last several months and she has not felt like herself. She cries all the time, is starting to not leave her home out of fear of something happening to her once she leaves. She is having panic attacks and states she just wants to go to sleep and not wake up. Her sister and her children are worried about her. Her is with her and states they do not feel she is safe to be by herself. Her sister is flying in from [place] to support her. She just wants to feel like herself again." On my assessment, she reports anxiety, depression, suicidal thoughts with no specific plan. She reports she has been having hot flashes for a long time at night since she started Prestiq. She last felt normal on June 24, 2022. She reports she had started having thoughts of suicide in July 2022. She reports anxiety, foggy, nervous, hot flashes, heart racing at times, legs would go cold. She reports her sleep is fragmented. Patient denies any suicidal or homicidal ideation, intent or plan. At this time patient denies any auditory or visual hallucinations. Patient denies any flight of ideas racing thoughts and increased in goal directed behavior. Patient denies drug or alcohol use. She does smokes 1/2-1ppd of tobacco use. She is going to therapy to work on her life stressors. PAST PSYCHIATRIC HISTORY: Patient states that she has been to see diagnosed with anxiety and depression 34 years ago, along with agoraphobia. She was tried on Paxil, MAOIs, She has been taking Klonopin 2 mg for 34 years. She was started on Prestiq 25 mg daily recently. She was tried on Lexapro (heart racing), Viibryd (low blood pressure), so she went back on Prestiq and Buspar (dizziness). She has also tried Zoloft, MAOIs in the past. Previous psychiatric hospitalizations: [facility] 08/2022 Psychiatric outpatient follow-up: [facility] psychiatry Patient denies any history of suicide attempts in the past. 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 History of Any Multi-Drug Resistant Organisms: None Reported Past Surgical History: Breast Surgery, Cholecystectomy, Hysterectomy Additional Past Surgical History / Comment(s): KIDNEY URETERS RE-ROUTING D/T FREQUENT UTIS YRS AGO. LUMPECTOMIES OF BREAST-BENIGN, sinus surgery Past Anesthesia/Blood Transfusion Reactions: No Reported Reaction Additional Past Anesthesia/Blood Transfusion Reaction / Comm: NEVER RECIEVED BLOOD PRODUCT. Past Psychological History: Anxiety, Depression, Panic Disorder Smoking Status: Current every day smoker Past Alcohol Use History: None Reported Additional Past Alcohol Use History / Comment(s): started smoking at age 18, 0.5-1ppd Past Drug Use History: None Reported ALLERGIES: as per EMR CHEMICAL DEPENDENCY HISTORY: as per HPI FAMILY PSYCHIATRIC/SUBSTANCE USE HISTORY: Patient reports 1/2 - 1 PPD of tobacco use. She reports no significant alcohol, marijuana, or illicit drug use. SOCIAL HISTORY: Patient was born and raised in [place]. She is currently on her fifth marriage and has been with her current for the past 17 years. She her first twice and he is the father of 3 of her adult children. She currently lives with her . She lost her job of 30 years during COVID. They have had a lot of financial stress. 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 She denies any legal issues or concerns. MENTAL STATUS EXAM: General Appearance: Patient appears to be stated age is alert. Patient appears to have hygiene and grooming. Behavior: Patient is seated without any agitated behavior. Speech: Patient's speech is fluent and non-pressured. Mood/Affect: Patient reports their mood is anxious, affect is congruent and constricted. Suicidality/Homicidality: Patient denies having any homicidal ideation intent or plan. Denies any suicidal ideation, intent or plan. Perceptions: Patient denies any visual hallucinations and denies any auditory hallucinations. Though content/process: There is no evidence of any delusional thought content and thought process is linear and goal-directed. Memory and concentration: AOX3, grossly intact for the purposes of this session. Can spell "WORLD" backwards Judgment and insight: poor STRENGTHS/WEAKNESSES: Strength is that the patient has faith beliefs against suicide, has never attempted suicide. Weakness is unemployed. INTELLECT: Average IMPRESSIONS: Unspecified depressive disorder Generalized anxiety disorder with panic attacks Rule out panic disorder with agoraphobia Tobacco use disorder PLAN: -Patient is admitted under voluntary status to MHU for stabilization of psychiatric symptoms and safety. Patient has signed adult voluntary form and medication consent and is placed in patient's chart. -Medications: Start Gabapentin 100 mg QHS for anxiety. Start Remeron 7.5 mg QHS for depression/anxiety/sleep. Discontinue Prestiq 25 mg daily for anxiety. Continue Klonopin 0.5 mg QID for anxiety. -Ativan and Haldol PRN for agitation/aggression -Patient was informed of the risks, benefits and side effects of the medication and patient verbally consented to taking the medications. Patient signed med consent form and was placed in chart. -Internal Medicine consult to perform medical evaluation and physical. -NRT - nicotine patch -SW on board for discharge planning. Encourage patient to participate in groups to work on coping skills. Allergies Allergy/AdvReac Type Severity Reaction Status Date / Time latex Allergy Severe Anaphylaxis Verified 11/03/22 16:46 levofloxacin [From Levaquin] Allergy Unknown Verified 11/03/22 16:46 Penicillins AdvReac Severe Rash/Hives/Shortness Verified 11/03/22 16:46 of Breath buspirone [From BuSpar] AdvReac dizziness/n Verified 11/03/22 16:46 ausea escitalopram [From Lexapro] AdvReac heart Verified 11/03/22 16:46 racing prednisone AdvReac MAKES HER Verified 11/03/22 16:46 FEEL LIGHTHEADED vilazodone [From Viibryd] AdvReac lowered BP Verified 11/03/22 16:46 Vital Signs Temp 98.1 F 11/04/22 02:54 Pulse 85 11/04/22 02:54 Resp 18 11/04/22 02:54 BP 121/68 11/04/22 02:54 Pulse Ox 98 11/04/22 02:54 FiO2 Intake & Output 11/03/22 11/04/22 11/04/22 18:59 06:59 18:59 Weight 72.575 kg 71.259 kg 71.6 kg Laboratory Last Values WBC 6.7 k/uL (3.8-10.6) 11/04/22 11:16 RBC 4.88 m/uL (3.80-5.40) 11/04/22 11:16 Hgb 15.6 gm/dL (11.4-16.0) 11/04/22 11:16 Hct 48.5 % (34.0-46.0) H 11/04/22 11:16 MCV 99.2 fL (80.0-100.0) 11/04/22 11:16 MCH 31.9 pg (25.0-35.0) 11/04/22 11:16 MCHC 32.1 g/dL (31.0-37.0) 11/04/22 11:16 RDW 14.0 % (11.5-15.5) 11/04/22 11:16 Plt Count 353 k/uL (150-450) 11/04/22 11:16 MPV 9.1 11/04/22 11:16 Neutrophils % 74 % 11/04/22 11:16 Lymphocytes % 19 % 11/04/22 11:16 Monocytes % 5 % 11/04/22 11:16 Eosinophils % 1 % 11/04/22 11:16 Basophils % 1 % 11/04/22 11:16 Neutrophils # 4.9 k/uL (1.3-7.7) 11/04/22 11:16 Lymphocytes # 1.3 k/uL (1.0-4.8) 11/04/22 11:16 Monocytes # 0.3 k/uL (0-1.0) 11/04/22 11:16 Eosinophils # 0.1 k/uL (0-0.7) 11/04/22 11:16 Basophils # 0.0 k/uL (0-0.2) 11/04/22 11:16 Sodium 140 mmol/L (137-145) 11/04/22 11:16 Potassium 4.6 mmol/L (3.5-5.1) 11/04/22 11:16 Chloride 105 mmol/L (98-107) 11/04/22 11:16 Carbon Dioxide 27 mmol/L (22-30) 11/04/22 11:16 Anion Gap 8 mmol/L 11/04/22 11:16 BUN 11 mg/dL (7-17) 11/04/22 11:16 Creatinine 0.76 mg/dL (0.52-1.04) 11/04/22 11:16 Est GFR (CKD-EPI)AfAm >90 (>60 ml/min/1.73 sqM) 11/04/22 11:16 Est GFR (CKD-EPI)NonAf 84 (>60 ml/min/1.73 sqM) 11/04/22 11:16 Glucose 99 mg/dL (74-99) 11/04/22 11:16 Calcium 9.1 mg/dL (8.4-10.2) 11/04/22 11:16 Total Bilirubin 0.7 mg/dL (0.2-1.3) 11/04/22 11:16 AST 17 U/L (14-36) 11/04/22 11:16 ALT 15 U/L (4-34) 11/04/22 11:16 Alkaline Phosphatase 73 U/L (38-126) 11/04/22 11:16 Total Protein 6.6 g/dL (6.3-8.2) 11/04/22 11:16 Albumin 3.8 g/dL (3.5-5.0) 11/04/22 11:16 TSH 1.830 mIU/L (0.465-4.680) 11/04/22 11:16 Coronavirus (PCR) Not Detected (Not Detectd) 11/03/22 21:34 11/04/22 16:42 11/04/22 17:13 11/04/22 17:23 11/04/22 17:25 11/04/22 18:11 11/04/22 18:26
[2022-11-04] MEDS ORDERED: GABAPENTIN 100 MG CAP PO SCH (21:00)
[2022-11-04 21:03] LABS: LDL Cholesterol,Calculated 107.7 mg/dL (0.0-131.0)
[2022-11-04] MEDS: MIRTAZAPINE 15 MG TAB PO SCH (22:21)
--- NOTE | 2022-11-05 04:40 | P.CONS ---
History of Present Illness - Reason for Consult Consult date: 11/05/22 - History of Present Illness The patient is a 62-year-old female with a PMH of depression and anxiety who presents to the emergency room with complaint of worsening depression with suicidal ideation. The patient was admitted to the mental health unit where she was seen and evaluated accompanied by the mental health unit RN. The patient reports that she's been experiencing intermittent abdominal discomfort over the past several months, for which she was evaluated by refrigerated cargo clerk as an outpatient. She denied any active complaints at the time of interview. She denied experiencing chest discomfort or shortness of breath, fever, chills, cough, nausea, or vomiting. Review of systems: Pertinent positives and negatives as discussed in HPI, a complete review of systems was performed and all other systems are negative. Physical examination: General: non toxic, no distress, appears at stated age, overweight Derm: no unusual rashes/lesions, no unusual ecchymoses, warm, dry Head: atraumatic, normocephalic, symmetric Eyes: EOMI, no lid lag, anicteric sclera ENT: Nose and ears atraumatic, no thrush, no pharyngeal erythema Neck: trachea midline, supple Mouth: no lip lesion, mucus membranes moist Cardiovascular: S1S2 reg, no murmur, no edema Lungs: CTA bilateral, no rhonchi, no rales , no accessory muscle use Abdominal: soft, nontender to palpation, no guarding Ext: no gross muscle atrophy, no contractures, Neuro: No gross focal neuro deficits noted Psych: Alert, oriented, appropriate affect Assessment: Depression, suicidal ideation with anxiety Plan: Defer management to primary psychiatry service Thank you for allowing us to participate in the care of this patient. We will follow peripherally. Do not hesitate to contact us with questions. Someone can be reached from the [facility] hospitalist group at all hours of the day at [phone]. 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 History of Any Multi-Drug Resistant Organisms: None Reported Past Surgical History: Breast Surgery, Cholecystectomy, Hysterectomy Additional Past Surgical History / Comment(s): KIDNEY URETERS RE-ROUTING D/T FREQUENT UTIS YRS AGO. LUMPECTOMIES OF BREAST-BENIGN, sinus surgery Past Anesthesia/Blood Transfusion Reactions: No Reported Reaction Additional Past Anesthesia/Blood Transfusion Reaction / Comm: NEVER RECIEVED BLOOD PRODUCT. Past Psychological History: Anxiety, Depression, Panic Disorder Additional Psychological History / Comment(s): SHE FEELS SHE IS WELL MANAGED. PT LIVE WITH AND IS INDEPENDENT. Smoking Status: Current every day smoker Past Alcohol Use History: None Reported Additional Past Alcohol Use History / Comment(s): started smoking at age 18, 0.5-1ppd Past Drug Use History: None Reported - Past Family History Father Family Medical History: No Reported History Additional Family Medical History / Comment(s): FATHER IS LIVING AND IN HIS 70'S Mother Family Medical History: Cancer Additional Family Medical History / Comment(s): HX OF OVARIAN CA. Brother(s) Family Medical History: Cancer Additional Family Medical History / Comment(s): ESOPHAGUS CANCER Medications and Allergies Home Medications Medication Instructions Recorded Confirmed Type Levothyroxine Sodium [Synthroid] 50 mcg PO DAILY@0700 06/14/22 11/03/22 History Cholecalciferol [Vitamin D3 (25 25 mcg PO DAILY@0800 08/08/22 11/03/22 History Mcg = 1000 Iu)] Magnesium Malate 500 mg PO HS@2200 08/10/22 11/03/22 History Ascorbic Acid [Vitamin C] 500 mg PO DAILY@0800 09/18/22 11/03/22 History Desvenlafaxine Succinate [Pristiq] 25 mg PO DAILY@0800 09/18/22 11/03/22 History Cyanocobalamin (Vitamin B-12) 1,000 mcg PO DAILY@0800 11/01/22 11/03/22 History [Vitamin B-12] Nux Vomica 1 - 2 tab SUBLINGUAL Q2H PRN 11/01/22 11/03/22 History clonazePAM [KlonoPIN] 0.5 mg PO QID@09,14,,11/01/22 11/03/22 History Allergies Allergy/AdvReac Type Severity Reaction Status Date / Time latex Allergy Severe Anaphylaxis Verified 11/03/22 16:46 levofloxacin [From Levaquin] Allergy Unknown Verified 11/03/22 16:46 Penicillins AdvReac Severe Rash/Hives/Shortness Verified 11/03/22 16:46 of Breath buspirone [From BuSpar] AdvReac dizziness/n Verified 11/03/22 16:46 ausea escitalopram [From Lexapro] AdvReac heart Verified 11/03/22 16:46 racing prednisone AdvReac MAKES HER Verified 11/03/22 16:46 FEEL LIGHTHEADED vilazodone [From Viibryd] AdvReac lowered BP Verified 11/03/22 16:46 Physical Exam Vitals: Intake and Output 11/04/22 11/04/22 11/05/22 14:59 22:59 06:59 Other: Weight 71.6 kg Results CBC & Chem 7: 11/04/22 11:16 11/04/22 11:16 Labs: Abnormal Lab Results - Last 24 Hours (Table) 11/04/22 Range/Units 11:16 Hct 48.5 H (34.0-46.0) %
[2022-11-05] MEDS: LEVOTHYROXINE 50 MCG TAB PO SCH (08:17)
[2022-11-05] MEDS: CHOLECALCIFEROL 25 MCG (1000 IU) TABLET PO SCH (08:17)
[2022-11-05] MEDS: CYANOCOBALAMIN 500 MCG TAB PO SCH (08:17)
[2022-11-05] MEDS: ASCORBIC ACID 500 MG TAB PO SCH (08:17)
[2022-11-05] MEDS: clonazePAM 0.5 MG TAB PO SCH ×3 (08:18→21:55)
[2022-11-05] MEDS: NICOTINE 7MG/24HR PATCH TRANSDERM SCH (08:19)
[2022-11-05 09:07] LABS: Appearance,Urine Clear (Clear); Bilirubin,Urine Negative (Negative); Blood,Urine Negative (Negative); Color,Urine Yellow; Glucose,Urine (UA) Negative (Negative); Ketones,Urine Negative (Negative); Leukocyte Esterase,Urine Negative (Negative); Nitrite,Urine Negative (Negative); PH, Urine 5.5 (5.0-8.0); Protein,Urine Negative (Negative); Specific Gravity,Urine 1.016 (1.001-1.035); Urobilinogen,Urine <2.0 mg/dL (<2.0)
--- NOTE | 2022-11-05 12:08 | P.PN ---
Progress Note - Text Progress Note Date: 11/05/22 Interval History: Patient was seen wandering the hallways and was directable and agreeable to speak with typewriter ribbon winder in the office. Currently, the patient endorses vague symptoms of "zapping in my brain and ringing in my ears." She reports that this is causing her to feel uneasy. She is very vague in discussing her symptoms stating that she just "does not feel right." She then states that she has issues regarding her focus and her motivation. The patient reports that she has been suicidal because she feels like she cannot continue living like this. The patient is chronically prescribed Klonopin. We discussed at length and Klonopin is a depressive medication which may be contributing to her inability to focus, "dull feeling," and depression/lack motivation. We discussed at length that anxiety also remains elevated because of the chronic prescription of Klonopin. The patient states that she feels like she will need to go to rehab in order to come off Klonopin because she has been on the medication for 34 years. She is not endorsing any auditory or visual hallucinations. She reports no paranoia however endorses various somatic complaints. Mental Status Exam: General Appearance: Patient appears to be stated age is alert, directable, and cooperative. Behavior: Patient is calmly seated without any agitated behavior. She becomes tearful during the interview. Speech: Patient's speech is fluent and nonpressured. Repetitive and hyperverbal. Mood/Affect: Mood is "I just don't feel right," affect is incongruent and appears to be euthymic. Suicidality/Homicidality: Patient denies having any suicidal or homicidal ideation intent or plan. Perceptions: Patient denies any visual hallucinations and denies any auditory hallucinations Though content/process: Vague. However linear and logical in short conversation. Memory and concentration: AOX3, grossly intact for the purposes of this session Judgment and insight: Improving mildly Vital Signs Temp 97.7 F 11/05/22 06:36 Pulse 54 L 11/05/22 06:36 Resp 18 11/05/22 06:36 BP 104/63 11/05/22 06:36 Pulse Ox 97 11/05/22 06:36 FiO2 Intake & Output 11/04/22 11/05/22 11/05/22 18:59 06:59 18:59 Weight 71.6 kg Laboratory Results - Last 24 Hours 11/04/22 11/04/22 11/04/22 11:16 11:16 11:16 WBC 6.7 RBC 4.88 Hgb 15.6 Hct 48.5 H MCV 99.2 MCH 31.9 MCHC 32.1 RDW 14.0 Plt Count 353 MPV 9.1 Neutrophils % 74 Lymphocytes % 19 Monocytes % 5 Eosinophils % 1 Basophils % 1 Neutrophils # 4.9 Lymphocytes # 1.3 Monocytes # 0.3 Eosinophils # 0.1 Basophils # 0.[address] Glu mg/dL 117 Hemoglobin A1c 5.7 Triglycerides 149.00 Cholesterol 178.00 LDL Cholesterol, Calc 107.7 VLDL Cholesterol, Calc 29.80 HDL Cholesterol 40.50 Cholesterol/HDL Ratio 4.40 TSH 1.830 Urine Color Urine Appearance Urine pH Ur Specific [place] Urine Protein Urine Glucose (UA) Urine Ketones Urine Blood Urine Nitrite Urine Bilirubin Urine Urobilinogen Ur Leukocyte Esterase 11/05/22 08:54 WBC RBC Hgb Hct MCV MCH MCHC RDW Plt Count MPV Neutrophils % Lymphocytes % Monocytes % Eosinophils % Basophils % Neutrophils # Lymphocytes # Monocytes # Eosinophils # Basophils # Estimated Ave Glu mg/dL Hemoglobin A1c Triglycerides Cholesterol LDL Cholesterol, Calc VLDL Cholesterol, Calc HDL Cholesterol Cholesterol/HDL Ratio TSH Urine Color Yellow Urine Appearance Clear Urine pH 5.5 Ur Specific [place] 1.016 Urine Protein Negative Urine Glucose (UA) Negative Urine Ketones Negative Urine Blood Negative Urine Nitrite Negative Urine Bilirubin Negative Urine Urobilinogen <2.0 Ur Leukocyte Esterase Negative Assessment Depressive disorder, unspecified Somatic symptoms disorder Generalized anxiety disorder with panic attacks Benzodiazepine dependence Tobacco use disorder Plan: -Patient continues to meet criteria for inpatient psychiatric admission for symptom stabilization and safety. Patient has signed adult voluntary form and medication consent and was placed in patient's chart. -Medications: Increase gabapentin 100 mg by mouth 3 times a day proper label use for anxiety Decrease Klonopin to 0.5 mg by mouth 3 times a day for anxiety. Continue Remeron 7.5 mg by mouth at bedtime for depression/anxiety/sleep -When necessary Ativan and Haldol for agitation/aggression. -NRT - nicotine patch -SW on board for discharge planning. Encouraged the patient to participate in milieu.
[2022-11-05] MEDS: GABAPENTIN 100 MG CAP PO SCH ×2 (15:47→21:59)
[2022-11-05 19:47] LABS: Urine Alcohol Negative (Negative); Urine Barbiturate Negative (Negative); Urine Cocaine Negative (Negative); Urine Methadone Negative (Negative); Urine Opiates Negative (Negative); Urine Phencyclidine Negative (Negative)
[2022-11-05] MEDS: MIRTAZAPINE 15 MG TAB PO SCH (21:55)
[2022-11-06] MEDS: NICOTINE 7MG/24HR PATCH TRANSDERM SCH (08:38)
[2022-11-06] MEDS: CHOLECALCIFEROL 25 MCG (1000 IU) TABLET PO SCH (08:38)
[2022-11-06] MEDS: GABAPENTIN 100 MG CAP PO SCH ×5 (08:38→22:05)
[2022-11-06] MEDS: ASCORBIC ACID 500 MG TAB PO SCH (08:39)
[2022-11-06] MEDS: LEVOTHYROXINE 50 MCG TAB PO SCH (08:39)
[2022-11-06] MEDS: clonazePAM 0.5 MG TAB PO SCH ×3 (08:39→21:57)
[2022-11-06] MEDS: CYANOCOBALAMIN 500 MCG TAB PO SCH (08:39)
[2022-11-06] MEDS ORDERED: NORTRIPTYLINE 25 MG CAP PO ONE (16:15)
[2022-11-06] MEDS: NORTRIPTYLINE 25 MG CAP PO SCH ×3 (21:24→22:05)
[2022-11-06] MEDS: MAGNESIUM OXIDE 400 MG TAB PO SCH (21:58)
[2022-11-07] MEDS: ASCORBIC ACID 500 MG TAB PO SCH (08:34)
[2022-11-07] MEDS: LEVOTHYROXINE 50 MCG TAB PO SCH (08:34)
[2022-11-07] MEDS: CHOLECALCIFEROL 25 MCG (1000 IU) TABLET PO SCH (08:34)
[2022-11-07] MEDS: CYANOCOBALAMIN 500 MCG TAB PO SCH (08:34)
[2022-11-07] MEDS: clonazePAM 0.5 MG TAB PO SCH (08:36)
[2022-11-07] MEDS: NICOTINE 7MG/24HR PATCH TRANSDERM SCH (08:37)
[2022-11-07] MEDS: GABAPENTIN 100 MG CAP PO SCH (08:37)
--- NOTE | 2022-11-07 11:15 | P.PN ---
Progress Note - Text Progress Note Date: 11/07/22 Interval History: Patient was seen wandering the hallways and was directable and agreeable to speak with jingle writer in the office. The patient reports she had difficulty with tinnitus yesterday and that it appeared to worsen. She however refuses to have any titration of her medications and has been refusing her gabapentin. She attributes the medication changes to numerous somatic symptoms including worsening tinnitus, abdominal pain, and worsening anxiety. The patient expresses the only medication that ever made her feel "normal" again is valium. Despite this, the patient does not appear to have any bizarre or overly anxious affect. She continues to be vague in regards to what is keeping her from feeling "normal." She states she feels "just not right. light-headed, brain zaps, ringing ears, and general malaise." This provider educated the patient on frequent outpatient follow-up for reassurance. She however continues to be repetitive and states, "I never felt this way before, why am I feeling this way now." This provider explained numerous times that there are age related changes in regards to our physical and mental health. This provider discussed that she has chronically been prescribed benzodiazepines which may worsen anxiety over time. Despite constant education, the patient continues to reiterate the same question stating she believes her problems stem from "new medications being tried." She reports she experiences suicidal thoughts because she is fearful she might not feel "right" again. She reports no homicidal ideation. She reports no auditory or visual hallucinations. Mental Status Exam: General Appearance: Patient appears to be stated age is alert, directable, and cooperative. Behavior: Patient is calmly seated without any agitated behavior. Speech: Patient's speech is fluent and nonpressured. Repetitive and hyperverbal. Mood/Affect: Mood is "I'm a bit woozy." Affect is euthymic and nonchalant. Suicidality/Homicidality: Patient denies having any suicidal or homicidal ideation intent or plan. Perceptions: Patient denies any visual hallucinations and denies any auditory hallucinations Though content/process: Vague. However linear and logical in short conversation. Memory and concentration: AOX3, grossly intact for the purposes of this session Judgment and insight: Poor Vital Signs Temp 97.9 F 11/07/22 04:01 Pulse 85 11/07/22 04:01 Resp 16 05/17/23 04:01 BP 124/54 11/07/22 04:01 Pulse Ox 98 11/07/22 04:01 FiO2 Assessment Depressive disorder, unspecified Somatic symptoms disorder Generalized anxiety disorder with panic attacks Benzodiazepine dependence Tobacco use disorder Plan: -Patient continues to meet criteria for inpatient psychiatric admission for symptom stabilization and safety. Patient has signed adult voluntary form and medication consent and was placed in patient's chart. -Medications: Discontinue Gabapentin as patient is nonadherent. Discontinue klonopin and start valium 2 mg twice a day for anxiety. Continue Pamelor 25 mg at bedtime for anxiety, tinnitus, and depression. -When necessary Ativan and Haldol for agitation/aggression. -NRT - nicotine patch -SW on board for discharge planning. Encouraged the patient to participate in milieu.
--- NOTE | 2022-11-07 11:17 | P.PN ---
Progress Note - Text Progress Note Date: 11/06/22 Interval History: Patient was seen wandering the hallways and was directable and agreeable to speak with magazine writer in the office. Patient continues to endorse suicidal ideation in regards to her inability to feel "normal." She reports that the tinnitus has been worsening. She is agreeable to starting pamelor for tinnitus and depression as research has shown it to be effective in decreasing tinnitus and comorbid depression. She denies any HI, AH, or VH. She reports sleep and appetite were fine. Mental Status Exam: General Appearance: Patient appears to be stated age is alert, directable, and cooperative. Behavior: Patient is calmly seated without any agitated behavior. Tearful. Speech: Patient's speech is fluent and nonpressured. Repetitive and hyperverbal. Mood/Affect: Mood is "why am I not better," affect is incongruent and appears to be euthymic. Suicidality/Homicidality: Patient denies having any suicidal or homicidal ideation intent or plan. Perceptions: Patient denies any visual hallucinations and denies any auditory hallucinations Though content/process: Vague. However linear and logical in short conversation. Memory and concentration: AOX3, grossly intact for the purposes of this session Judgment and insight: Improving mildly Assessment Depressive disorder, unspecified Somatic symptoms disorder Generalized anxiety disorder with panic attacks Benzodiazepine dependence Tobacco use disorder Plan: -Patient continues to meet criteria for inpatient psychiatric admission for symptom stabilization and safety. Patient has signed adult voluntary form and medication consent and was placed in patient's chart. -Medications: Continue gabapentin 100 mg by mouth 3 times a day proper label use for anxiety Continue Klonopin to 0.5 mg by mouth 3 times a day for anxiety. Discontinue Remeron and start Pamelor 25 mg at bedtime for depression/anxiety/tinnitus -When necessary Ativan and Haldol for agitation/aggression. -NRT - nicotine patch -SW on board for discharge planning. Encouraged the patient to participate in milieu.
[2022-11-07] MEDS: MAGNESIUM OXIDE 400 MG TAB PO SCH (20:51)
[2022-11-07] MEDS: diazePAM 2 MG TAB PO SCH (20:51)
[2022-11-07] MEDS: NORTRIPTYLINE 25 MG CAP PO SCH (20:51)
[2022-11-08] MEDS: MAG HYDROX/AL HYDROX/SIMETH 30 ML CUP PO PRN (02:52)
[2022-11-08] MEDS: ASCORBIC ACID 500 MG TAB PO SCH (08:51)
[2022-11-08] MEDS: LEVOTHYROXINE 50 MCG TAB PO SCH (08:51)
[2022-11-08] MEDS: CHOLECALCIFEROL 25 MCG (1000 IU) TABLET PO SCH (08:51)
[2022-11-08] MEDS: CYANOCOBALAMIN 500 MCG TAB PO SCH (08:52)
[2022-11-08] MEDS: diazePAM 2 MG TAB PO SCH (10:20)
[2022-11-08] MEDS: clonazePAM 1 MG TAB PO SCH ×3 (10:35→15:21)
--- NOTE | 2022-11-08 14:01 | P.PN ---
Progress Note - Text Progress Note Date: 11/08/22 Interval History: Patient was seen wandering the hallways and was directable and agreeable to speak with magnetic tape typewriter operator in the office. The patient continues to be intermittently adherent with medications. She continues to attribute vague somatic complaints to the medications that she is taking. She continues to report feelings that "people are squeezing my brain." She also reports that she feels "not right." However, the patient displays a euthymic affect, normal interactions with peers, and a relaxed posture when observed by this provider on the milieu and during the psychiatric interview. We discussed at length somatic symptoms disorder and the importance of reassurance and regular outpatient follow-up. She was also advised to check with an ENT specialist in the outpatient setting for her tinnitus. The patient expresses a strong desire to return back to her previous dose of Klonopin. She does not endorse any suicidal ideation however she expresses that she is uncertain if she can "continue to live like this." Mental Status Exam: General Appearance: Patient appears to be stated age is alert, directable, and cooperative. Behavior: Patient is calmly seated without any agitated behavior. Speech: Patient's speech is fluent and nonpressured. Repetitive and hyperverbal. Mood/Affect: Mood is "I think it's the medication." Affect is euthymic and nonchalant. Suicidality/Homicidality: Patient denies having any suicidal or homicidal ideation intent or plan. Perceptions: Patient denies any visual hallucinations and denies any auditory hallucinations Though content/process: Vague. Very fixated and somatic. Memory and concentration: AOX3, grossly intact for the purposes of this session Judgment and insight: Poor Assessment Depressive disorder, unspecified Somatic symptoms disorder Generalized anxiety disorder with panic attacks Benzodiazepine dependence Tobacco use disorder Plan: -Patient continues to meet criteria for inpatient psychiatric admission for symptom stabilization and safety. Patient has signed adult voluntary form and medication consent and was placed in patient's chart. -Medications: Discontinue Gabapentin as patient is nonadherent. Discontinue klonopin and start valium 2 mg twice a day for anxiety. Continue Pamelor 25 mg at bedtime for anxiety, tinnitus, and depression. -When necessary Ativan and Haldol for agitation/aggression. -NRT - nicotine patch -SW on board for discharge planning. Encouraged the patient to participate in milieu.
[2022-11-08] MEDS: clonazePAM 0.5 MG TAB PO SCH ×3 (14:17→21:55)
[2022-11-08] MEDS ORDERED: clonazePAM 1 MG TAB PO SCH (16:00)
[2022-11-08] MEDS: NICOTINE 14MG/24HR PATCH TRANSDERM SCH (18:31)
[2022-11-08] MEDS: MAGNESIUM OXIDE 400 MG TAB PO SCH (21:55)
[2022-11-08] MEDS: NORTRIPTYLINE 25 MG CAP PO SCH (21:55)
[2022-11-09] MEDS: MAG HYDROX/AL HYDROX/SIMETH 30 ML CUP PO PRN (02:42)
[2022-11-09] MEDS: clonazePAM 0.5 MG TAB PO SCH ×4 (09:15→21:48)
[2022-11-09] MEDS: NICOTINE 14MG/24HR PATCH TRANSDERM SCH (09:15)
[2022-11-09] MEDS: CYANOCOBALAMIN 500 MCG TAB PO SCH (09:15)
[2022-11-09] MEDS: ASCORBIC ACID 500 MG TAB PO SCH (09:16)
[2022-11-09] MEDS: CHOLECALCIFEROL 25 MCG (1000 IU) TABLET PO SCH (09:16)
[2022-11-09] MEDS: LEVOTHYROXINE 50 MCG TAB PO SCH (09:16)
[2022-11-09] MEDS ORDERED: diphenhydrAMINE 50 MG CAP PO PRN (10:08)
[2022-11-09 10:35] LABS: Basophils % (A) 1 %; Eosinophils # (A) 0.1 k/uL (0-0.7); Eosinophils % (A) 2 %; HCT 46.5 % (34.0-46.0); HGB 15.2 gm/dL (11.4-16.0); Lymphocytes # (A) 1.4 k/uL (1.0-4.8); Lymphocytes % (A) 18 %; MCH 32.8 pg (25.0-35.0); MCHC 32.6 g/dL (31.0-37.0); MCV 100.5 fL (80.0-100.0); Macrocytosis Slight; Mean Platelet Volume 8.8; Monocytes # (A) 0.4 k/uL (0-1.0); Monocytes % (A) 5 %; Neutrophils # (A) 5.4 k/uL (1.3-7.7); Neutrophils % (A) 73 %; Platelet Count 295 k/uL (150-450); RBC 4.63 m/uL (3.80-5.40); RDW 13.5 % (11.5-15.5); WBC 7.4 k/uL (3.8-10.6)
[2022-11-09 10:42] LABS: ALT 37 U/L (4-34); AST 22 U/L (14-36); African American GFR (CKD) >90 (>60 ml/min/1.73 sqM); Albumin 3.4 g/dL (3.5-5.0); Alkaline Phosphatase 79 U/L (38-126); Anion Gap 8 mmol/L; Blood Urea Nitrogen 15 mg/dL (7-17); Calcium 8.5 mg/dL (8.4-10.2); Carbon Dioxide 28 mmol/L (22-30); Chloride 103 mmol/L (98-107); Glucose 112 mg/dL (74-99); Non-African American GFR(CKD) 82 (>60 ml/min/1.73 sqM); Potassium 4.2 mmol/L (3.5-5.1); Sodium 139 mmol/L (137-145); Total Bilirubin 0.5 mg/dL (0.2-1.3); Total Protein 6.2 g/dL (6.3-8.2)
--- NOTE | 2022-11-09 12:33 | P.PN ---
Progress Note - Text Progress Note Date: 11/09/22 Interval History: Patient was seen wandering the hallways and was directable and agreeable to speak with senior underwriter in the office. Patient has been adherent with her medications however states that she is feeling significantly worse. She reports that the medications are causing her to have intrusive thoughts of suicide. She reports that she has been having thoughts of wanting to jump out of a window. She reports no auditory or visual hallucinations. She denies any paranoia or other delusions. She reports elevated anxiety. Collateral information was obtained by the patient's sister Dawn reports that the patient is constantly fixated on side effects and is very adverse to medication changes. She reports that this has been an ongoing problem for 2 years. She also reports that her mother did require electroconvulsive therapy in the past. The patient was advised that we are to continue with her current medication regimen with titration of her meds. Medicine will be consulted for evaluation of bradycardia. Mental Status Exam: General Appearance: Patient appears to be stated age is alert, directable, and cooperative. Behavior: Patient is calmly seated without any agitated behavior. Cries throughout the interview. Speech: Patient's speech is fluent and nonpressured. Repetitive and hyperverbal. Mood/Affect: Mood is "I feel like I'm just getting worse." Affect is tearful. Suicidality/Homicidality: Patient denies having any suicidal or homicidal idea tion intent or plan. Perceptions: Patient denies any visual hallucinations and denies any auditory hallucinations Though content/process: Vague. Very fixated and somatic. Memory and concentration: AOX3, grossly intact for the purposes of this session Judgment and insight: Poor Vital Signs Temp 97.5 F L 11/09/22 06:45 Pulse 49 L 11/09/22 06:45 Resp 16 11/09/22 06:45 BP 117/57 11/09/22 06:45 Pulse Ox 98 11/07/22 04:01 FiO2 Laboratory Results - Last 24 Hours 11/09/22 11/09/22 10:15 10:15 WBC 7.4 RBC 4.63 Hgb 15.2 Hct 46.5 H MCV 100.5 H MCH 32.8 MCHC 32.6 RDW 13.5 Plt Count 295 MPV 8.8 Neutrophils % 73 Lymphocytes % 18 Monocytes % 5 Eosinophils % 2 Basophils % 1 Neutrophils # 5.4 Lymphocytes # 1.4 Monocytes # 0.4 Eosinophils # 0.1 Basophils # 0.0 Macrocytosis Slight Sodium 139 Potassium 4.2 Chloride 103 Carbon Dioxide 28 Anion Gap 8 BUN 15 Creatinine 0.77 Est GFR (CKD-EPI)AfAm >90 Est GFR (CKD-EPI)NonAf 82 Glucose 112 H Calcium 8.5 Total Bilirubin 0.5 AST 22 ALT 37 H Alkaline Phosphatase 79 Total Protein 6.2 L Albumin 3.4 L Assessment Depressive disorder, unspecified Somatic symptoms disorder Generalized anxiety disorder with panic attacks Benzodiazepine dependence Tobacco use disorder Plan: -Patient continues to meet criteria for inpatient psychiatric admission for symptom stabilization and safety. Patient has signed adult voluntary form and medication consent and was placed in patient's chart. -Medications: Decrease Klonopin to 0.25 mg by mouth 4 times a day for anxiety - we will continue treatment with this dose. Continue Pamelor 50 mg at bedtime for anxiety, tinnitus, and depression. Consider titration of this medication over the weekend. Patient however will remain hesitant in regards titration however this would be necessary in order to reach a therapeutic dose. -When Necessary Ativan and Haldol for agitation/aggression. -NRT - nicotine patch -SW on board for discharge planning. Encouraged the patient to participate in milieu.
--- NOTE | 2022-11-09 15:54 | P.PN ---
Progress Note - Text Progress Note Date: 11/09/22 Patient seen and examined. Tinnitus is a chronic problem. Both ears examined. Mild cerumen impaction on the right. Has asymptomatic bradycardia. EKG reviewed. If symptoms arise, get another EKG.
[2022-11-09] MEDS: NORTRIPTYLINE 25 MG CAP PO SCH (21:50)
[2022-11-09] MEDS: MAGNESIUM OXIDE 400 MG TAB PO SCH (21:50)
[2022-11-10] MEDS: MAG HYDROX/AL HYDROX/SIMETH 30 ML CUP PO PRN (00:40)
[2022-11-10] MEDS: LEVOTHYROXINE 50 MCG TAB PO SCH (06:12)
[2022-11-10] MEDS: CHOLECALCIFEROL 25 MCG (1000 IU) TABLET PO SCH (09:10)
[2022-11-10] MEDS: ASCORBIC ACID 500 MG TAB PO SCH (09:10)
[2022-11-10] MEDS: NICOTINE 14MG/24HR PATCH TRANSDERM SCH (09:10)
[2022-11-10] MEDS: CYANOCOBALAMIN 500 MCG TAB PO SCH (09:11)
[2022-11-10] MEDS: clonazePAM 0.5 MG TAB PO SCH ×4 (09:11→21:30)
--- NOTE | 2022-11-10 14:22 | P.PN ---
Progress Note - Text Progress Note Date: 11/10/22 Interval History: Patient was seen wandering the hallways and was directable and agreeable to speak with commercial insurance underwriter in the office. She is quite somatically focused and pendulates between discussing tinnitus, anxiety, questions about vague symptoms and not being on medications. Patient continues to have poor insight and does not really believe she needs to be on medications. When asked if tinnitus has improved with Pamelor compared to Remeron, patient is unable to answer the question and vaguely states that she is continuing to have tinnitus. However, when pressed, she states that since this seems to be little bit better on the Pamelor. However, patient appears to be quite worried about the dose increase for tonight. Despite discussing importance and having adequate dosing, patient is hesitant to increase it. She was informed that it would be increased for tomorrow night but that it will be kept same for today. She appeared to be somewhat more agreeable with this plan. She reports that she has been having thoughts of wanting to jump out of a window. She reports no auditory or visual hallucinations. She denies any paranoia or other delusions. She reports elevated anxiety. Medical team evaluated tinnitus and did not find any significant concerns. Patient continues to remain asymptomatic for her bradycardia. Mental Status Exam: General Appearance: Patient appears to be stated age is alert, directable, and cooperative. Behavior: Restless Speech: Patient's speech is fluent and nonpressured. Repetitive and hyperverbal. Mood/Affect: Mood is "I feel like I'm just getting worse." Affect is tearful, anxious. Suicidality/Homicidality: Patient denies having any suicidal or homicidal ideation intent or plan. Perceptions: Patient denies any visual hallucinations and denies any auditory hallucinations Though content/process: Vague. Very fixated on somatic symptoms Memory and concentration: AOX3, grossly intact for the purposes of this session Judgment and insight: Poor Assessment Depressive disorder, unspecified Somatic symptoms disorder Generalized anxiety disorder with panic attacks Benzodiazepine dependence Tobacco use disorder R/o OCD Plan: -Patient continues to meet criteria for inpatient psychiatric admission for symptom stabilization and safety. Patient has signed adult voluntary form and medication consent and was placed in patient's chart. -Medications: Continue Klonopin 0.25 mg by mouth 4 times a day for anxiety - we will continue treatment with this dose. Continue Pamelor 50 mg at bedtime for anxiety, tinnitus, and depression. Will increase tomorrow night. Patient however will remain hesitant in regards titrat ion however this would be necessary in order to reach a therapeutic dose. -When Necessary Ativan and Haldol for agitation/aggression. -NRT - nicotine patch -SW on board for discharge planning. Encouraged the patient to participate in milieu.
[2022-11-10] MEDS ORDERED: NORTRIPTYLINE 25 MG CAP PO SCH ×2 (21:00)
[2022-11-10] MEDS: MAGNESIUM OXIDE 400 MG TAB PO SCH (21:30)
[2022-11-11] MEDS: MAG HYDROX/AL HYDROX/SIMETH 30 ML CUP PO PRN (01:16)
[2022-11-11] MEDS: LEVOTHYROXINE 50 MCG TAB PO SCH (07:01)
[2022-11-11] MEDS: NICOTINE 14MG/24HR PATCH TRANSDERM SCH (09:12)
[2022-11-11] MEDS: ASCORBIC ACID 500 MG TAB PO SCH (09:13)
[2022-11-11] MEDS: CYANOCOBALAMIN 500 MCG TAB PO SCH (09:13)
[2022-11-11] MEDS: clonazePAM 0.5 MG TAB PO SCH ×4 (09:13→21:29)
[2022-11-11] MEDS: CHOLECALCIFEROL 25 MCG (1000 IU) TABLET PO SCH (09:14)
--- NOTE | 2022-11-11 14:15 | P.PN ---
Progress Note - Text Progress Note Date: 11/11/22 Interval History: Patient was seen wandering the hallways and was directable and agreeable to speak with typewriter operator automatic in the office. She is slightly less somatically focused today although she refers to anxiety as "dizziness". She is fixated on why her Klonopin was lowered and has all of a sudden. She states that due to this, she's been experiencing higher amounts of anxiety particularly during the daytime. Patient appears to be less concerned with staying on Pamelor. Orth ostatic vitals were completed by the nursing staff yesterday and did not reflect orthostatic hypotension. Patient reports sleeping well. She states that her mood is "good ". She reports having intermittent passive suicidal ideation but states that this is ego dystonic. She requests nicotine patch dose to be lowered. She reports no auditory or visual hallucinations. She denies any paranoia or other delusions. She reports elevated anxiety. Medical team evaluated tinnitus and did not find any significant concerns. Patient continues to remain asymptomatic for her bradycardia. Mental Status Exam: General Appearance: Patient appears to be stated age is alert, directable, and cooperative. Behavior: Less restless Speech: Patient's speech is fluent and nonpressured. Repetitive and hyperv erbal. Mood/Affect: Mood is "good" Affect is anxious but less than before Suicidality/Homicidality: Patient denies having any suicidal or homicidal ideation intent or plan. Perceptions: Patient denies any visual hallucinations and denies any auditory hallucinations Though content/process: Vague. Very fixated on somatic symptoms Memory and concentration: AOX3, grossly intact for the purposes of this session Judgment and insight: Poor Assessment Depressive disorder, unspecified Somatic symptoms disorder Generalized anxiety disorder with panic attacks Benzodiazepine dependence Tobacco use disorder R/o OCD Plan: -Patient continues to meet criteria for inpatient psychiatric admission for symptom stabilization and safety. Patient has signed adult voluntary form and medication consent and was placed in patient's chart. -Medications: Change Klonopin to 0.25 mg by mouth TID and add 0.5 mg additional dose during daytime Increase Pamelor to 75 mg at bedtime for anxiety, tinnitus, and depression. Patient less hesitant in regards titration and discussed this would be necessary in order to reach a therapeutic dose. -NRT - nicotine patch -SW on board for discharge planning. Encouraged the patient to participate in milieu.
[2022-11-11] MEDS: NICOTINE 7MG/24HR PATCH TRANSDERM SCH (14:32)
[2022-11-11] MEDS ORDERED: clonazePAM 0.5 MG TAB PO STA (18:14)
[2022-11-11] MEDS ORDERED: NORTRIPTYLINE 25 MG CAP PO SCH (21:00)
[2022-11-11] MEDS: MAGNESIUM OXIDE 400 MG TAB PO SCH (21:29)
[2022-11-12] MEDS: MAG HYDROX/AL HYDROX/SIMETH 30 ML CUP PO PRN (05:00)
[2022-11-12] MEDS: ASCORBIC ACID 500 MG TAB PO SCH (08:44)
[2022-11-12] MEDS: CHOLECALCIFEROL 25 MCG (1000 IU) TABLET PO SCH (08:44)
[2022-11-12] MEDS: LEVOTHYROXINE 50 MCG TAB PO SCH (08:44)
[2022-11-12] MEDS: CYANOCOBALAMIN 500 MCG TAB PO SCH (08:44)
[2022-11-12] MEDS: clonazePAM 0.5 MG TAB PO SCH ×3 (08:44→22:01)
[2022-11-12] MEDS: NICOTINE 7MG/24HR PATCH TRANSDERM SCH (08:47)
[2022-11-12] MEDS ORDERED: clonazePAM 0.5 MG TAB PO SCH ×2 (13:00)
--- NOTE | 2022-11-12 14:56 | P.PN ---
Progress Note - Text Progress Note Date: 11/12/22 Clinical Problems: Major depressive disorder, generalized anxiety disorder, physiological benzodiazepine dependence, benzodiazepine withdrawal, tricyclic antidepressant-induced hypertension Interim history: I reviewed the medical record, interviewed the patient and discussed the treatment and treatment plan with the treatment team. Patient complained of dysphoria, tremor, restlessness and lightheadedness. She is concerned that her blood pressure readings are low and she feels dizzy. She also complained that we had decreased her dose of clonazepam. She repeated he stated she did not want us to lower the dose of Klonopin; a medication that she had taken for several years. However, she wishes us to address the feelings of depression and thoughts of suicide. She refused to take 75 mg of Pamelor this morning because she noticed the increased jitteriness and lightheadedness with increased from 50 mg to 75 mg. She was attending approximately half of the therapeutic groups and activities. She alleges that she is unable attended groups because her level of distress. Mental status exam: She presented as a casually groomed elderly female who was pleasant and cooperative. She made eye contact and attended to the interview. She was irritable and tearful intermittently during the interview. She has a slight hand tremor. Her speech was spontaneous with slight increase in rate but normal rhythm. Her affect was predominantly anxious, worried and fearful. She did not express suicidal ideation or wishes. She feels hopeless, helpless but not worthless. There are no psychotic symptoms. Her thinking was concrete. Associations were clear, coherent and goal directed. Assessment: She is having multiple symptoms and complaints. She is likely experiencing acute benzodiazepine withdrawal from the fairly rapid reduction in the dose of clonazepam. Some for symptoms including dysphoria, tremor and restlessness may be related to rapid increase in nortriptyline. She continues to meet criteria for inpatient hospitalization for psychiatric stabilization and symptoms control. Plan: Continue inpatient treatment. At the patient's insistence, increase lorazepam to 0.5 mg 4 times a day, decrease Pamelor to 50 mg daily, and sitter trial of Lamictal or a second-generation antipsychotic and status and to person, encourage participation in therapeutic groups and activities. Evaluate clinical status response to treatment daily basis.
[2022-11-12] MEDS ORDERED: clonazePAM 1 MG TAB PO SCH (21:00)
[2022-11-12] MEDS: NORTRIPTYLINE 25 MG CAP PO SCH (22:00)
[2022-11-12] MEDS: MAGNESIUM OXIDE 400 MG TAB PO SCH (22:00)
[2022-11-13] MEDS: clonazePAM 0.5 MG TAB PO SCH ×4 (08:36→21:26)
[2022-11-13] MEDS: CYANOCOBALAMIN 500 MCG TAB PO SCH (08:36)
[2022-11-13] MEDS: ASCORBIC ACID 500 MG TAB PO SCH (08:36)
[2022-11-13] MEDS: NICOTINE 7MG/24HR PATCH TRANSDERM SCH (08:36)
[2022-11-13] MEDS: LEVOTHYROXINE 50 MCG TAB PO SCH (08:36)
[2022-11-13] MEDS: CHOLECALCIFEROL 25 MCG (1000 IU) TABLET PO SCH (08:36)
--- NOTE | 2022-11-13 12:56 | P.PN ---
Progress Note - Text Progress Note Date: 11/13/22 Interval History: Patient was seen wandering the hallways and was directable and agreeable to speak with medical underwriter in the office. Patient reports that she is feeling nervous but better. She states she feels that she is ready to go home. She is future and goal oriented. She expresses a desire to be slowly taken off klonopin. She reports no suicidal or homicidal ideation, intention, and/or plan. She reports no auditory or visual hallucinations. She continues to report vague symptoms of "head squeezing, ear ringing, and dizziness." However despite complaints of tinnitus the patient is able to hear this provider clearly. She also appears to have normal gait. She does express that she has been chronically prescribed klonopin and now agrees that she is "ikely feeling normal and that she is not used to normal." She reports no other medical issues or concerns. Mental Status Exam: General Appearance: Patient appears to be stated age is alert, directable, and cooperative. Behavior: Patient is calmly seated without any agitated behavior. Speech: Patient's speech is fluent and nonpressured. Mood/Affect: Mood is improving mildly, affect is congruent and constricted. Suicidality/Homicidality: Patient denies having any suicidal or homicidal ideation intent or plan. Perceptions: Patient denies any visual hallucinations and denies any auditory hallucinations Though content/process: There is no evidence of any delusional thought content and thought process is linear and goal-directed. Memory and concentration: AOX3, grossly intact for the purposes of this session Judgment and insight: Improving mildly Vital Signs Temp 97.0 F L 11/13/22 07:21 Pulse 54 L 11/13/22 07:21 Resp 14 11/13/22 07:21 BP 132/60 11/13/22 07:21 Pulse Ox 99 11/12/22 05:00 FiO2 Laboratory Results WBC 7.4 k/uL (3.8-10.6) 11/09/22 10:15 RBC 4.63 m/uL (3.80-5.40) 11/09/22 10:15 Hgb 15.2 gm/dL (11.4-16.0) 11/09/22 10:15 Hct 46.5 % (34.0-46.0) H 11/09/22 10:15 MCV 100.5 fL (80.0-100.0) H 11/09/22 10:15 MCH 32.8 pg (25.0-35.0) 11/09/22 10:15 MCHC 32.6 g/dL (31.0-37.0) 11/09/22 10:15 RDW 13.5 % (11.5-15.5) 11/09/22 10:15 Plt Count 295 k/uL (150-450) 11/09/22 10:15 MPV 8.8 11/09/22 10:15 Neutrophils % 73 % 11/09/22 10:15 Lymphocytes % 18 % 11/09/22 10:15 Monocytes % 5 % 11/09/22 10:15 Eosinophils % 2 % 11/09/22 10:15 Basophils % 1 % 11/09/22 10:15 Neutrophils # 5.4 k/uL (1.3-7.7) 11/09/22 10:15 Lymphocytes # 1.4 k/uL (1.0-4.8) 11/09/22 10:15 Monocytes # 0.4 k/uL (0-1.0) 11/09/22 10:15 Eosinophils # 0.1 k/uL (0-0.7) 11/09/22 10:15 Basophils # 0.0 k/uL (0-0.2) 11/09/22 10:15 Macrocytosis Slight 11/09/22 10:15 Sodium 139 mmol/L (137-145) 11/09/22 10:15 Potassium 4.2 mmol/L (3.5-5.1) 11/09/22 10:15 Chloride 103 mmol/L (98-107) 11/09/22 10:15 Carbon Dioxide 28 mmol/L (22-30) 11/09/22 10:15 Anion Gap 8 mmol/L 11/09/22 10:15 BUN 15 mg/dL (7-17) 11/09/22 10:15 Creatinine 0.77 mg/dL (0.52-1.04) 11/09/22 10:15 Est GFR (CKD-EPI)AfAm >90 (>60 ml/min/1.73 sqM) 11/09/22 10:15 Est GFR (CKD-EPI)NonAf 82 (>60 ml/min/1.73 sqM) 11/09/22 10:15 Glucose 112 mg/dL (74-99) H 11/09/22 10:[address] Glu mg/dL 117 11/04/22 11:16 Hemoglobin A1c 5.7 % (0.0-6.0) 11/04/22 11:16 Calcium 8.5 mg/dL (8.4-10.2) 11/09/22 10:15 Total Bilirubin 0.5 mg/dL (0.2-1.3) 11/09/22 10:15 AST 22 U/L (14-36) 11/09/22 10:15 ALT 37 U/L (4-34) H 11/09/22 10:15 Alkaline Phosphatase 79 U/L (38-126) 11/09/22 10:15 Total Protein 6.2 g/dL (6.3-8.2) L 11/09/22 10:15 Albumin 3.4 g/dL (3.5-5.0) L 11/09/22 10:15 Triglycerides 149.00 mg/dL (0.00-149.00) 11/04/22 11:16 Cholesterol 178.00 mg/dL (0.00-200.00) 11/04/22 11:16 LDL Cholesterol, Calc 107.7 mg/dL (0.0-131.0) 11/04/22 11:16 VLDL Cholesterol, Calc 29.80 mg/dL (5.00-40.00) 11/04/22 11:16 HDL Cholesterol 40.50 mg/dL (40.00-60.00) 11/04/22 11:16 Cholesterol/HDL Ratio 4.40 Ratio 11/04/22 11:16 TSH 1.830 mIU/L (0.465-4.680) 11/04/22 11:16 Urine Color Yellow 11/05/22 08:54 Urine Appearance Clear (Clear) 11/05/22 08:54 Urine pH 5.5 (5.0-8.0) 11/05/22 08:54 Ur Specific [place] 1.016 (1.001-1.035) 11/05/22 08:54 Urine Protein Negative (Negative) 11/05/22 08:54 Urine Glucose (UA) Negative (Negative) 11/05/22 08:54 Urine Ketones Negative (Negative) 11/05/22 08:54 Urine Blood Negative (Negative) 11/05/22 08:54 Urine Nitrite Negative (Negative) 11/05/22 08:54 Urine Bilirubin Negative (Negative) 11/05/22 08:54 Urine Urobilinogen <2.0 mg/dL (<2.0) 11/05/22 08:54 Ur Leukocyte Esterase Negative (Negative) 11/05/22 08:54 Urine Opiates Screen Negative (Negative) 11/05/22 08:54 Urine Methadone Screen Negative (Negative) 11/05/22 08:54 Ur Propoxyphene Screen Negative (Negative) 11/05/22 08:54 Urine Barbiturates Negative (Negative) 11/05/22 08:54 Ur Phencyclidine Scrn Negative (Negative) 11/05/22 08:54 Ur Amphetamine Screen Negative (Negative) 11/05/22 08:54 U Benzodiazepines Scrn Positive (Negative) A 11/05/22 08:54 Urine Cocaine Screen Negative (Negative) 11/05/22 08:54 U Cannabinoids Screen Negative (Negative) 11/05/22 08:54 Urine Alcohol Negative (Negative) 11/05/22 08:54 Coronavirus (PCR) Not Detected (Not Detectd) 11/03/22 21:34 Assessment Depressive disorder, unspecified Somatic symptoms disorder Generalized anxiety disorder with panic attacks Benzodiazepine dependence Tobacco use disorder Plan: -Patient continues to meet criteria for inpatient psychiatric admission for symptom stabilization and safety. Patient has signed adult voluntary form and medication consent and was placed in patient's chart. -Medications: Klonopin 0.5 mg by mouth 4 times a day for anxiety Pamelor 50 mg by mouth at bedtime for depression/anxiety -NRT - nicotine patch -SW on board for discharge planning. Encouraged the patient to participate in milieu.
[2022-11-13] MEDS: MAGNESIUM OXIDE 400 MG TAB PO SCH (21:25)
[2022-11-13] MEDS: NORTRIPTYLINE 25 MG CAP PO SCH (21:26)
[2022-11-13 21:30] VITALS: RESP 16
[2022-11-14] MEDS: LEVOTHYROXINE 50 MCG TAB PO SCH (06:53)
[2022-11-14] MEDS: NICOTINE 7MG/24HR PATCH TRANSDERM SCH (09:12)
[2022-11-14 09:13] VITALS: BP 126/71; PULSE 96; TEMP 97.5
[2022-11-14] MEDS: clonazePAM 0.5 MG TAB PO SCH (09:14)
[2022-11-14] MEDS: ASCORBIC ACID 500 MG TAB PO SCH (09:14)
[2022-11-14] MEDS: CHOLECALCIFEROL 25 MCG (1000 IU) TABLET PO SCH (09:14)
[2022-11-14] MEDS: CYANOCOBALAMIN 500 MCG TAB PO SCH (09:14)
--- NOTE | 2022-11-14 13:20 | P.DS ---
Providers Date of admission: 11/03/22 20:44 Expected date of discharge: 11/14/22 Attending physician: Estiven Larson MD Consults: 11/03/22 21:03 Consult Physician Routine Consulting Provider: Smitha Pollock Consult Reason/Comments: medical management Do you want consulting provider notified?: Yes Primary care physician: Unruly Madrid - Discharge Diagnosis(es) (1) Generalized anxiety disorder Status: Acute Priority: High (2) Somatic symptom disorder Status: Acute Priority: High (3) Benzodiazepine dependence Status: Chronic Priority: High (4) Tobacco use disorder Status: Chronic Priority: Low Hospital Course: Admission HPI: Initial psychiatric evaluation was completed by Dr. Suarez on 11/04/2022 who wrote: Patient is a , employed, 62-year-old female who was admitted for suicidal ideation without a specific plan. HPI: Patient presented to the hospital on 11/03/22, and per EPS assessment, "pt came in complaining of suicidal ideation without a plan. She states she has been having her medications changed for the last several months and she has not felt like herself. She cries all the time, is starting to not leave her home out of fear of something happening to her once she leaves. She is having panic attacks and states she just wants to go to sleep and not wake up. Her sister and her children are worried about her. Her is with her and states they do not feel she is safe to be by herself. Her sister is flying in from [place] to support her. She just wants to feel like herself again." On my assessment, she reports anxiety, depression, suicidal thoughts with no specific plan. She reports she has been having hot flashes for a long time at night since she started Prestiq. She last felt normal on June 24, 2022. She reports she had started having thoughts of suicide in July 2022. She reports anxiety, foggy, nervous, hot flashes, heart racing at times, legs would go cold. She reports her sleep is fragmented. Patient denies any suicidal or homicidal ideation, intent or plan. At this time patient denies any auditory or visual hallucinations. Patient denies any flight of ideas racing thoughts and increased in goal directed behavior. Patient denies drug or alcohol use. She does smokes 1/2-1ppd of tobacco use. She is going to therapy to work on her life stressors. PAST PSYCHIATRIC HISTORY: Patient states that she has been to see diagnosed with anxiety and depression 34 years ago, along with agoraphobia. She was tried on Paxil, MAOIs, She has been taking Klonopin 2 mg for 34 years. She was started on Prestiq 25 mg daily recently. She was tried on Lexapro (heart racing), Viibryd (low blood pressure), so she went back on Prestiq and Buspar (dizziness). She has also tried Zoloft, MAOIs in the past. Previous psychiatric hospitalizations: [facility] [place] Psychiatric outpatient follow-up: [facility] psychiatry Patient denies any history of suicide attempts in the past. Hospital course: Upon admission to the unit patient was initially presenting as anxious, hyperverbal, and somatic. Patient was however directable and agreeable to commence treatment. Patient got along well with other patients on the unit and followed unit protocol. Patient was compliant with the medications and denied any side effects throughout hospital course. Patient was started on gabapentin, Remeron, and Klonopin. Her Pristiq was discontinued initially. However throughout the hospitalization, the patient continues to remain quite somatic often endorsing vague symptoms of "ear ringing, head squeezing, and generalized fatigue." Because of this, the patient was very hesitant in regards to medication titration or medication changes. Eventually, we agreed to have the patient trial of Pamelor for management of depression and anxiety. There is also evidence that Pamelor may aid in tinnitus. The patient continued to be nervous and somatic expressing significant concern about further titration of her Pamelor. A significant amount of time was spent educating the patient on medications, their side effects, and that their benefit greatly outweighs the risk. Eventually it was decided that the patient has chronically been prescribed Klonopin and this may be contributing to her elevated anxiety. As the patient was provided psychoeducation, the patient developed better understanding on her condition and the role anxiety plays. Furthermore, when observed in the milieu and engaged in individual and group therapies, the patient is often observed in a relaxed position interacting appropriately with staff and peers. On the day of discharge, the patient is not reporting any homicidal ideation, intention, and/or plan. She does report occasional thoughts of suicide however maintains that she is in no imminent risk of harming herself. She reports no intention or plan. She is able to appropriately safety plan acknowledges utilizing crisis numbers are coming back to the hospital if necessary. She is not reporting any auditory or visual hallucinations. She is denying any paranoia or other delusions. On the day of discharge she is not reporting any medical issues or concerns. She denies any chest pain, shortness of breath, palpitations, or akathisia or tardive dyskinesia. She does however continue to report "head squeezing and tinnitus." The patient was counseled at length on importance of medication adherence and appropriate outpatient follow- up. Prior to discharge, family meeting will be arranged by director social to answer any questions and ensure safety. Mental status exam: General Appearance: Patient appears to be stated age is alert, pleasant, and cooperative. Patient is in no acute distress and has fair hygiene and grooming Behavior: Patient is calmly seated without any agitated behavior. Speech: Patient's speech is fluent and nonpressured. Mood/Affect: Patient reports their mood is "I'm feeling pretty good and ready to go home", affect is congruent and euthymic to bright. Suicidality/Homicidality: Patient denies having any suicidal or homicidal ideation intent or plan. Perceptions: Patient denies any auditory or visual hallucinations. Though content/process: There is no evidence of any delusional thought content and thought process is linear and goal-directed. Patient is future oriented. Memory and concentration: AOX3, grossly intact for the purposes of this session. Can spell "WORLD" backwards correctly. Judgment and insight: Improved with guarded prognosis Impression: Generalized anxiety disorder with panic attacks Somatic symptoms disorder Tobacco use disorder Benzodiazepine dependence Plan: -Continue with discharge today as patient has improved and stabilized psychiatrically and is not currently an imminent threat to herself and/or others. Patient has numerous protective factors including supportive family, no prior attempts at suicide, scientologist place again suicide, and future in goal orientation. -Continue medications: Klonopin 0.5 mg by mouth 4 times a day for 7 days Pamelor 50 mg by mouth at bedtime for depression/anxiety -Patient was counseled on the need for medication compliance and appropriate follow-up at mental health and also primary care for medical issues. Patient verbalized understanding and agreed. -Social work to arrange for and conduct family meeting to ensure safety upon discharge and answer any questions/concerns. Social work also to arrange for patients follow up appointments with [facility] for outpatient care along with follow up with primary care provider. -Patient counseled on abstaining from recreational drugs and marijuana and alcohol. Was informed/educated on the adverse effects on their physical and mental health. Patient verbally agreed and understood. Patient was offered substance abuse treatment however declined at this time. -Patient was instructed to return to the hospital or seek immediate medical care if their psychiatric or medical symptoms do worsen or reoccur. -Psychoeducation and supportive therapy provided to patient. Risks and benefits of pharmacological treatment versus the risks and benefits of nontreatment weighed and discussed. Informed consent discussion held. Common side effects of psychotropics discussed such as, but not limited to headache, GI disturbance, sexual dysfunction, movement disorders, sedation, and orthostatic hypotension. Life threatening and blackbox warnings of prescribed medications also discussed. Potential risks of operating a vehicle or heavy machinery discussed with patient at length. Advised on importance of compliance and a reliable and responsible manner. Patient advised to review FDA consumer labeling of all medications prior to taking. Patient verbalized understanding of potential risks, and agrees with current treatment plan. Patient advised to medically contact physician/emergency personnel if any acute changes in condition occur. Vital Signs Temp 97.5 F L 11/14/22 09:12 Pulse 96 11/14/22 09:12 Resp 16 11/13/22 21:27 BP 126/71 11/14/22 09:12 Pulse Ox 98 11/14/22 09:12 FiO2 Laboratory Results WBC 7.4 k/uL (3.8-10.6) 11/09/22 10:15 RBC 4.63 m/uL (3.80-5.40) 11/09/22 10:15 Hgb 15.2 gm/dL (11.4-16.0) 11/09/22 10:15 Hct 46.5 % (34.0-46.0) H 11/09/22 10:15 MCV 100.5 fL (80.0-100.0) H 11/09/22 10:15 MCH 32.8 pg (25.0-35.0) 11/09/22 10:15 MCHC 32.6 g/dL (31.0-37.0) 11/09/22 10:15 RDW 13.5 % (11.5-15.5) 11/09/22 10:15 Plt Count 295 k/uL (150-450) 11/09/22 10:15 MPV 8.8 11/09/22 10:15 Neutrophils % 73 % 11/09/22 10:15 Lymphocytes % 18 % 11/09/22 10:15 Monocytes % 5 % 11/09/22 10:15 Eosinophils % 2 % 11/09/22 10:15 Basophils % 1 % 11/09/22 10:15 Neutrophils # 5.4 k/uL (1.3-7.7) 11/09/22 10:15 Lymphocytes # 1.4 k/uL (1.0-4.8) 11/09/22 10:15 Monocytes # 0.4 k/uL (0-1.0) 11/09/22 10:15 Eosinophils # 0.1 k/uL (0-0.7) 11/09/22 10:15 Basophils # 0.0 k/uL (0-0.2) 11/09/22 10:15 Macrocytosis Slight 11/09/22 10:15 Sodium 139 mmol/L (137-145) 11/09/22 10:15 Potassium 4.2 mmol/L (3.5-5.1) 11/09/22 10:15 Chloride 103 mmol/L (98-107) 11/09/22 10:15 Carbon Dioxide 28 mmol/L (22-30) 11/09/22 10:15 Anion Gap 8 mmol/L 11/09/22 10:15 BUN 15 mg/dL (7-17) 11/09/22 10:15 Creatinine 0.77 mg/dL (0.52-1.04) 11/09/22 10:15 Est GFR (CKD-EPI)AfAm >90 (>60 ml/min/1.73 sqM) 11/09/22 10:15 Est GFR (CKD-EPI)NonAf 82 (>60 ml/min/1.73 sqM) 11/09/22 10:15 Glucose 112 mg/dL (74-99) H 11/09/22 10:[address] Glu mg/dL 117 11/04/22 11:16 Hemoglobin A1c 5.7 % (0.0-6.0) 11/04/22 11:16 Calcium 8.5 mg/dL (8.4-10.2) 11/09/22 10:15 Total Bilirubin 0.5 mg/dL (0.2-1.3) 11/09/22 10:15 AST 22 U/L (14-36) 11/09/22 10:15 ALT 37 U/L (4-34) H 11/09/22 10:15 Alkaline Phosphatase 79 U/L (38-126) 11/09/22 10:15 Total Protein 6.2 g/dL (6.3-8.2) L 11/09/22 10:15 Albumin 3.4 g/dL (3.5-5.0) L 11/09/22 10:15 Triglycerides 149.00 mg/dL (0.00-149.00) 11/04/22 11:16 Cholesterol 178.00 mg/dL (0.00-200.00) 11/04/22 11:16 LDL Cholesterol, Calc 107.7 mg/dL (0.0-131.0) 11/04/22 11:16 VLDL Cholesterol, Calc 29.80 mg/dL (5.00-40.00) 11/04/22 11:16 HDL Cholesterol 40.50 mg/dL (40.00-60.00) 11/04/22 11:16 Cholesterol/HDL Ratio 4.40 Ratio 11/04/22 11:16 TSH 1.830 mIU/L (0.465-4.680) 11/04/22 11:16 Urine Color Yellow 11/05/22 08:54 Urine Appearance Clear (Clear) 11/05/22 08:54 Urine pH 5.5 (5.0-8.0) 11/05/22 08:54 Ur Specific [place] 1.016 (1.001-1.035) 11/05/22 08:54 Urine Protein Negative (Negative) 11/05/22 08:54 Urine Glucose (UA) Negative (Negative) 11/05/22 08:54 Urine Ketones Negative (Negative) 11/05/22 08:54 Urine Blood Negative (Negative) 11/05/22 08:54 Urine Nitrite Negative (Negative) 11/05/22 08:54 Urine Bilirubin Negative (Negative) 11/05/22 08:54 Urine Urobilinogen <2.0 mg/dL (<2.0) 11/05/22 08:54 Ur Leukocyte Esterase Negative (Negative) 11/05/22 08:54 Urine Opiates Screen Negative (Negative) 11/05/22 08:54 Urine Methadone Screen Negative (Negative) 11/05/22 08:54 Ur Propoxyphene Screen Negative (Negative) 11/05/22 08:54 Urine Barbiturates Negative (Negative) 11/05/22 08:54 Ur Phencyclidine Scrn Negative (Negative) 11/05/22 08:54 Ur Amphetamine Screen Negative (Negative) 11/05/22 08:54 U Benzodiazepines Scrn Positive (Negative) A 11/05/22 08:54 Urine Cocaine Screen Negative (Negative) 11/05/22 08:54 U Cannabinoids Screen Negative (Negative) 11/05/22 08:54 Urine Alcohol Negative (Negative) 11/05/22 08:54 Coronavirus (PCR) Not Detected (Not Detectd) 11/03/22 21:34 Allergies Allergy/AdvReac Type Severity Reaction Status Date / Time latex Allergy Severe Anaphylaxis Verified 11/03/22 16:46 levofloxacin [From Levaquin] Allergy Unknown Verified 11/03/22 16:46 Penicillins AdvReac Severe Rash/Hives/Shortness Verified 11/03/22 16:46 of Breath buspirone [From BuSpar] AdvReac dizziness/n Verified 11/03/22 16:46 ausea escitalopram [From Lexapro] AdvReac heart Verified 11/03/22 16:46 racing prednisone AdvReac MAKES HER Verified 11/03/22 16:46 FEEL LIGHTHEADED vilazodone [From Viibryd] AdvReac lowered BP Verified 11/03/22 16:46 Patient Condition at Discharge: Stable Plan - Discharge Summary Discharge Rx Participant: Yes New Discharge Prescriptions: New clonazePAM [KlonoPIN] 0.5 mg PO QID 7 Days #28 tab Nortriptyline [Pamelor] 50 mg PO HS 30 Days #60 cap Continue Levothyroxine Sodium [Synthroid] 50 mcg PO DAILY@0700 Magnesium Malate 500 mg PO HS@2200 Cyanocobalamin (Vitamin B-12) [Vitamin B-12] 1,000 mcg PO DAILY@0800 Cholecalciferol [Vitamin D3 (25 Mcg = 1000 Iu)] 25 mcg PO DAILY@0800 Ascorbic Acid [Vitamin C] 500 mg PO DAILY@0800 Discontinued clonazePAM [KlonoPIN] 0.5 mg PO QID@09,14,, Desvenlafaxine Succinate [Pristiq] 25 mg PO DAILY@0800 Nux Vomica 1 - 2 tab SUBLINGUAL Q2H PRN PRN Reason: Nausea Discharge Medication List Levothyroxine Sodium [Synthroid] 50 mcg PO DAILY@0700 06/14/22 [History] Cholecalciferol [Vitamin D3 (25 Mcg = 1000 Iu)] 25 mcg PO DAILY@0800 08/08/22 [History] Magnesium Malate 500 mg PO HS@2200 08/10/22 [History] Ascorbic Acid [Vitamin C] 500 mg PO DAILY@0800 09/18/22 [History] Cyanocobalamin (Vitamin B-12) [Vitamin B-12] 1,000 mcg PO DAILY@0800 11/01/22 [History] Nortriptyline [Pamelor] 50 mg PO HS 30 Days #60 cap 11/14/22 [Rx] clonazePAM [KlonoPIN] 0.5 mg PO QID 7 Days #28 tab 11/14/22 [Rx] Follow up Appointment(s)/Referral(s): PsychiatryDorothy [Other] - 11/21/22 8:30 am (Sharmila in person please call if not able to maek it ) Unruly Madrid DO [Primary Care Provider] - 1-2 days Patient Instructions/Handouts: How to Stop Smoking (ED), Mood Disorders (DC), Depression (DC) Activity/Diet/Wound Care/Special Instructions: Avoid the use of street drugs and alcohol. Take all medications as prescribed. When you are in need of refills on your medications, please contact your medical provider and/or outpatient psychiatrist to have this done. Please go to scheduled outpatient appointments for aftercare treatment. If symptoms return or become worse, call the crisis line at and/or go to the nearest emergency room for evaluation. Follow up with an Ear, Nose, and Throat specialist of your choosing for ringing in ears. Discharge Disposition: HOME SELF-CARE
== END 2022-11-14 12:05 | disposition home or self-care (01) | DRG 881 ==
LOC: EC 14:36 → 3MHU 20:44
PROVIDERS: ADMIT Psychiatry & Neurology Psychiatry; ATTEND Psychiatry & Neurology Psychiatry
DX: F32.9 Major depressive disorder, single episode, unspecified (principal); R45.851 Suicidal ideations; F13.239 Sedative, hypnotic or anxiolytic dependence with withdrawal, unspecified; F41.0 Panic disorder [episodic paroxysmal anxiety]; F45.9 Somatoform disorder, unspecified; F41.1 Generalized anxiety disorder; N95.1 Menopausal and female climacteric states; H61.21 Impacted cerumen, right ear; H93.19 Tinnitus, unspecified ear; G47.00 Insomnia, unspecified; F17.210 Nicotine dependence, cigarettes, uncomplicated; F40.00 Agoraphobia, unspecified; I10 Essential (primary) hypertension; Z79.890 Hormone replacement therapy; Z79.899 Other long term (current) drug therapy; Z87.440 Personal history of urinary (tract) infections; Z59.86 Financial insecurity; R42 Dizziness and giddiness; Z88.0 Allergy status to penicillin; Z88.1 Allergy status to other antibiotic agents; Z91.040 Latex allergy status
CPT/HCPCS: 80053; 80061; 80306; 81003; 82075; 83036; 84443; 85025; 87635; 93005; 99285

== ENCOUNTER 2022-11-15 13:53 | Emergency (ER) | payer OTHER ==
[2022-11-15 14:12] VITALS: TEMP 97.8
--- NOTE | 2022-11-15 14:49 | ED ---
Psych HPI - General Chief Complaint: Psychiatric Symptoms Stated Complaint: mental health Time Seen by Provider: 11/15/22 14:13 Source: patient, family, RN notes reviewed Mode of arrival: ambulatory Limitations: no limitations - History of Present Illness Initial Comments: This is a 62-year-old female who presents to the emergency department for suicidal ideations. When she woke up this morning, she started to feel kind of out of it, almost like she was floating, and then developed suicidal ideations. She does not have any specific plans, and is unsure why she feels suicidal. She wonders if this may be a side effect to new medications like the Pamelor. Patient was discharged from here yesterday after a 10 day admission to the mental health unit. She is requesting help for more long-term psychiatric care and possible medication adjustments. Denies any homicidal ideations or auditory/visual hallucinations. Denies any fevers, chills, sore throat, cough, dyspnea, chest pain, palpitations, abdominal pain, nausea, vomiting, diarrhea, back pain, or headaches. MD Complaint: suicidal ideation - Related Data Home Medications Medication Instructions Recorded Confirmed Levothyroxine Sodium [Synthroid] 50 mcg PO DAILY@0700 06/14/22 11/15/22 Cholecalciferol [Vitamin D3 (25 25 mcg PO DAILY@0800 08/08/22 11/15/22 Mcg = 1000 Iu)] Magnesium Malate 500 mg PO HS@2200 08/10/22 11/15/22 Ascorbic Acid [Vitamin C] 500 mg PO DAILY@0800 09/18/22 11/15/22 Cyanocobalamin (Vitamin B-12) 1,000 mcg PO DAILY@0800 11/01/22 11/15/22 [Vitamin B-12] clonazePAM [KlonoPIN] See Taper PO QID 11/15/22 11/15/22 Previous Rx's Medication Instructions Recorded Nortriptyline [Pamelor] 50 mg PO HS 30 Days #60 cap 11/14/22 Allergies Allergy/AdvReac Type Severity Reaction Status Date / Time latex Allergy Severe Anaphylaxis Verified 11/15/22 14:41 levofloxacin [From Levaquin] Allergy Unknown Verified 11/15/22 14:41 Penicillins AdvReac Severe Rash/Hives/Shortness Verified 11/15/22 14:41 of Breath buspirone [From BuSpar] AdvReac dizziness/n Verified 11/15/22 14:41 ausea escitalopram [From Lexapro] AdvReac heart Verified 11/15/22 14:41 racing prednisone AdvReac MAKES HER Verified 11/15/22 14:41 FEEL LIGHTHEADED vilazodone [From Viibryd] AdvReac lowered BP Verified 11/15/22 14:41 Review of Systems ROS Statement: Those systems with pertinent positive or pertinent negative responses have been documented in the HPI. ROS Other: All systems not noted in ROS Statement are negative. 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 History of Any Multi-Drug Resistant Organisms: None Reported Past Surgical History: Breast Surgery, Cholecystectomy, Hysterectomy Additional Past Surgical History / Comment(s): KIDNEY URETERS RE-ROUTING D/T FREQUENT UTIS YRS AGO. LUMPECTOMIES OF BREAST-BENIGN, sinus surgery Past Anesthesia/Blood Transfusion Reactions: No Reported Reaction Additional Past Anesthesia/Blood Transfusion Reaction / Comment(s): NEVER RECIEVED BLOOD PRODUCT. Past Psychological History: Anxiety, Depression, Panic Disorder Smoking Status: Current every day smoker Past Alcohol Use History: None Reported Past Drug Use History: None Reported - Past Family History Father Family Medical History: No Reported History Additional Family Medical History / Comment(s): FATHER IS LIVING AND IN HIS 70'S Mother Family Medical History: Cancer Additional Family Medical History / Comment(s): HX OF OVARIAN CA. Brother(s) Family Medical History: Cancer Additional Family Medical History / Comment(s): ESOPHAGUS CANCER General Exam Limitations: no limitations General appearance: alert, in no apparent distress Head exam: Present: atraumatic, normocephalic, normal inspection Respiratory exam: Present: normal lung sounds bilaterally. Absent: respiratory distress, wheezes, rales, rhonchi, stridor Cardiovascular Exam: Present: regular rate, normal rhythm, normal heart sounds. Absent: systolic murmur, diastolic murmur, rubs, gallop, clicks Neurological exam: Present: alert, oriented X3, CN II-XII intact Psychiatric exam: Present: normal affect, normal mood Skin exam: Present: warm, dry, intact, normal color. Absent: rash Course Vital Signs 11/15/22 11/15/22 14:07 16:15 Temperature 97.8 F 97.8 F Pulse Rate 109 H 75 Respiratory 18 17 Rate Blood Pressure 117/78 129/73 O2 Sat by Pulse 97 98 Oximetry Medical Decision Making - Medical Decision Making This is a 62-year-old female who presents to the emergency department for suicidal ideations. Was pt. sent in by a medical professional or institution? @ -No Did you speak to anyone other than the patient for history? @ -No Did you review nursing and triage notes? @ -Yes, and I agree, it is accurate with regards to the patient's symptoms. Were old charts reviewed? @ -No Differential Diagnosis? @ -Differential Mental Health Depression, anxiety, bipolar, psychosis, schizophrenia, borderline personality, situational depression, adjustment disorder, behavioral disorder, brain tumor, malingering, substance abuse, encephalopathy, medication reaction, dementia, hypothyroidism, degenerative neurologic disorder, lupus.... This is not meant to be all-inclusive list EKG interpreted by me (3pts min.)? @ -Not obtained X-rays interpreted by me (1pt min.)? @ -Not obtained CT interpreted by me (1pt min.)? @ -Not obtained U/S interpreted by me (1pt. min.)? @ -Not obtained What testing was considered but not performed? (CT, X-rays, U/S, labs)? Why? @ -None What meds were considered but not given? Why? @ -None Did you discuss the management of the patient with other professionals? @ -Yes, EPS, who advised discharge home with a safety plan and decreasing the Pamelor dosage from 50 to 25 mg. Did you reconcile home meds? @ -No Was smoking cessation discussed for >3mins.? @ -No Was critical care preformed (if so, how long)? @ -No Were there social determinants of health that impacted care today? How? (Homelessness, low income, unemployed, alcoholism, drug addiction, transportation, low edu. Level, literacy, decrease access to med. care, senior care, rehab)? @ -No Was there de-escalation of care discussed even if they declined? (Discuss DNR or withdrawal of care, Hospice)? @ -No What co-morbidities impacted this encounter? (DM, HTN, Smoking, COPD, CAD, Cancer, CVA, Hep., AIDS, mental health diagnosis, sleep apnea, morbid obesity)? @ -LIAM, somatic symptoms disorder Was patient admitted / discharged? @ -Discharged. BAT is 0.0 and the patient was cleared for EPS evaluation. In discussion with EPS, they advised that she has upcoming psychiatric appointments next week and the patient is largely concerned about medication side effects. In discussion with psychiatry, we will decrease her Pamelor from 50 to 25 mg to try and help with reported side effects. Safety plan was created as well. Patient has a very strong support system in place and they feel comfortable taking the patient home. Patient is also in agreement with this plan. Undiagnosed new problem with uncertain prognosis? @ -None Drug Therapy requiring intensive monitoring for toxicity (Heparin, Nitro, Insulin, Cardizem)? @ -None Were any procedures done? @ -None Diagnosis/symptom? @ -LIAM Acute, or Chronic, or Acute on Chronic? @ -Acute on chronic Uncomplicated (without systemic symptoms) or Complicated (systemic symptoms)? @ -Uncomplicated Side effects of treatment? @ -None Exacerbation, Progression, or Severe Exacerbation] @ -Exacerbation Poses a threat to life or bodily function? @ -Yes Return precautions reviewed in depth, the patient is instructed to return to the emergency department with any new, worsening, or concerning symptoms. Patient verbalized understanding. This case was discussed in detail with the attending ED physician, Dr. Vazquez. Presentation, findings, and treatment plan discussed in detail as well. Disposition Clinical Impression: LIAM (generalized anxiety disorder) Disposition: HOME SELF-CARE Instructions (If sedation given, give patient instructions): Generalized Anxiety Disorder (ED) Additional Instructions: Return to the emergency department with any new, worsening, or concerning symptoms. Make sure to follow up for your scheduled psychiatric appointments. Decrease your Pamelor dose to 25 mg as instructed by psychiatry. Is patient prescribed a controlled substance at d/c from ED?: No Referrals: Unruly Madrid DO [Primary Care Provider] - 1-2 days
[2022-11-15 16:15] VITALS: BP 129/73; PULSE 75; RESP 17
== END 2022-11-15 16:17 | disposition home or self-care (01) ==
LOC: EC 13:53
DX: F41.1 Generalized anxiety disorder (principal); E07.9 Disorder of thyroid, unspecified; F41.9 Anxiety disorder, unspecified; F32.A Depression, unspecified; F17.200 Nicotine dependence, unspecified, uncomplicated; Z79.890 Hormone replacement therapy; Z91.040 Latex allergy status; Z88.0 Allergy status to penicillin; Z88.6 Allergy status to analgesic agent; Z88.8 Allergy status to other drugs, medicaments and biological substances; Z88.1 Allergy status to other antibiotic agents
CPT/HCPCS: 82075; 99284

== ENCOUNTER 2022-11-23 03:37 | Emergency (ER) | payer OTHER ==
[2022-11-23 03:44] VITALS: RESP 18; TEMP 98.1
[2022-11-23] MEDS ORDERED: SODIUM CHLORIDE 0.9% 500 ML 500 ML IV STA (04:03)
[2022-11-23] MEDS ORDERED: LORazepam 2 MG/ML INJ IV STA (04:03)
--- NOTE | 2022-11-23 04:04 | ED ---
General Adult HPI - General Source: patient Mode of arrival: ambulatory Limitations: no limitations - History of Present Illness -: days(s) Location: chest Severity scale (1-10): 0 Consistency: constant Improves with: none Worsens with: none Associated Symptoms: shortness of breath Treatments Prior to Arrival: none <Diaz Bell - Last Filed: 11/23/22 07:26> <Baldev Persaud - Last Filed: 11/23/22 10:07> - General Chief complaint: Chest Pain Stated complaint: Increased heart rate,chest pain Time Seen by Provider: 11/23/22 03:50 - History of Present Illness Initial comments: 's patient is a 62-year-old woman who presents here to have evaluation for constellation of symptoms that has developed since she was released from the hospital. The patient had been admitted to the third floor here and discharged with new medication Pamelor. She states that she is not sure that she is tolerating this well. She states that she is feeling shaky all the time. She has times when it feels like her heart is racing and like she cannot catch her breath. Patient currently denying chest pain. No diaphoresis, nausea or vomiting. (Diaz Bell) - Related Data Home Medications Medication Instructions Recorded Confirmed Levothyroxine Sodium [Synthroid] 50 mcg PO DAILY@0700 06/14/22 11/15/22 Cholecalciferol [Vitamin D3 (25 25 mcg PO DAILY@0800 08/08/22 11/15/22 Mcg = 1000 Iu)] Magnesium Malate 500 mg PO HS@2200 08/10/22 11/15/22 Ascorbic Acid [Vitamin C] 500 mg PO DAILY@0800 09/18/22 11/15/22 Cyanocobalamin (Vitamin B-12) 1,000 mcg PO DAILY@0800 11/01/22 11/15/22 [Vitamin B-12] clonazePAM [KlonoPIN] See Taper PO QID 11/15/22 11/15/22 Previous Rx's Medication Instructions Recorded Nortriptyline [Pamelor] 50 mg PO HS 30 Days #60 cap 11/14/22 Allergies Allergy/AdvReac Type Severity Reaction Status Date / Time latex Allergy Severe Anaphylaxis Verified 11/23/22 03:40 levofloxacin [From Levaquin] Allergy Unknown Verified 11/23/22 03:40 Penicillins AdvReac Severe Rash/Hives/Shortness Verified 11/23/22 03:40 of Breath buspirone [From BuSpar] AdvReac dizziness/n Verified 11/23/22 03:40 ausea escitalopram [From Lexapro] AdvReac heart Verified 11/23/22 03:40 racing prednisone AdvReac MAKES HER Verified 11/23/22 03:40 FEEL LIGHTHEADED vilazodone [From Viibryd] AdvReac lowered BP Verified 11/23/22 03:40 Review of Systems ROS Other: All systems not noted in ROS Statement are negative. <Diaz Bell - Last Filed: 11/23/22 07:26> ROS Other: All systems not noted in ROS Statement are negative. <Baldev Persaud - Last Filed: 11/23/22 10:07> ROS Statement: Those systems with pertinent positive or pertinent negative responses have been documented in the HPI. 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 History of Any Multi-Drug Resistant Organisms: None Reported Past Surgical History: Breast Surgery, Cholecystectomy, Hysterectomy Additional Past Surgical History / Comment(s): KIDNEY URETERS RE-ROUTING D/T FREQUENT UTIS YRS AGO. LUMPECTOMIES OF BREAST-BENIGN, sinus surgery Past Anesthesia/Blood Transfusion Reactions: No Reported Reaction Additional Past Anesthesia/Blood Transfusion Reaction / Comment(s): NEVER RECIEVED BLOOD PRODUCT. Past Psychological History: Anxiety, Depression, Panic Disorder Smoking Status: Current every day smoker Past Alcohol Use History: None Reported Past Drug Use History: None Reported - Past Family History Father Family Medical History: No Reported History Additional Family Medical History / Comment(s): FATHER IS LIVING AND IN HIS 70'S Mother Family Medical History: Cancer Additional Family Medical History / Comment(s): HX OF OVARIAN CA. Brother(s) Family Medical History: Cancer Additional Family Medical History / Comment(s): ESOPHAGUS CANCER <Diaz Bell - Last Filed: 11/23/22 07:26> General Exam Limitations: no limitations <Diaz Bell - Last Filed: 11/23/22 07:26> Course Vital Signs 11/23/22 11/23/22 03:40 07:43 Temperature 98.1 F 98.1 F Pulse Rate 89 56 L Respiratory 18 18 Rate Blood Pressure 146/83 115/63 O2 Sat by Pulse 98 97 Oximetry EKG Findings - EKG Results: EKG: interpreted by ERMD, sinus rhythm (Rate 75 bpm), normal axis, normal QRS, normal ST/T - MD, Pacemaker, Normal: Normal tracing: normal tracing <Diaz Bell - Last Filed: 11/23/22 07:26> Medical Decision Making - Lab Data Result diagrams: 11/23/22 04:25 11/23/22 04:25 <Diaz Bell - Last Filed: 11/23/22 07:26> - Lab Data Result diagrams: 11/23/22 04:25 11/23/22 04:25 <Baldev Persaud - Last Filed: 11/23/22 10:07> - Medical Decision Making Patient signed out to me pending results of EPS and psychiatric evaluation. Medically cleared by the prior physician Dr. Bell. EPS evaluated the patient and determined that she is stable for discharge home with a safety plan. They spoke with psychiatry who was in agreement with the plan. I was in agreement this plan. Patient will be discharged home with safety plan at this time. Diagnosis/symptom? @ -Encounter for psychiatric evaluation Acute, or Chronic, or Acute on Chronic? @ -Acute Uncomplicated (without systemic symptoms) or Complicated (systemic symptoms)? @ -Uncomplicated Side effects of treatment? @ -none Exacerbation, Progression, or Severe Exacerbation] @ -no Poses a threat to life or bodily function? @ -no (Baldev Persaud) - Lab Data Lab Results 11/23/22 11/23/22 11/23/22 Range/Units 04:25 04:25 04:25 WBC 6.5 (3.8-10.6) k/uL RBC 4.82 (3.80-5.40) m/uL Hgb 15.5 (11.4-16.0) gm/dL Hct 47.6 H (34.0-46.0) % MCV 98.8 (80.0-100.0) fL MCH 32.2 (25.0-35.0) pg MCHC 32.6 (31.0-37.0) g/dL RDW 13.5 (11.5-15.5) % Plt Count 359 (150-450) k/uL MPV 8.0 Neutrophils % 67 % Lymphocytes % 23 % Monocytes % 5 % Eosinophils % 3 % Basophils % 1 % Neutrophils # 4.3 (1.3-7.7) k/uL Lymphocytes # 1.5 (1.0-4.8) k/uL Monocytes # 0.3 (0-1.0) k/uL Eosinophils # 0.2 (0-0.7) k/uL Basophils # 0.1 (0-0.2) k/uL PT 10.1 (9.0-12.0) sec INR 1.0 (<1.2) APTT 25.5 (22.0-30.0) sec Sodium 138 (137-145) mmol/L Potassium 3.7 (3.5-5.1) mmol/L Chloride 104 (98-107) mmol/L Carbon Dioxide 27 (22-30) mmol/L Anion Gap 7 mmol/L BUN 12 (7-17) mg/dL Creatinine 0.85 (0.52-1.04) mg/dL Est GFR (CKD-EPI)AfAm 84 (>60 ml/min/1.73 sqM) Est GFR (CKD-EPI)NonAf 73 (>60 ml/min/1.73 sqM) Glucose 91 (74-99) mg/dL Calcium 8.8 (8.4-10.2) mg/dL Magnesium 2.2 (1.6-2.3) mg/dL Total Bilirubin 0.6 (0.2-1.3) mg/dL AST 18 (14-36) U/L ALT 19 (4-34) U/L Alkaline Phosphatase 77 (38-126) U/L Troponin I (0.000-0.034) ng/mL Total Protein 6.5 (6.3-8.2) g/dL Albumin 3.6 (3.5-5.0) g/dL TSH 3.540 (0.465-4.680) mIU/L 11/23/22 Range/Units 04:25 WBC (3.8-10.6) k/uL RBC (3.80-5.40) m/uL Hgb (11.4-16.0) gm/dL Hct (34.0-46.0) % MCV (80.0-100.0) fL MCH (25.0-35.0) pg MCHC (31.0-37.0) g/dL RDW (11.5-15.5) % Plt Count (150-450) k/uL MPV Neutrophils % % Lymphocytes % % Monocytes % % Eosinophils % % Basophils % % Neutrophils # (1.3-7.7) k/uL Lymphocytes # (1.0-4.8) k/uL Monocytes # (0-1.0) k/uL Eosinophils # (0-0.7) k/uL Basophils # (0-0.2) k/uL PT (9.0-12.0) sec INR (<1.2) APTT (22.0-30.0) sec Sodium (137-145) mmol/L Potassium (3.5-5.1) mmol/L Chloride (98-107) mmol/L Carbon Dioxide (22-30) mmol/L Anion Gap mmol/L BUN (7-17) mg/dL Creatinine (0.52-1.04) mg/dL Est GFR (CKD-EPI)AfAm (>60 ml/min/1.73 sqM) Est GFR (CKD-EPI)NonAf (>60 ml/min/1.73 sqM) Glucose (74-99) mg/dL Calcium (8.4-10.2) mg/dL Magnesium (1.6-2.3) mg/dL Total Bilirubin (0.2-1.3) mg/dL AST (14-36) U/L ALT (4-34) U/L Alkaline Phosphatase (38-126) U/L Troponin I <0.012 (0.000-0.034) ng/mL Total Protein (6.3-8.2) g/dL Albumin (3.5-5.0) g/dL TSH (0.465-4.680) mIU/L Disposition <Diaz Bell - Last Filed: 11/23/22 07:26> Is patient prescribed a controlled substance at d/c from ED?: No Time of Disposition: 10:00 <Baldev Persaud - Last Filed: 11/23/22 10:07> Clinical Impression: Encounter for psychiatric assessment, Atypical chest pain Disposition: HOME SELF-CARE Condition: Good Instructions (If sedation given, give patient instructions): Chest Pain (ED) Additional Instructions: follow safety plan Referrals: Unruly Madrid DO [Primary Care Provider] - 1-2 days
[2022-11-23 04:41] LABS: Basophils # (A) 0.1 k/uL (0-0.2); Basophils % (A) 1 %; Eosinophils # (A) 0.2 k/uL (0-0.7); Eosinophils % (A) 3 %; HCT 47.6 % (34.0-46.0); HGB 15.5 gm/dL (11.4-16.0); Lymphocytes # (A) 1.5 k/uL (1.0-4.8); Lymphocytes % (A) 23 %; MCH 32.2 pg (25.0-35.0); MCHC 32.6 g/dL (31.0-37.0); MCV 98.8 fL (80.0-100.0); Monocytes # (A) 0.3 k/uL (0-1.0); Monocytes % (A) 5 %; Neutrophils # (A) 4.3 k/uL (1.3-7.7); Neutrophils % (A) 67 %; Platelet Count 359 k/uL (150-450); RBC 4.82 m/uL (3.80-5.40); RDW 13.5 % (11.5-15.5); WBC 6.5 k/uL (3.8-10.6)
[2022-11-23 04:52] LABS: ALT 19 U/L (4-34); AST 18 U/L (14-36); African American GFR (CKD) 84 (>60 ml/min/1.73 sqM); Albumin 3.6 g/dL (3.5-5.0); Alkaline Phosphatase 77 U/L (38-126); Anion Gap 7 mmol/L; Blood Urea Nitrogen 12 mg/dL (7-17); Calcium 8.8 mg/dL (8.4-10.2); Carbon Dioxide 27 mmol/L (22-30); Chloride 104 mmol/L (98-107); Glucose 91 mg/dL (74-99); Magnesium 2.2 mg/dL (1.6-2.3); Non-African American GFR(CKD) 73 (>60 ml/min/1.73 sqM); Potassium 3.7 mmol/L (3.5-5.1); Sodium 138 mmol/L (137-145); Total Bilirubin 0.6 mg/dL (0.2-1.3); Total Protein 6.5 g/dL (6.3-8.2)
--- NOTE | 2022-11-23 05:16 | XR ---
EXAMINATION TYPE: XR chest 1V portable DATE OF EXAM: 11/23/2022 COMPARISON: Chest x-ray June 14, 2022 HISTORY: Chest pain. TECHNIQUE: Single AP portable frontal upright view of the chest is obtained. FINDINGS: There is no suspicious focal air space opacity, pleural effusion, or pneumothorax seen. T he cardiac silhouette size is stable and within normal limits. The osseous structures are intact. O verlying EKG leads are redemonstrated. IMPRESSION: No acute process. No significant change from prior.
[2022-11-23 05:34] LABS: Partial Thromboplastin Time 25.5 sec (22.0-30.0); Prothrombin Time 10.1 sec (9.0-12.0)
--- NOTE | 2022-11-23 07:14 | CT ---
EXAMINATION TYPE: CT brain wo con DATE OF EXAM: 11/23/2022 HISTORY: Headache CT DLP: 1146.9 mGycm. Automated Exposure Control for Dose Reduction was Utilized. TECHNIQUE: CT scan of the head is performed without contrast. COMPARISON: CT brain May 21, 2020. FINDINGS: There is no acute intracranial hemorrhage or midline shift identified. Ventricles and sul ci within normal limits in size for patient's age. Johsnon-white matter differentiation is maintained. The globes are intact and the visualized sinuses are clear. IMPRESSION: No acute intracranial hemorrhage or midline shift. No significant change from prior.
[2022-11-23 10:18] VITALS: BP 124/78; PULSE 62
== END 2022-11-23 10:18 | disposition home or self-care (01) ==
LOC: EC 03:37
DX: Z00.8 Encounter for other general examination (principal); R07.89 Other chest pain; E07.9 Disorder of thyroid, unspecified; F41.9 Anxiety disorder, unspecified; F32.A Depression, unspecified; F17.200 Nicotine dependence, unspecified, uncomplicated; Z79.890 Hormone replacement therapy; Z79.899 Other long term (current) drug therapy; Z91.040 Latex allergy status; Z88.6 Allergy status to analgesic agent; Z88.8 Allergy status to other drugs, medicaments and biological substances
CPT/HCPCS: 82075; 36415; 93005; 80053; 84443; 83735; 84484; 85025; 85610; 85730; 71045; 70450; 99285; 96374; 96361; J2060; 99284

== ENCOUNTER 2022-11-26 05:21 | Emergency (ER) | payer OTHER ==
[2022-11-26 05:30] VITALS: TEMP 97.5
[2022-11-26 05:54] VITALS: PULSE 76
[2022-11-26] MEDS ORDERED: LORazepam 2 MG/ML INJ IV STA ×2 (06:17→08:37)
--- NOTE | 2022-11-26 06:24 | ED ---
Chest Pain HPI - General Chief Complaint: Recheck/Abnormal Lab/Rx Stated Complaint: Hypertension Time Seen by Provider: 11/26/22 05:57 Source: patient, RN notes reviewed Mode of arrival: ambulatory Limitations: no limitations - History of Present Illness Initial Comments: This is a 62-year-old female who presents to the emergency department for multiple complaints. States that she just started taking Lamictal for psychiatric issues a few days ago. The day after starting it, she started to develop chest pain, tingling in her extremities, palpitations, and elevated blood pressure. Prior to this, she was started on Pamelor by the psychiatrist on 3W, which she felt like was working all right for her. She followed up with [facility], who advised eventually discontinuing the Pamelor and having her remain on the Lamictal. She continues to struggle to find medications that work for her to manage her depression. She is not currently feeling suicidal. Denies any fevers, chills, sore throat, cough, dyspnea, abdominal pain, nausea, vomiting, diarrhea, back pain, or headaches. MD Complaint: chest pain - Related Data Home Medications Medication Instructions Recorded Confirmed Levothyroxine Sodium [Synthroid] 50 mcg PO DAILY@0700 06/14/22 11/15/22 Cholecalciferol [Vitamin D3 (25 25 mcg PO DAILY@0800 08/08/22 11/15/22 Mcg = 1000 Iu)] Magnesium Malate 500 mg PO HS@2200 08/10/22 11/15/22 Ascorbic Acid [Vitamin C] 500 mg PO DAILY@0800 09/18/22 11/15/22 Cyanocobalamin (Vitamin B-12) 1,000 mcg PO DAILY@0800 11/01/22 11/15/22 [Vitamin B-12] clonazePAM [KlonoPIN] See Taper PO QID 11/15/22 11/15/22 Previous Rx's Medication Instructions Recorded Nortriptyline [Pamelor] 50 mg PO HS 30 Days #60 cap 11/14/22 Allergies Allergy/AdvReac Type Severity Reaction Status Date / Time latex Allergy Severe Anaphylaxis Verified 11/26/22 05:24 levofloxacin [From Levaquin] Allergy Unknown Verified 11/26/22 05:24 Penicillins AdvReac Severe Rash/Hives/Shortness Verified 11/26/22 05:24 of Breath buspirone [From BuSpar] AdvReac dizziness/n Verified 11/26/22 05:24 ausea escitalopram [From Lexapro] AdvReac heart Verified 11/26/22 05:24 racing prednisone AdvReac MAKES HER Verified 11/26/22 05:24 FEEL LIGHTHEADED vilazodone [From Viibryd] AdvReac lowered BP Verified 11/26/22 05:24 Review of Systems ROS Statement: Those systems with pertinent positive or pertinent negative responses have been documented in the HPI. ROS Other: All systems not noted in ROS Statement are negative. 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 History of Any Multi-Drug Resistant Organisms: None Reported Past Surgical History: Breast Surgery, Cholecystectomy, Hysterectomy Additional Past Surgical History / Comment(s): KIDNEY URETERS RE-ROUTING D/T FREQUENT UTIS YRS AGO. LUMPECTOMIES OF BREAST-BENIGN, sinus surgery Past Anesthesia/Blood Transfusion Reactions: No Reported Reaction Additional Past Anesthesia/Blood Transfusion Reaction / Comment(s): NEVER RECIEVED BLOOD PRODUCT. Past Psychological History: Anxiety, Depression, Panic Disorder Smoking Status: Current every day smoker Past Alcohol Use History: None Reported Past Drug Use History: None Reported - Past Family History Father Family Medical History: No Reported History Additional Family Medical History / Comment(s): FATHER IS LIVING AND IN HIS 70'S Mother Family Medical History: Cancer Additional Family Medical History / Comment(s): HX OF OVARIAN CA. Brother(s) Family Medical History: Cancer Additional Family Medical History / Comment(s): ESOPHAGUS CANCER General Exam Limitations: no limitations General appearance: alert, anxious Head exam: Present: atraumatic, normocephalic, normal inspection Respiratory exam: Present: normal lung sounds bilaterally. Absent: respiratory distress, wheezes, rales, rhonchi, stridor Cardiovascular Exam: Present: regular rate, normal rhythm, normal heart sounds. Absent: systolic murmur, diastolic murmur, rubs, gallop, clicks Neurological exam: Present: alert, oriented X3, CN II-XII intact Psychiatric exam: Present: agitated, anxious Skin exam: Present: warm, dry, intact, normal color. Absent: rash Course Vital Signs 11/26/22 11/26/22 11/26/22 05:24 05:47 09:03 Temperature 97.5 F L Pulse Rate 86 76 76 Respiratory 16 15 18 Rate Blood Pressure 146/81 133/84 126/78 O2 Sat by Pulse 97 97 99 Oximetry Chest Pain MDM - MDM This is a 62-year-old female who presents to the emergency department for chest pain and anxiety. Was pt. sent in by a medical professional or institution? @ -No Did you speak to anyone other than the patient for history? @ -No Did you review nursing and triage notes? @ -Yes, and I agree, it is accurate with regards to the patient's symptoms. Were old charts reviewed? @ -No Differential Diagnosis? @ -Differential Chest Pain: Stable Angina, Unstable Angina, STEMI, NSTEMI Aortic Dissection, Pneumothorax, Musculoskeletal, Esophageal Spasm GERD, Cholecystitis, Pancreatitis, Zoster, this is not meant to be an all-inclusive list. EKG interpreted by me (3pts min.)? @ -EKG interpreted by me demonstrating the following: Sinus rhythm. Ventricular rate 62 beats per minute, KS interval 173 ms, QRS duration 101 ms, QTc 412 ms. X-rays interpreted by me (1pt min.)? @ -Chest x-ray obtained, my interpretation identifies no localized consolidations or infiltrates. CT interpreted by me (1pt min.)? @ -Not obtained U/S interpreted by me (1pt. min.)? @ -Not obtained What testing was considered but not performed? (CT, X-rays, U/S, labs)? Why? @ -None What meds were considered but not given? Why? @ -None Did you discuss the management of the patient with other professionals? @ -Yes, EPS, who advised that they are only able to provide the patient with a list of medication side effects and not make any medication adjustments. Did you reconcile home meds? @ -No Was smoking cessation discussed for >3mins.? @ -No Was critical care preformed (if so, how long)? @ -No Were there social determinants of health that impacted care today? How? (Homelessness, low income, unemployed, alcoholism, drug addiction, transportation, low edu. Level, literacy, decrease access to med. care, retirement, rehab)? @ -No Was there de-escalation of care discussed even if they declined? (Discuss DNR or withdrawal of care, Hospice)? @ -No What co-morbidities impacted this encounter? (DM, HTN, Smoking, COPD, CAD, Cancer, CVA, Hep., AIDS, mental health diagnosis, sleep apnea, morbid obesity)? @ -Psychiatric illness Was patient admitted / discharged? @ -Discharged. Lab work obtained and found to be nonactionable. Chest x-ray revealed no acute process. Symptoms most likely related to the patient's psychiatric illness or medication side effects. Patient's symptoms were controlled with IV fluids and Ativan in the emergency department and the patient felt stable for discharge home. Advised she discontinue the Lamictal in the event this is related and follow-up with her psychiatrist to discuss increasing the Pamelor or other medication changes. I did speak with EPS, who advised that all they are able to do is give her a list of Lamictal side effects and have her follow-up with her psychiatrist. This was discussed with the patient who expresses understanding. Undiagnosed new problem with uncertain prognosis? @ -None Drug Therapy requiring intensive monitoring for toxicity (Heparin, Nitro, Insulin, Cardizem)? @ -None Were any procedures done? @ -None Diagnosis/symptom? @ -Paresthesia, medication side effect Acute, or Chronic, or Acute on Chronic? @ -Acute Uncomplicated (without systemic symptoms) or Complicated (systemic symptoms)? @ -Uncomplicated Side effects of treatment? @ -None Exacerbation, Progression, or Severe Exacerbation] @ -Not applicable Poses a threat to life or bodily function? @ -No Return precautions reviewed in depth, the patient is instructed to return to the emergency department with any new, worsening, or concerning symptoms. Patient verbalized understanding. This case was discussed in detail with the attending ED physician, Dr. Gonzáles. Presentation, findings, and treatment plan discussed in detail as well. Disposition Clinical Impression: Medication side effect, Paresthesia Disposition: HOME SELF-CARE Instructions (If sedation given, give patient instructions): Paresthesia (ED) Additional Instructions: Return to the emergency department with any new, worsening, or concerning symptoms. Stop taking the Lamictal. Discuss with your psychiatrist the possibility of increasing the Pamelor. Follow up with your primary care provider in 1-2 days. Is patient prescribed a controlled substance at d/c from ED?: No Referrals: Unruly Madrid DO [Primary Care Provider] - 1-2 days
[2022-11-26 06:43] LABS: Basophils % (A) 1 %; Eosinophils # (A) 0.1 k/uL (0-0.7); Eosinophils % (A) 2 %; HCT 47.1 % (34.0-46.0); HGB 15.5 gm/dL (11.4-16.0); Lymphocytes # (A) 1.2 k/uL (1.0-4.8); Lymphocytes % (A) 23 %; MCH 32.6 pg (25.0-35.0); MCHC 32.9 g/dL (31.0-37.0); Mean Platelet Volume 8.2; Monocytes # (A) 0.3 k/uL (0-1.0); Monocytes % (A) 5 %; Neutrophils # (A) 3.4 k/uL (1.3-7.7); Neutrophils % (A) 68 %; Platelet Count 383 k/uL (150-450); RBC 4.76 m/uL (3.80-5.40); RDW 13.6 % (11.5-15.5)
--- NOTE | 2022-11-26 06:49 | XR ---
EXAMINATION TYPE: XR chest 2V DATE OF EXAM: 11/26/2022 6:45 AM COMPARISON: Chest radiographs from 11/23/22 TECHNIQUE: XR chest 2V Frontal and lateral views of the chest. CLINICAL INDICATION:Female, 62 years old with history of Chest Pain; FINDINGS: Lungs/Pleura: There is no evidence of pleural effusion, focal consolidation, or pneumothorax. Pulmonary vascularity: Unremarkable. Heart/mediastinum: Cardiomediastinal silhouette is unremarkable. Musculoskeletal: No acute osseous pathology. IMPRESSION: No acute cardiopulmonary disease/process. No significant change from prior.
[2022-11-26 06:54] LABS: ALT 15 U/L (4-34); AST 16 U/L (14-36); African American GFR (CKD) >90 (>60 ml/min/1.73 sqM); Albumin 3.5 g/dL (3.5-5.0); Alkaline Phosphatase 79 U/L (38-126); Anion Gap 8 mmol/L; Blood Urea Nitrogen 9 mg/dL (7-17); Calcium 8.5 mg/dL (8.4-10.2); Carbon Dioxide 25 mmol/L (22-30); Chloride 107 mmol/L (98-107); Glucose 95 mg/dL (74-99); Magnesium 2.3 mg/dL (1.6-2.3); Non-African American GFR(CKD) 85 (>60 ml/min/1.73 sqM); Potassium 3.8 mmol/L (3.5-5.1); Sodium 140 mmol/L (137-145); Total Bilirubin 0.4 mg/dL (0.2-1.3); Total Protein 6.3 g/dL (6.3-8.2)
[2022-11-26 06:56] LABS: Partial Thromboplastin Time 26.1 sec (22.0-30.0); Prothrombin Time 10.8 sec (9.0-12.0)
[2022-11-26 08:16] LABS: Amphetamine Screen,Urine Not Detected (NotDetected); Barbiturate Screen,Urine Not Detected (NotDetected); Benzodiazepines Screen,Urine Not Detected (NotDetected); Cocaine Screen,Urine Not Detected (NotDetected); Methadone Screen, Urine Not Detected (NotDetected); Opiate Screen,Urine Not Detected (NotDetected); Oxycodone Screen, Urine Not Detected (NotDetected); Phencyclidine Screen,Urine Not Detected (NotDetected); Tricyclic Antidepressant,Urine Detected (NotDetected); Urn Cannabinoid Scrn Not Detected (NotDetected)
[2022-11-26 09:04] VITALS: BP 126/78; RESP 18
== END 2022-11-26 09:03 | disposition home or self-care (01) ==
LOC: EC 05:21
DX: I10 Essential (primary) hypertension (principal); T42.6X5A Adverse effect of other antiepileptic and sedative-hypnotic drugs, initial encounter; R20.2 Paresthesia of skin; E07.9 Disorder of thyroid, unspecified; F41.9 Anxiety disorder, unspecified; F32.A Depression, unspecified; F17.200 Nicotine dependence, unspecified, uncomplicated; Z79.890 Hormone replacement therapy; Z88.0 Allergy status to penicillin; Z88.6 Allergy status to analgesic agent; Z88.8 Allergy status to other drugs, medicaments and biological substances; Z91.040 Latex allergy status
CPT/HCPCS: 36415; 93005; 85379; 80053; 84443; 83735; 84484; 85025; 85610; 85730; 80306; 71046; 99284; 96374; 96375; J2060

== ENCOUNTER 2022-12-26 07:20 | Emergency (ER) | payer OTHER ==
[2022-12-26 07:27] VITALS: TEMP 98
[2022-12-26] MEDS ORDERED: SODIUM CHLORIDE 0.9% 1,000 ML IV ONE (07:48)
[2022-12-26] MEDS ORDERED: MECLIZINE 12.5 MG TAB PO STA (07:48)
--- NOTE | 2022-12-26 08:16 | ED ---
General Adult HPI - General Chief complaint: Headache Stated complaint: headache, vision issues Time Seen by Provider: 12/26/22 07:26 Source: patient, RN notes reviewed, old records reviewed Mode of arrival: ambulatory Limitations: no limitations - History of Present Illness Initial comments: 62-year-old female presenting for evaluation dizziness, headache, and twitching eyes sensation. Patient denies chest pain. Denies focal numbness or weakness. She does report some bilateral extremity tingling. No vomiting. No fever. Headache is bitemporal. She was recently started on new antidepressant about 3 weeks ago. She's had several ER visits over the past 2 months with varied complaints including dizziness, chest pain. - Related Data Home Medications Medication Instructions Recorded Confirmed Levothyroxine Sodium [Synthroid] 50 mcg PO DAILY@0700 06/14/22 12/26/22 Cholecalciferol [Vitamin D3 (25 25 mcg PO DAILY@0800 08/08/22 12/26/22 Mcg = 1000 Iu)] Magnesium Malate 500 mg PO HS@2200 08/10/22 12/26/22 Ascorbic Acid [Vitamin C] 500 mg PO DAILY@0800 09/18/22 12/26/22 Cyanocobalamin (Vitamin B-12) 1,000 mcg PO DAILY@0800 11/01/22 12/26/22 [Vitamin B-12] clonazePAM [KlonoPIN] 0.5 mg PO QID@08,12,18,20 11/15/22 12/26/22 Aspirin EC [Ecotrin Low Dose] 81 mg PO DAILY 12/26/22 12/26/22 Sertraline [Zoloft] 25 mg PO DAILY 12/26/22 12/26/22 Allergies Allergy/AdvReac Type Severity Reaction Status Date / Time latex Allergy Severe Anaphylaxis Verified 12/26/22 09:49 levofloxacin [From Levaquin] Allergy Unknown Verified 12/26/22 09:49 Penicillins AdvReac Severe Rash/Hives/Shortness Verified 12/26/22 09:49 of Breath buspirone [From BuSpar] AdvReac dizziness/n Verified 12/26/22 09:49 ausea escitalopram [From Lexapro] AdvReac heart Verified 12/26/22 09:49 racing prednisone AdvReac MAKES HER Verified 12/26/22 09:49 FEEL LIGHTHEADED vilazodone [From Viibryd] AdvReac lowered BP Verified 12/26/22 09:49 Review of Systems ROS Statement: Those systems with pertinent positive or pertinent negative responses have been documented in the HPI. ROS Other: All systems not noted in ROS Statement are negative. 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 History of Any Multi-Drug Resistant Organisms: None Reported Past Surgical History: Breast Surgery, Cholecystectomy, Hysterectomy Additional Past Surgical History / Comment(s): KIDNEY URETERS RE-ROUTING D/T FREQUENT UTIS YRS AGO. LUMPECTOMIES OF BREAST-BENIGN, sinus surgery Past Anesthesia/Blood Transfusion Reactions: No Reported Reaction Additional Past Anesthesia/Blood Transfusion Reaction / Comment(s): NEVER RECIEVED BLOOD PRODUCT. Past Psychological History: Anxiety, Depression, Panic Disorder Smoking Status: Current every day smoker Past Alcohol Use History: None Reported Past Drug Use History: None Reported - Past Family History Father Family Medical History: No Reported History Additional Family Medical History / Comment(s): FATHER IS LIVING AND IN HIS 70'S Mother Family Medical History: Cancer Additional Family Medical History / Comment(s): HX OF OVARIAN CA. Brother(s) Family Medical History: Cancer Additional Family Medical History / Comment(s): ESOPHAGUS CANCER General Exam Limitations: no limitations General appearance: alert, in no apparent distress Head exam: Present: atraumatic, normocephalic Eye exam: Present: normal appearance, PERRL, EOMI. Absent: scleral icterus, nystagmus Neck exam: Present: normal inspection. Absent: tenderness, meningismus Respiratory exam: Present: normal lung sounds bilaterally. Absent: respiratory distress Cardiovascular Exam: Present: regular rate, normal rhythm GI/Abdominal exam: Present: soft. Absent: distended, tenderness Extremities exam: Present: normal inspection, normal capillary refill. Absent: pedal edema Back exam: Present: normal inspection Neurological exam: Present: alert, oriented X3, CN II-XII intact, other (No limb ataxia, no nystagmus). Absent: motor sensory deficit Psychiatric exam: Present: anxious Skin exam: Present: warm, dry, intact. Absent: cyanosis, diaphoretic Course Vital Signs 12/26/22 07:21 Temperature 98.0 F Pulse Rate 83 Respiratory 16 Rate Blood Pressure 125/85 O2 Sat by Pulse 95 Oximetry - Reevaluation(s) Reevaluation #1: 12/26/22 09:34 CT negative, labs unremarkable, did reevaluate the patient and she was voicing suicidal ideation which is been ongoing. She is anxious and depressed. She will be evaluated by EPS, medically cleared at this time. Medical Decision Making - Medical Decision Making Was pt. sent in by a medical professional or institution (, PA, DAIRY SPECIALIST, urgent care, hospital, or usp...) When possible be specific @ -No Did you speak to anyone other than the patient for history (EMS, parent, family, police, friend...)? What history was obtained from this source @ -No Did you review nursing and triage notes (agree or disagree)? Why? @ -I reviewed and agree with nursing and triage notes Were old charts reviewed (outside hosp., previous admission, EMS record, old EKG, old radiological studies, urgent care reports/EKG's, usp records)? Report findings @ -No old charts were reviewed Differential Diagnosis (chest pain, altered mental status, abdominal pain women, abdominal pain men, vaginal bleeding, weakness, fever, dyspnea, syncope, headache, dizziness, GI bleed, back pain, seizure, CVA, palpatations, mental health, musculoskeletal)? @ -[Differential Mental Health Depression, anxiety, bipolar, psychosis, schizophrenia, borderline personality, situational depression, adjustment disorder, behavioral disorder, brain tumor, malingering, substance abuse, encephalopathy, medication reaction, dementia, hypothyroidism, degenerative neurologic disorder, lupus.... This is not meant to be all-inclusive list EKG interpreted by me (3pts min.). @EKG: Sinus rhythm rate of 64, LA interval 158, QRS duration 101, QTC [address] segment elevation. X-rays interpreted by me (1pt min.). @ -None done CT interpreted by me (1pt min.). @ -[CT negative for intracranial hemorrhage or mass effect U/S interpreted by me (1pt. min.). @ -None done What testing was considered but not performed or refused? (CT, X-rays, U/S, labs)? Why? @ -None What meds were considered but not given or refused? Why? @ -None Did you discuss the management of the patient with other professionals (professionals i.e. DrHenry, PA, DAIRY SPECIALIST, lab, RT, psych nurse, social worker assistant, food and beverage intern, t eacher, aviation ordnance officer, therapeutic case manager)? Give summary @ -EPS nurse Was smoking cessation discussed for >3mins.? @ -No Was critical care preformed (if so, how long)? @ -No Were there social determinants of health that impacted care today? How? (Homelessness, low income, unemployed, alcoholism, drug addiction, transportation, low edu. Level, literacy, decrease access to med. care, fci, rehab)? @ -No Was there de-escalation of care discussed even if they declined (Discuss DNR or withdrawal of care, Hospice)? DNR status @ -No What co-morbidities impacted this encounter? (DM, HTN, Smoking, COPD, CAD, Cancer, CVA, ARF, Chemo, Hep., AIDS, mental health diagnosis, sleep apnea, morbid obesity)? @ -None Was patient admitted / discharged? Hospital course, mention meds given and route, prescriptions, significant lab abnormalities, going to OR and other pertinent info. @ -62-year-old female presenting with headache, dizziness, and also suicidal ideation. Patient medically cleared, with left her testing, EKG, CAT scan. Medical workup is negative. She is evaluated by EPS and felt to be safe for discharge. She does sign a safety plan she has multiple outpatient referrals. Return parameters discussed. Undiagnosed new problem with uncertain prognosis? @ -No Drug Therapy requiring intensive monitoring for toxicity (Heparin, Nitro, Insulin, Cardizem)? @ -No Were any procedures done? @ -No Diagnosis/symptom? @ -[Depression, suicidal ideation Acute, or Chronic, or Acute on Chronic? @ -[Acute Uncomplicated (without systemic symptoms) or Complicated (systemic symptoms)? @ -default Side effects of treatment? @ -No Exacerbation, Progression, or Severe Exacerbation? @ -No Poses a threat to life or bodily function? How? (Chest pain, [place], [place], pneumonia, PE, COPD, DKA, ARF, appy, cholecystitis, CVA, Diverticulitis, Homicidal, Suicidal, threat to staff... and all critical care pts) @ -[Yes, self-harm - Lab Data Result diagrams: 12/26/22 08:13 12/26/22 08:13 Lab Results 12/26/22 12/26/22 12/26/22 Range/Units 08:13 08:13 09:45 WBC 10.6 (3.8-10.6) k/uL RBC 4.83 (3.80-5.40) m/uL Hgb 15.6 (11.4-16.0) gm/dL Hct 47.4 H (34.0-46.0) % MCV 98.0 (80.0-100.0) fL MCH 32.4 (25.0-35.0) pg MCHC 33.0 (31.0-37.0) g/dL RDW 14.1 (11.5-15.5) % Plt Count 375 (150-450) k/uL MPV 8.5 Neutrophils % 82 % Lymphocytes % 12 % Monocytes % 3 % Eosinophils % 2 % Basophils % 0 % Neutrophils # 8.7 H (1.3-7.7) k/uL Lymphocytes # 1.3 (1.0-4.8) k/uL Monocytes # 0.3 (0-1.0) k/uL Eosinophils # 0.2 (0-0.7) k/uL Basophils # 0.0 (0-0.2) k/uL Sodium 140 (137-145) mmol/L Potassium 3.9 (3.5-5.1) mmol/L Chloride 108 H (98-107) mmol/L Carbon Dioxide 28 (22-30) mmol/L Anion Gap 4 mmol/L BUN 8 (7-17) mg/dL Creatinine 0.63 (0.52-1.04) mg/dL Est GFR (CKD-EPI)AfAm >90 (>60 ml/min/1.73 sqM) Est GFR (CKD-EPI)NonAf >90 (>60 ml/min/1.73 sqM) Glucose 107 H (74-99) mg/dL Calcium 8.8 (8.4-10.2) mg/dL Total Bilirubin 0.6 (0.2-1.3) mg/dL AST 17 (14-36) U/L ALT 17 (4-34) U/L Alkaline Phosphatase 75 (38-126) U/L Total Protein 6.6 (6.3-8.2) g/dL Albumin 3.7 (3.5-5.0) g/dL Urine Opiates Screen Not Detected (NotDetected) Ur Oxycodone Screen Not Detected (NotDetected) Urine Methadone Screen Not Detected (NotDetected) Ur Propoxyphene Screen Not Detected (NotDetected) Ur Barbiturates Screen Not Detected (NotDetected) U Tricyclic Antidepress Not Detected (NotDetected) Ur Phencyclidine Scrn Not Detected (NotDetected) Ur Amphetamines Screen Not Detected (NotDetected) U Methamphetamines Scrn Not Detected (NotDetected) U Benzodiazepines Scrn Not Detected (NotDetected) Urine Cocaine Screen Not Detected (NotDetected) U Marijuana (THC) Screen Not Detected (NotDetected) Disposition Clinical Impression: Anxiety, Depression Disposition: HOME SELF-CARE Condition: Fair Instructions (If sedation given, give patient instructions): Anxiety (ED), Depression (ED) Is patient prescribed a controlled substance at d/c from ED?: No Referrals: Unruly Madrid DO [Primary Care Provider] - 1-2 days Time of Disposition: 12:58
[2022-12-26 08:33] LABS: Basophils % (A) 0 %; Eosinophils # (A) 0.2 k/uL (0-0.7); Eosinophils % (A) 2 %; HCT 47.4 % (34.0-46.0); HGB 15.6 gm/dL (11.4-16.0); Lymphocytes # (A) 1.3 k/uL (1.0-4.8); Lymphocytes % (A) 12 %; MCH 32.4 pg (25.0-35.0); Mean Platelet Volume 8.5; Monocytes # (A) 0.3 k/uL (0-1.0); Monocytes % (A) 3 %; Neutrophils # (A) 8.7 k/uL (1.3-7.7); Neutrophils % (A) 82 %; Platelet Count 375 k/uL (150-450); RBC 4.83 m/uL (3.80-5.40); RDW 14.1 % (11.5-15.5); WBC 10.6 k/uL (3.8-10.6)
[2022-12-26 08:44] LABS: ALT 17 U/L (4-34); AST 17 U/L (14-36); African American GFR (CKD) >90 (>60 ml/min/1.73 sqM); Albumin 3.7 g/dL (3.5-5.0); Alkaline Phosphatase 75 U/L (38-126); Anion Gap 4 mmol/L; Blood Urea Nitrogen 8 mg/dL (7-17); Calcium 8.8 mg/dL (8.4-10.2); Carbon Dioxide 28 mmol/L (22-30); Chloride 108 mmol/L (98-107); Glucose 107 mg/dL (74-99); Non-African American GFR(CKD) >90 (>60 ml/min/1.73 sqM); Potassium 3.9 mmol/L (3.5-5.1); Sodium 140 mmol/L (137-145); Total Bilirubin 0.6 mg/dL (0.2-1.3); Total Protein 6.6 g/dL (6.3-8.2)
--- NOTE | 2022-12-26 09:10 | CT ---
EXAMINATION TYPE: CT brain wo con CT DLP: 1098.4 mGycm, Automated exposure control for dose reduction was used. DATE OF EXAM: 12/26/2022 8:59 AM COMPARISON: Prior CT Brain from 11/23/22. CLINICAL INDICATION:Female, 62 years old with history of CHAMORRO, Headache-frontal and top of head TECHNIQUE: Brain: Multiple axial CT images of the brain were obtained without IV contrast. Coronal and sagittal reformats reviewed. FINDINGS: Brain: Extra-axial spaces: No abnormal extra-axial fluid collections. Ventricular system: Within normal limits Cerebral parenchyma: No acute intraparenchymal hemorrhage or mass effect. The clements-white junction is well differentiated. Cerebellum: Unremarkable. Mass effect: No evidence of midline shift. Intracranial vasculature: Atherosclerotic calcifications of the intracranial vessels. Soft tissues: Normal. Calvarium/osseous structures: No depressed skull fracture. Paranasal sinuses and mastoid air cells: Clear Visualized orbits: Orbital contents are intact. IMPRESSION: No acute intracranial process or significant change from prior.
[2022-12-26] MEDS ORDERED: LORazepam 2 MG/ML INJ IV STA (09:28)
[2022-12-26 10:37] LABS: Amphetamine Screen,Urine Not Detected (NotDetected); Barbiturate Screen,Urine Not Detected (NotDetected); Benzodiazepines Screen,Urine Not Detected (NotDetected); Cocaine Screen,Urine Not Detected (NotDetected); Methadone Screen, Urine Not Detected (NotDetected); Opiate Screen,Urine Not Detected (NotDetected); Oxycodone Screen, Urine Not Detected (NotDetected); Phencyclidine Screen,Urine Not Detected (NotDetected); Tricyclic Antidepressant,Urine Not Detected (NotDetected); Urn Cannabinoid Scrn Not Detected (NotDetected)
[2022-12-26 13:27] VITALS: BP 127/84; PULSE 82; RESP 20
== END 2022-12-26 13:29 | disposition home or self-care (01) ==
LOC: EC 07:20
DX: F41.9 Anxiety disorder, unspecified (principal); F32.A Depression, unspecified; E07.9 Disorder of thyroid, unspecified; F17.200 Nicotine dependence, unspecified, uncomplicated; Z91.040 Latex allergy status; Z88.1 Allergy status to other antibiotic agents; Z88.0 Allergy status to penicillin; Z88.8 Allergy status to other drugs, medicaments and biological substances; Z79.890 Hormone replacement therapy; Z79.899 Other long term (current) drug therapy; Z79.82 Long term (current) use of aspirin
CPT/HCPCS: 82075; 36415; 93005; 80053; 85025; 80306; 70450; 99284; 96374; 96361; J2060

== ENCOUNTER 2024-12-01 12:15 | Inpatient (IN) | payer MEDICARE, OTHER ==
[2024-12-01 13:58] LABS: Appearance,Urine Cloudy (Clear); Bacteria,Urine Moderate /hpf; Bilirubin,Urine Negative (Negative); Blood,Urine Negative (Negative); Calcium Oxalate Crystals,Urine Many /hpf; Color,Urine Yellow; Glucose,Urine (UA) Negative (Negative); Ketones,Urine Negative (Negative); Leukocyte Esterase,Urine Negative (Negative); Mucus,Urine Moderate /hpf; Nitrite,Urine Negative (Negative); PH, Urine 5.5 (5.0-8.0); Protein,Urine Negative (Negative); RBC,Urine 6 /hpf (0-5); Specific Gravity,Urine 1.028 (1.001-1.035); Squamous Epithelial Cell,Urine 7 /hpf (0-4); WBC,Urine 5 /hpf (0-5)
[2024-12-01 14:08] LABS: Amphetamine Screen,Urine Not Detected (NotDetected); Barbiturate Screen,Urine Not Detected (NotDetected); Benzodiazepines Screen,Urine Detected (NotDetected); Cocaine Screen,Urine Not Detected (NotDetected); Methadone Screen, Urine Not Detected (NotDetected); Opiate Screen,Urine Not Detected (NotDetected); Oxycodone Screen, Urine Not Detected (NotDetected); Phencyclidine Screen,Urine Not Detected (NotDetected); Tricyclic Antidepressant,Urine Not Detected (NotDetected); Urn Cannabinoid Scrn Not Detected (NotDetected)
[2024-12-01 14:52] LABS: Basophils # (A) 0.04 10*3/uL (0.00-0.10); Basophils % (A) 0.6 %; Eosinophils # (A) 0.09 10*3/uL (0.04-0.35); Eosinophils % (A) 1.3 %; HCT 45.4 % (37.2-46.3); HGB 15.1 g/dL (12.0-15.0); Lymphocytes # (A) 1.33 10*3/uL (0.90-5.00); Lymphocytes % (A) 18.7 %; MCH 33.5 pg (27.0-32.0); MCHC 33.3 g/dL (32.0-37.0); MCV 100.7 fL (80.0-97.0); Mean Platelet Volume 10.5 fL (9.5-12.2); Monocytes # (A) 0.45 10*3/uL (0.20-1.00); Monocytes % (A) 6.3 %; Platelet Count 329 10*3/uL (140-440); RBC 4.51 10*6/uL (4.10-5.20); RDW 14.7 % (11.5-14.5); WBC 7.12 10*3/uL (4.50-10.00)
[2024-12-01 14:56] LABS: ALT 16 U/L (4-34); AST 18 U/L (14-36); African American GFR (CKD) >90 (>60 ml/min/1.73 sqM); Albumin 3.6 g/dL (3.5-5.0); Alkaline Phosphatase 94 U/L (38-126); Anion Gap 5 mmol/L; Blood Urea Nitrogen 12 mg/dL (7-17); Calcium 9.1 mg/dL (8.4-10.2); Carbon Dioxide 28 mmol/L (22-30); Chloride 107 mmol/L (98-107); Glucose 110 mg/dL (74-99); Non-African American GFR(CKD) 81 (>60 ml/min/1.73 sqM); Potassium 3.9 mmol/L (3.5-5.1); Sodium 140 mmol/L (137-145); Total Bilirubin 0.4 mg/dL (0.2-1.3); Total Protein 6.3 g/dL (6.3-8.2)
--- NOTE | 2024-12-01 15:10 | ED ---
Psych HPI - General Chief Complaint: Psychiatric Symptoms Stated Complaint: Mental health Time Seen by Provider: 12/01/24 12:22 Source: patient, family, RN notes reviewed Mode of arrival: ambulatory Limitations: no limitations - History of Present Illness Initial Comments: 64-year-old female presents to the emergency department with complaint of depression, anxiety, suicide nation. Patient states has been having worsening symptoms states that she has thoughts of harming herself. She denies any self- harm. Patient denies any illicit drug use no alcohol abuse she states that she is on psychiatric medications with no relief of symptoms. - Related Data Home Medications Medication Instructions Recorded Confirmed Levothyroxine Sodium [Synthroid] 50 mcg PO DAILY@0700 06/14/22 01/01/23 Cholecalciferol [Vitamin D3 (25 25 mcg PO DAILY@0800 08/08/22 01/01/23 Mcg = 1000 Iu)] Magnesium Malate 500 mg PO HS@2200 08/10/22 01/01/23 Ascorbic Acid [Vitamin C] 500 mg PO DAILY@0800 09/18/22 01/01/23 Cyanocobalamin (Vitamin B-12) 1,000 mcg PO DAILY@0800 11/01/22 01/01/23 [Vitamin B-12] clonazePAM [KlonoPIN] 0.5 mg PO QID@08,12,18,20 11/15/22 01/01/23 Aspirin EC [Ecotrin Low Dose] 81 mg PO DAILY 12/26/22 01/01/23 Previous Rx's Medication Instructions Recorded Nortriptyline [Pamelor] 50 mg PO HS 15 Days #30 cap 01/15/23 OLANZapine [ZyPREXA] 2.5 mg PO HS 15 Days #15 tab 01/15/23 Allergies Allergy/AdvReac Type Severity Reaction Status Date / Time latex Allergy Severe Anaphylaxis Verified 12/01/24 12:25 levofloxacin [From Levaquin] Allergy Unknown Verified 12/01/24 12:25 Penicillins AdvReac Severe Rash/Hives/Shortness Verified 12/01/24 12:25 of Breath buspirone [From BuSpar] AdvReac dizziness/n Verified 12/01/24 12:25 ausea escitalopram [From Lexapro] AdvReac heart Verified 12/01/24 12:25 racing prednisone AdvReac MAKES HER Verified 12/01/24 12:25 FEEL LIGHTHEADED vilazodone [From Viibryd] AdvReac lowered BP Verified 12/01/24 12:25 Review of Systems ROS Statement: Those systems with pertinent positive or pertinent negative responses have been documented in the HPI. ROS Other: All systems not noted in ROS Statement are negative. 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 History of Any Multi-Drug Resistant Organisms: None Reported Past Surgical History: Breast Surgery, Cholecystectomy, Hysterectomy Additional Past Surgical History / Comment(s): KIDNEY URETERS RE-ROUTING D/T FREQUENT UTIS YRS AGO. LUMPECTOMIES OF BREAST-BENIGN, sinus surgery Past Anesthesia/Blood Transfusion Reactions: No Reported Reaction Additional Past Anesthesia/Blood Transfusion Reaction / Comment(s): NEVER RECIEVED BLOOD PRODUCT. Past Psychological History: Anxiety, Depression, Panic Disorder Smoking Status: Current every day smoker Past Alcohol Use History: None Reported Past Drug Use History: None Reported - Past Family History Father Family Medical History: No Reported History Additional Family Medical History / Comment(s): FATHER IS LIVING AND IN HIS 70'S Mother Family Medical History: Cancer Additional Family Medical History / Comment(s): HX OF OVARIAN CA. Brother(s) Family Medical History: Cancer Additional Family Medical History / Comment(s): ESOPHAGUS CANCER General Exam Limitations: no limitations General appearance: alert, in no apparent distress Head exam: Present: atraumatic, normocephalic, normal inspection Eye exam: Present: normal appearance, PERRL, EOMI. Absent: scleral icterus, conjunctival injection, periorbital swelling ENT exam: Present: normal exam, normal oropharynx, mucous membranes moist Neck exam: Present: normal inspection, full ROM. Absent: tenderness, men ingismus, lymphadenopathy Respiratory exam: Present: normal lung sounds bilaterally. Absent: respiratory distress, wheezes, rales, rhonchi, stridor Cardiovascular Exam: Present: regular rate, normal rhythm, normal heart sounds. Absent: systolic murmur, diastolic murmur, rubs, gallop, clicks GI/Abdominal exam: Present: soft, normal bowel sounds. Absent: distended, tenderness, guarding, rebound, rigid Neurological exam: Present: alert, oriented X3, reflexes normal. Absent: motor sensory deficit Skin exam: Present: warm, dry, intact, normal color. Absent: rash Course Vital Signs 12/01/24 12/01/24 12:21 15:25 Temperature 97.8 F Pulse Rate 92 Respiratory 18 16 Rate Blood Pressure 146/85 O2 Sat by Pulse 100 Oximetry Medical Decision Making - Medical Decision Making Was pt. sent in by a medical professional or institution (, PA, UNIT MANAGER CONVENIENCE STORES, urgent care, hospital, or fci...) When possible be specific @ -No Did you speak to anyone other than the patient for history (EMS, parent, family, police, friend...)? What history was obtained from this source @ -No Did you review nursing and triage notes (agree or disagree)? Why? @ -I reviewed and agree with nursing and triage notes Were old charts reviewed (outside hosp., previous admission, EMS record, old EKG, old radiological studies, urgent care reports/EKG's, fci records)? Report findings @ -No old charts were reviewed Differential Diagnosis (chest pain, altered mental status, abdominal pain women, abdominal pain men, vaginal bleeding, weakness, fever, dyspnea, syncope, headache, dizziness, GI bleed, back pain, seizure, CVA, palpatations, mental health, musculoskeletal)? @ -Differential Mental Health Depression, anxiety, bipolar, psychosis, schizophrenia, borderline personality, situational depression, adjustment disorder, behavioral disorder, brain tumor, malingering, substance abuse, encephalopathy, medication reaction, dementia, hypothyroidism, degenerative neurologic disorder, lupus.... This is not meant to be all-inclusive list EKG interpreted by me (3pts min.). @ -None none X-rays interpreted by me (1pt min.). @ -None done CT interpreted by me (1pt min.). @ -None done U/S interpreted by me (1pt. min.). @ -None done What testing was considered but not performed or refused? (CT, X-rays, U/S, labs)? Why? @ -None What meds were considered but not given or refused? Why? @ -None Did you discuss the management of the patient with other professionals (professionals i.e. , PA, UNIT MANAGER CONVENIENCE STORES, lab, RT, psych nurse, social work manager, drapery counselor, teacher, control systems drafting officer, caser shoe parts)? Give summary @ -EPS evaluated patient psychiatrist recommends inpatient treatment Was smoking cessation discussed for >3mins.? @ -No Was critical care preformed (if so, how long)? @ -No Were there social determinants of health that impacted care today? How? (Homelessness, low income, unemployed, alcoholism, drug addiction, transportation, low edu. Level, literacy, decrease access to med. care, senior care, rehab)? @ -No Was there de-escalation of care discussed even if they declined (Discuss DNR or withdrawal of care, Hospice)? DNR status @ -No What co-morbidities impacted this encounter? (DM, HTN, Smoking, COPD, CAD, Cancer, CVA, ARF, Chemo, Hep., AIDS, mental health diagnosis, sleep apnea, morbid obesity)? @ -None Was patient admitted / discharged? Hospital course, mention meds given and route, prescriptions, significant lab abnormalities, going to OR and other pertinent info. @ -Admit to 3 W. Undiagnosed new problem with uncertain prognosis? @ -No Drug Therapy requiring intensive monitoring for toxicity (Heparin, Nitro, Insulin, Cardizem)? @ -No Were any procedures done? @ -No Diagnosis/symptom? @ -Depression anxiety suicidal ideation Acute, or Chronic, or Acute on Chronic? @ -Acute Uncomplicated (without systemic symptoms) or Complicated (systemic symptoms)? @ -Complicated Side effects of treatment? @ -No Exacerbation, Progression, or Severe Exacerbation? @ -No Poses a threat to life or bodily function? How? (Chest pain, [place], [place], pneumonia, PE, COPD, DKA, ARF, appy, cholecystitis, CVA, Diverticulitis, Homicidal, Suicidal, threat to staff... and all critical care pts) @ -Yes suicidal - Lab Data Result diagrams: 12/01/24 14:25 12/01/24 14:25 Lab Results 12/01/24 12/01/24 12/01/24 Range/Units 12:57 14:25 14:25 WBC 7.12 (4.50-10.00) 10*3/uL RBC 4.51 (4.10-5.20) 10*6/uL Hgb 15.1 H (12.0-15.0) g/dL Hct 45.4 (37.2-46.3) % MCV 100.7 H (80.0-97.0) fL MCH 33.5 H (27.0-32.0) pg MCHC 33.3 (32.0-37.0) g/dL Plt Count 329 (140-440) 10*3/uL MPV 10.5 (9.5-12.2) fL Immature Gran % (Auto) 0.1 % Neutrophils % 73.0 % Lymphocytes % 18.7 % Monocytes % 6.3 % Eosinophils % 1.3 % Basophils % 0.6 % Immature Gran # 0.01 (0.00-0.04) 10*3/uL Neutrophils # 5.20 (1.80-7.70) 10*3/uL Lymphocytes # 1.33 (0.90-5.00) 10*3/uL Monocytes # 0.45 (0.20-1.00) 10*3/uL Eosinophils # 0.09 (0.04-0.35) 10*3/uL Basophils # 0.04 (0.00-0.10) 10*3/uL Sodium 140 (137-145) mmol/L Potassium 3.9 (3.5-5.1) mmol/L Chloride 107 (98-107) mmol/L Carbon Dioxide 28 (22-30) mmol/L Anion Gap 5 mmol/L BUN 12 (7-17) mg/dL Creatinine 0.77 (0.52-1.04) mg/dL Est GFR (CKD-EPI)AfAm >90 (>60 ml/min/1.73 sqM) Est GFR (CKD-EPI)NonAf 81 (>60 ml/min/1.73 sqM) Glucose 110 H (74-99) mg/dL Calcium 9.1 (8.4-10.2) mg/dL Total Bilirubin 0.4 (0.2-1.3) mg/dL AST 18 (14-36) U/L ALT 16 (4-34) U/L Alkaline Phosphatase 94 (38-126) U/L Total Protein 6.3 (6.3-8.2) g/dL Albumin 3.6 (3.5-5.0) g/dL Urine Color Yellow Urine Appearance Cloudy H (Clear) Urine pH 5.5 (5.0-8.0) Ur Specific [place] 1.028 (1.001-1.035) Urine Protein Negative (Negative) Urine Glucose (UA) Negative (Negative) Urine Ketones Negative (Negative) Urine Blood Negative (Negative) Urine Nitrite Negative (Negative) Urine Bilirubin Negative (Negative) Urine Urobilinogen 2.0 (<2.0) mg/dL Ur Leukocyte Esterase Negative (Negative) Urine RBC 6 H (0-5) /hpf Urine WBC 5 (0-5) /hpf Ur Squamous Epith Cells 7 H (0-4) /hpf Calcium Oxalate Crystal Many H (None) /hpf Urine Bacteria Moderate H (None) /hpf Urine Mucus Moderate H (None) /hpf Urine Opiates Screen Not Detected (NotDetected) Ur Oxycodone Screen Not Detected (NotDetected) Urine Methadone Screen Not Detected (NotDetected) Ur Barbiturates Screen Not Detected (NotDetected) U Tricyclic Antidepress Not Detected (NotDetected) Ur Phencyclidine Scrn Not Detected (NotDetected) Ur Amphetamines Screen Not Detected (NotDetected) U Methamphetamines Scrn Not Detected (NotDetected) U Benzodiazepines Scrn Detected H (NotDetected) Urine Cocaine Screen Not Detected (NotDetected) U Marijuana (THC) Screen Not Detected (NotDetected) Disposition Clinical Impression: Depression, Suicidal ideation, Anxiety Disposition: TRANSFER TO PSYCH HOSP/UNIT Referrals: Unruly Madrid DO [Primary Care Provider] - 1-2 days Time of Disposition: 16:00
[2024-12-01] MEDS: clonazePAM 0.5 MG TAB PO STA (15:22)
[2024-12-01] MEDS ORDERED: ACETAMINOPHEN TAB 325 MG TAB PO PRN (19:06)
[2024-12-01] MEDS ORDERED: IBUPROFEN 600 MG TAB PO PRN (19:06)
[2024-12-01] MEDS ORDERED: MAG HYDROX/AL HYDROX/SIMETH 355 ML BOTTLE PO PRN (19:06)
[2024-12-01] MEDS ORDERED: VITAMIN B12 PO SCH (21:00)
[2024-12-01] MEDS ORDERED: VITAMIN C PO SCH (21:00)
[2024-12-01] MEDS ORDERED: NON FORMULARY DRUG (Vitamin D3(Unknown Dose) 1 TAB) PO SCH (21:00)
[2024-12-01] MEDS: clonazePAM 0.5 MG TAB PO SCH (21:11)
[2024-12-01] MEDS: MAGNESIUM OXIDE 400 MG TAB PO SCH (21:12)
[2024-12-01] MEDS: NON FORMULARY DRUG (Progesterone, Micronized [Progesterone] 100 MG Capsule) PO SCH (21:12)
[2024-12-01] MEDS: ARIPiprazole 2 MG TAB PO SCH (21:12)
[2024-12-02] MEDS: LEVOTHYROXINE 50 MCG TAB PO SCH (06:32)
[2024-12-02] MEDS: ASPIRIN 81 MG PO SCH (08:51)
[2024-12-02] MEDS: NICOTINE 14MG/24HR PATCH TRANSDERM SCH (08:52)
[2024-12-02] MEDS: ASCORBIC ACID 500 MG TAB PO SCH (12:47)
[2024-12-02] MEDS: CHOLECALCIFEROL 25 MCG (1000 IU) TABLET PO SCH (12:47)
[2024-12-02] MEDS: CYANOCOBALAMIN 500 MCG TAB PO SCH (12:49)
--- NOTE | 2024-12-02 12:56 | P.HP ---
Psychiatric H&P - . H&P Date: 12/02/24 History & Physical: Allergies Allergy/AdvReac Type Severity Reaction Status Date / Time latex Allergy Severe Anaphylaxis Verified 12/01/24 16:27 levofloxacin from Levaquin Allergy Unknown Verified 12/01/24 16:27 Penicillins AdvReac Severe Rash/Hives/Shortness Verified 12/01/24 16:41 of Breath buspirone from BuSpar AdvReac dizziness/n Verified 12/01/24 16:27 ausea escitalopram from Lexapro AdvReac heart Verified 12/01/24 16:27 racing prednisone AdvReac MAKES HER Verified 12/01/24 16:27 FEEL LIGHTHEADED vilazodone from Viibryd AdvReac lowered BP Verified 12/01/24 16:27 Vital Signs Temp 98.2 F 12/02/24 09:47 Pulse 86 12/02/24 09:47 Resp 18 12/02/24 09:47 BP 109/76 12/02/24 09:47 Pulse Ox 98 12/02/24 09:47 FiO2 Intake & Output 12/01/24 12/02/24 12/02/24 18:59 06:59 18:59 Weight 90.718 kg 89.5 kg Laboratory Last Values WBC 7.12 10*3/uL (4.50-10.00) 12/01/24 14: RBC 4.51 10*6/uL (4.10-5.20) 12/01/24 14:25 Hgb 15.1 g/dL (12.0-15.0) H 12/01/24 14:25 Hct 45.4 % (37.2-46.3) 12/01/24 14:25 MCV 100.7 fL (80.0-97.0) H 12/01/24 14:25 MCH 33.5 pg (27.0-32.0) H 12/01/24 14: MCHC 33.3 g/dL (32.0-37.0) 12/01/24 14: Plt Count 329 10*3/uL (140-440) 12/01/24 14:25 MPV 10.5 fL (9.5-12.2) 12/01/24 14:25 Immature Gran % (Auto) 0.1 % 12/01/24 14:25 Neutrophils % 73.0 % 12/01/24 14:25 Lymphocytes % 18.7 % 12/01/24 14:25 Monocytes % 6.3 % 12/01/24 14:25 Eosinophils % 1.3 % 12/01/24 14:25 Basophils % 0.6 % 12/01/24 14:25 Immature Gran # 0.01 10*3/uL (0.00-0.04) 12/01/24 14:25 Neutrophils # 5.20 10*3/uL (1.80-7.70) 12/01/24 14:25 Lymphocytes # 1.33 10*3/uL (0.90-5.00) 12/01/24 14: Monocytes # 0.45 10*3/uL (0.20-1.00) 12/01/24: Eosinophils # 0.09 10*3/uL (0.04-0.35) 12/01/24 14: Basophils # 0.04 10*3/uL (0.00-0.10) 12/01/24 14:25 Sodium 140 mmol/L (137-145) 12/01/24 14:25 Potassium 3.9 mmol/L (3.5-5.1) 12/01/24 14:25 Chloride 107 mmol/L (98-107) 12/01/24 14:25 Carbon Dioxide 28 mmol/L (22-30) 12/01/24 14:25 Anion Gap 5 mmol/L 12/01/24 14:25 BUN 12 mg/dL (7-17) 12/01/24 14:25 Creatinine 0.77 mg/dL (0.52-1.04) 12/01/24 14:25 Est GFR (CKD-EPI)AfAm >90 (>60 ml/min/1.73 sqM) 12/01/24 14:25 Est GFR (CKD-EPI)NonAf 81 (>60 ml/min/1.73 sqM) 12/01/24 14:25 Glucose 110 mg/dL (74-99) H 12/01/24 14:25 Calcium 9.1 mg/dL (8.4-10.2) 12/01/24 14:25 Total Bilirubin 0.4 mg/dL (0.2-1.3) 12/01/24 14:25 AST 18 U/L (14-36) 12/01/24 14:25 ALT 16 U/L (4-34) 12/01/24 14:25 Alkaline Phosphatase 94 U/L (38-126) 12/01/24 14:25 Total Protein 6.3 g/dL (6.3-8.2) 12/01/24 14:25 Albumin 3.6 g/dL (3.5-5.0) 12/01/24 14:25 TSH 2.960 mIU/L (0.465-4.680) 12/02/24 09:01 Urine Color Yellow 12/01/24 12:57 Urine Appearance Cloudy (Clear) H 12/01/24 12:57 Urine pH 5.5 (5.0-8.0) 12/01/24 12:57 Ur Specific Cascade 1.028 (1.001-1.035) 12/01/24 12:57 Urine Protein Negative (Negative) 12/01/24 12:57 Urine Glucose (UA) Negative (Negative) 12/01/24 12:57 Urine Ketones Negative (Negative) 12/01/24 12:57 Urine Blood Negative (Negative) 12/01/24 12:57 Urine Nitrite Negative (Negative) 12/01/24 12:57 Urine Bilirubin Negative (Negative) 12/01/24 12:57 Urine Urobilinogen 2.0 mg/dL (<2.0) 12/01/24 12:57 Ur Leukocyte Esterase Negative (Negative) 12/01/24 12:57 Urine RBC 6 /hpf (0-5) H 12/01/24 12:57 Urine WBC 5 /hpf (0-5) 12/01/24 12:57 Ur Squamous Epith Cells 7 /hpf (0-4) H 12/01/24 12:57 Calcium Oxalate Crystal Many /hpf (None) H 12/01/24 12:57 Urine Bacteria Moderate /hpf (None) H 12/01/24 12:57 Urine Mucus Moderate /hpf (None) H 12/01/24 12:57 Urine Opiates Screen Not Detected (NotDetected) 12/01/24 12:57 Ur Oxycodone Screen Not Detected (NotDetected) 12/01/24 12:57 Urine Methadone Screen Not Detected (NotDetected) 12/01/24 12:57 Ur Barbiturates Screen Not Detected (NotDetected) 12/01/24 12:57 U Tricyclic Antidepress Not Detected (NotDetected) 12/01/24 12:57 Ur Phencyclidine Scrn Not Detected (NotDetected) 12/01/24 12:57 Ur Amphetamines Screen Not Detected (NotDetected) 12/01/24 12:57 U Methamphetamines Scrn Not Detected (NotDetected) 12/01/24 12:57 U Benzodiazepines Scrn Detected (NotDetected) H 12/01/24 12:57 Urine Cocaine Screen Not Detected (NotDetected) 12/01/24 12:57 U Marijuana (THC) Screen Not Detected (NotDetected) 12/01/24 12:57 SARS-CoV-2 (PCR) Not Detected (Not Detectd) 12/01/24 17:33 12/02/24 12:43 IDENTIFYING DATA: Patient is a 64-year-old female, unemployed, living with CHIEF COMPLAINT: SI HPI: Patient presented to the hospital with depression, anxiety, suicidal ideations. Per EPS, "Cl lying in bed A/O x4 brought in by due to increased depression/anxiety w SI w increased thoughts of a plan over the last 14 days. Cl and report a 3 yr hx of these symptoms and feelings with various medication treatments and only temporary relief or feeling worse. Cl is tearful, fearful, anxious, and upset. " I feel like I am just exisiting, and thats all I do. I have to force myself to enjoy things, even time with family. I am scared and tired of feeling this way. I don't want to be here, but I don't want to ." also states " we have been 18 yrs, the first 15 have been wonderful, these last few have been hell. We don't know what to do anymore and I don't want her to feel the way she does." Cl presents w low motivation, low energy,hypersomnia, frustration, feeling isolated, crying spells, fatigue, loss of interest, and hopeless. Cl reports increased thoughts if using a knife to harm themselves. " I try to not think about it and it will go away for awhile, but when it comes back its more intense and difficult to stop." Cl reports speaking with PCP about this as well and being sent for testing through [facility] to rule out any organic issues. Cl also reports recently starting hormone replacement from their OBGYN. Cl is retired, works and is currently laid off. Cl and express concerns related to safety at home and feel further evaluation will help. Judgement/insight/impulse control: fair ADLS: fair Sleep/Garcia: poor/good Medical issues: Thyroid = Levothryroxine in place. Menopause: Progestrin in place. Medi cations: Abilify 2 mg daily Klonopin .5mg 4x's a day. Cl reports they have been taking Klonopin for 32 yrs. Hx of MH tx: currently open w [facility]. Seeing [facility] for med mgmt weekly. Hx of in pat: 3x's Last: [facility] 12/2022. Hx of COLBY: none reported. BAT: 0.0/UDS: pos benzo's. Hx of in pat rehab: none Fam hx: Maternal: " nervous break down." and depression, now . Hx of ECT reported for mother. Hx of trauma: none reported. Hx of legal: none reported. Denies HI/CIARA/DEL. " Patient seen and evaluated on the unit and was agreeable with speaking to quality analyst/technical writer in office. She states I have had anxiety for over 30 years, thats why Im on the Klonopin, but the last 3 years, my depression has gotten so bad. I cant live like this anymore. My family all says how I look good but Rosey been masking it for so long. Rosey tried every medication and nothing seems to work for me. I feel like Im just existing. I want to feel happy and normal again. I have been fighting coming to the hospital for a week and finally just told my to bring me in because I just feel like I dont know what else to do]. Patient denies any suicidal or homicidal ideations intent or plan, but voices passive suicidal statements. At this time patient denies any auditory or visual hallucinations. Patient denies any flight of ideas, racing thoughts and increased in goal directed behavior. Patient reports that a possible triggering event was losing her job 3 years ago and the isolation during COVID. She also reports other stressors are the of her mother 1 year ago at 87 years old and her 's recent layoff in June resulting in recent financial stress. Patient rates depression 5/10 and anxiety 7/10 stating I just feel stuck and like Im just going through the motions. Patient reports low mood, difficulty sleeping due to vivid dreams, anhedonia, worthlessness, hopelessness, lack of energy, trouble concentrating, and psychomotor slowing for the past 3 years. Patient denies any manic symptoms or history of manic behavior. Patient reports feeling tearful, feeling numb, and has racing thoughts but finds her coping skills of breathing exercises and mindfulness practices to be helpful. Patient also reports 1 week ago her OBGYN started her on HRT due to low hormone levels. Patient admits to using nicotine and smokes 1PPD but denies any other substance use. Psychoeducation provided on the long-term negative effects of benzodiazepine use including dependence, tolerance, falls and cognitive impairment. Patient was encouraged to speak to her outpatient psychiatrist regarding tapering this off as there is no clear benefit with continuing on with this medication if not effective. Given patient's treatment resistance with trialing several psychotropic medications, other interventions including ECT and esketamine were discussed and recommended. PAST PSYCHIATRIC HISTORY: Patient has a history of somatic symptom disorder, MDD, LIAM, benzodiazepine dependence. Patient is currently on Abilify 2 mg at bedtime, Klonopin 0.5 mg 4 times daily, last filled on 10/08 with a quantity of 120 for 30 days. She has tried several psychotropic medications in the past including Pamelor, Lexapro, Prozac, Trintellix, Remeron, Seroquel, Effexor, Zoloft. Patient reports patient reports 3 previous psychiatric hospitalizations and was last here in December of 2022. Patient sees Dr. Christensen at [facility] weekly and attends counseling weekly at [facility]. Patient denies any history of suicide attempts in the past. PMH: as per ER note ALLERGIES: as per EMR SUBSTANCE USE HISTORY: As per HPI FAMILY PSYCHIATRIC/SUBSTANCE USE HISTORY: Patient states her mother has depression and was on ECT in the past, sister has ADHD SOCIAL HISTORY: Patient [place] [address] [place] [address] [place] with her of 18 years. She has 3 grown children and a total of 14 grandkids. She reports being very close to her supportive family. 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 She denies any legal issues or history of trauma/abuse. MENTAL STATUS EXAM: General Appearance: Patient appears to be stated age is alert, directable, and attempts to cooperate. Patient appears to have poor hygiene and grooming. Behavior: Patient is seated without any agitated behavior. She is intermittently tearful Speech: Patient's speech is fluent and nonpressured. Mood/Affect: Patient reports their mood is depressed, affect is congruent and constricted. Suicidality/Homicidality: Patient denies having any homicidal ideation intent or plan. Denies any suicidal ideations intent or plan Perceptions: Patient denies any visual hallucinations and denies any auditory hallucinations Though content/process: There is no evidence of any delusional thought content and thought process is linear and goal-directed. Memory and concentration: AOX3, grossly intact for the purposes of this session. Can spell "WORLD" backwards Judgment and insight: Good STRENGTHS/WEAKNESSES: strength is that patient is resilient and has a strong support network. Weakness is that patient has poor judgment and is impulsive INTELLECT: Average IMPRESSIONS: Major depressive disorder, recurrent, moderate Rule out depression due to another medical condition (low hormonal levels) Generalized anxiety disorder Nicotine dependence Benzodiazepine dependence PLAN: -Patient is admitted under voluntary status to [facility] for stabilization of psychiatric symptoms and safety. Patient has signed adult voluntary form and and is placed in patient's chart. -Medications : Continue Abilify 2 mg at bedtime as an adjunct, Klonopin 0.5 mg 4 times daily for anxiety (discussed with patient the risks with being on this medication for long-term and was encouraged to speak to her outpatient psychiatrist/PCP about tapering this down especially since it is ineffective for anxiety), start Elavil 10 mg at bedtime for depression/anxiety -Patient was counselled on substance abuse and desired to cut back on use -Patient was informed of the risks, benefits and side effects of the medication and patient verbally consented to taking the medications. Patient signed med consent form and was placed in chart. Patient offered and declined patient education sheet for psychotropic medications. -Internal Medicine consult to perform medical evaluation and physical. -NRT -nicotine patch -SW on board for discharge planning. Encourage patient to participate in groups to work on coping skills.
[2024-12-02 16:26] LABS: Chol/HDL Ratio 5.23 Ratio; LDL Cholesterol,Calculated 137.1 mg/dL (0.0-131.0)
[2024-12-02] MEDS: AMITRIPTYLINE HCL 10 MG TAB PO SCH (19:59)
--- NOTE | 2024-12-03 07:42 | P.MDCNMH ---
History of Present Illness H&P Date: 12/02/24 64-year-old female no significant past medical history Patient presented for mental health evaluation due to depression and suicidal ideation The patient currently denies any medical concerns , denies any fever, chills, cough, sore throat, chest pain , trouble breathing , nausea , vomiting, abd pain , changes in urinary or bowel habits. Patient admits to tobacco smoking and denies illicit drugs or alcohol review of systems Pertinent positives as noted in HPI. All other systems were reviewed and are negative on exam Constitutional: No acute distress Eyes: Anicteric sclerae, moist conjunctiva, Pupils equal round reactive to light Lungs: Clear to auscultation Clear to percussion Normal respiratory effort, no accessory muscle use Cardiovascular: Heart regular in rate and rhythm, No murmurs, gallops, or rubs No peripheral edema Abdominal: Soft Nontender, no guarding, rebound or rigidity Abdomen moving with respiration Normoactive bowel sounds Extremities: No clubbing Pedal pulses intact and symmetrical Radial pulses intact and symmetrical No calf tenderness Psychiatric: Alert and oriented to person, place and time Neuro Muscles Strength 5/5 in all 4 extremities Sensation to light touch grossly present throughout Past Medical History Past Medical History: Blood Disorder, Thyroid Disorder Additional Past Medical History / Comment(s): 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 History of Any Multi-Drug Resistant Organisms: None Reported Past Surgical History: Breast Surgery, Cholecystectomy, Hysterectomy Additional Past Surgical History / Comment(s): KIDNEY URETERS RE-ROUTING D/T FREQUENT UTIS YRS AGO. LUMPECTOMIES OF BREAST-BENIGN, sinus surgery Past Anesthesia/Blood Transfusion Reactions: No Reported Reaction Additional Past Anesthesia/Blood Transfusion Reaction / Comment(s): NEVER RECIEVED BLOOD PRODUCT. Smoking Status: Current every day smoker - Past Family History Father Family Medical History: No Reported History Additional Family Medical History / Comment(s): FATHER IS LIVING AND IN HIS 70'S Mother Family Medical History: Cancer Additional Family Medical History / Comment(s): HX OF OVARIAN CA. Brother(s) Family Medical History: Cancer Additional Family Medical History / Comment(s): ESOPHAGUS CANCER Medications and Allergies Home Medications Medication Instructions Recorded Confirmed Type Levothyroxine Sodium [Synthroid] 50 mcg PO DAILY 06/14/22 12/01/24 History Aspirin EC [Ecotrin Low Dose] 81 mg PO DAILY 12/26/22 12/01/24 History ARIPiprazole [Abilify] 2 mg PO HS 12/01/24 12/01/24 History Biest(Estriol 80%-Estradiol 1 ml TOPICAL DAILY 12/01/24 12/01/24 History 20%)/Testosterone Cream Magnesium 250 mg PO HS 12/01/24 12/01/24 History Progesterone, Micronized 100 mg PO HS 12/01/24 12/01/24 History [Progesterone] Vitamin B-12(Unknown Dose) 1 tab PO HS 12/01/24 12/01/24 History Vitamin C(Unknown Dose) 1 tab PO HS 12/01/24 12/01/24 History Vitamin D3(Unknown Dose) 1 tab PO HS 12/01/24 12/01/24 History clonazePAM [KlonoPIN] 0.5 mg PO QID 12/01/24 12/01/24 History Allergies Allergy/AdvReac Type Severity Reaction Status Date / Time latex Allergy Severe Anaphylaxis Verified 12/01/24 16:27 levofloxacin [From Levaquin] Allergy Unknown Verified 12/01/24 16:27 Penicillins AdvReac Severe Rash/Hives/Shortness Verified 12/01/24 16:41 of Breath buspirone [From BuSpar] AdvReac dizziness/n Verified 12/01/24 16:27 ausea escitalopram [From Lexapro] AdvReac heart Verified 12/01/24 16:27 racing prednisone AdvReac MAKES HER Verified 12/01/24 16:27 FEEL LIGHTHEADED vilazodone [From Viibryd] AdvReac lowered BP Verified 12/01/24 16:27 Physical Exam Vitals: Vital Signs Temp Pulse Resp BP Pulse Ox 12/02/24 21:00 97.7 F 68 16 132/83 98 12/02/24 09:47 98.2 F 86 18 109/76 98 Cranial Nerve Examination - Cranial Nerves Cranial Nerve II- Optic: Intact Cranial Nerve III- Oculomotor: Intact Cranial Nerve IV- Trochlear: Intact Cranial Nerve V- Trigeminal: Intact Cranial Nerve - Abducens: Intact Cranial Nerve VII- Facial: Intact Cranial Nerve VIII- Auditory: Intact Cranial Nerve IX- Glossopharyngeal: Intact Cranial Nerve X- Vagus: Intact Cranial Nerve XI- Accessory: Intact Cranial Nerve XII- Hypoglossal: Intact Results CBC & Chem 7: 12/01/24 14:25 12/01/24 14:25 Labs: Abnormal Lab Results - Last 24 Hours (Table) 12/02/24 Range/Units 09:01 Triglycerides 196.00 H (0.00-149.00) mg/dL Cholesterol 218.00 H (0.00-200.00) mg/dL LDL Cholesterol, Calc 137.1 H (0.0-131.0) mg/dL Assessment and Plan Assessment: Depression and suicidal ideation Management per psych Hyperlipidemia LDL 136 Discussed lifestyle modification Start patient on low-dose statin, atorvastatin 10 mg p.o. daily Recheck liver enzymes in 2 to 3 weeks Follow-up liver panel in 3 months Thank you for this consultation
--- NOTE | 2024-12-03 12:20 | P.PN ---
Progress Note - Text Progress Note Date: 12/03/24 Interval History: Patient was seen in group and was directable and agreeable to speak with service writer advisor in the office. She reports feeling as though her mood symptoms worsened when she began taking her hormone replacement therapy a little over a week ago. She states she wishes to hold her HRT medications to see if this also helps improve her mood. She states sleep was poor last night due to her roommate snoring. She continues to express high anxiety, no lessening. She is unable to tolerate increases in Abilify due to it impacting her gait. She reports several somatic symptoms including feeling lightheadedness for a while, fuzziness recently, states she has been following up with her PCP for some of these concerns. She states having an MRI which was negative, was referred to an ENT doctor which was negative. She reports passive suicidal ideations, intermittent. At this time patient denies any homicidal ideations, intent or plan. Patient denies any auditory, visual hallucinations and denies any paranoia or delusions. Patient denies any side effects from the medications and has been compliant with meds. Mental Status Exam: General Appearance: Patient appears to be stated age is alert, directable, and cooperative. Behavior: Patient is calmly seated without any agitated behavior. Speech: Patient's speech is fluent and nonpressured. Mood/Affect: Mood is improving mildly, affect is congruent and reactive. Suicidality/Homicidality: Patient denies having any homicidal ideation intent or plan. Patient reports suicidal ideations Perceptions: Patient denies any visual hallucinations and denies any auditory hallucinations Though content/process: There is no evidence of any delusional thought content and thought process is linear and goal-directed. Memory and concentration: AOX3, grossly intact for the purposes of this session Judgment and insight: Improving mildly Assessment Major depressive disorder, recurrent, moderate Generalized anxiety disorder Benzodiazepine dependence Somatic symptom disorder Nicotine dependence Plan: -Patient continues to meet criteria for inpatient psychiatric admission for symptom stabilization and safety. Patient has signed adult voluntary form and medication consent and was placed in patient's chart. -Medications: Increase Elavil to 20 mg at bedtime for depression/anxiety, continue Abilify 2 mg at bedtime as an adjunct, Klonopin 0.5 mg 4 times daily for anxiety (patient was reminded to speak to her outpatient provider regarding tapering this medication down given the risks with long-term use) -Labs: Lipid panel mildly elevated, medical started patient on Lipitor and encourage lifestyle modifications -NRT - nicotine patch -SW on board for discharge planning. Encouraged the patient to participate in milieu.
[2024-12-03] MEDS: AMITRIPTYLINE HCL 10 MG TAB PO SCH (21:24)
[2024-12-03] MEDS: ATORVASTATIN 10 MG TAB PO SCH (21:25)
[2024-12-04] MEDS: MAGNESIUM HYDROXIDE 2,400 MG/30 ML CUP PO PRN (09:48)
--- NOTE | 2024-12-04 10:31 | P.PN ---
Progress Note - Text Progress Note Date: 12/04/24 Interval History: Patient was seen resting in her room and was directable and agreeable to speak with technical writer and editor in the office. She reports better sleep last night due to no longer having a roommate but does state she still had vivid dreams that she could not remember upon waking. She continues to report depression symptoms not improving from yesterday, but does state that anxiety symptoms have improved slightly. She states Yesterday evening, I finally felt like I was able to relax a little bit . She continues to report somatic symptoms including feeling lightheadedness and fatigue. She also reports feeling bloated and states her last BM was 3 days ago. Patient encouraged to request a dose of milk of magnesia from the medication nurse. She continues to report passive suicidal ideation, with no plan or intent, at the same level as yesterday. At this time, patient denies any homicidal ideations, intent, or plan. She denies any auditory or visual hallucinations, paranoia, or delusions. Patient denies any side effects from the medications with which she has been compliant. Patient reports being in contact with her family throughout her stay and is looking forward to seeing her sister during tomorrows visitation. Mental Status Exam: General Appearance: Patient appears to be stated age is alert, directable, and cooperative. She is wearing glasses Behavior: Patient is calmly seated without any agitated behavior. Speech: Patient's speech is fluent and nonpressured. Mood/Affect: Mood is improving mildly, affect is congruent and constricted. Suicidality/Homicidality: Patient denies having any homicidal ideation intent or plan. Patient reports suicidal ideations, no plan or intent Perceptions: Patient denies any visual hallucinations and denies any auditory hallucinations Though content/process: There is no evidence of any delusional thought content and thought process is linear and goal-directed. Memory and concentration: AOX3, grossly intact for the purposes of this session Judgment and insight: Improving mildly Assessment Major depressive disorder, recurrent, moderate Generalized anxiety disorder Benzodiazepine dependence Somatic symptom disorder Nicotine dependence Plan: -Patient continues to meet criteria for inpatient psychiatric admission for symptom stabilization and safety. Patient has signed adult voluntary form and medication consent and was placed in patient's chart. -Medications: Increase Elavil to 25 mg at bedtime for depression/anxiety, cont inue Abilify 2 mg at bedtime as an adjunct, Klonopin 0.5 mg 4 times daily for anxiety (discussed with patient regarding speaking to her outpatient provider regarding tapering this medication down given the risks with long-term use) -Labs: Patient started on Lipitor for elevated lipid panel -NRT - nicotine patch -SW on board for discharge planning. Encouraged the patient to participate in milieu.
[2024-12-04] MEDS: AMITRIPTYLINE HCL 25 MG TAB PO SCH (21:24)
--- NOTE | 2024-12-05 10:42 | P.PN ---
Progress Note - Text Progress Note Date: 12/05/24 Interval History: Patient was seen wandering the hallways and was directable and agreeable to sp alia with advertising copy writer in the office. Speaking with patient her sister was present during the interview. Noted that her sleep is somewhat broken. She notes that her depression and anxiety are 6/10 with 10 being the worst. She notes that she is continuing to have passive thoughts of suicide. She notes that she lacks energy. She feels that her appetite is normal. She struggles with concentration. Overall she does not feel good. Patient denies any side effects from the medications and has been compliant with meds. Meeting: A meeting was done with the sister and patient present. It is noted that 2.5 years ago the patient lost her job during the COVID epidemic and was isolated. Her sister noted the difference after this. She notes that she has been going to [facility] where nurse practitioner has been taking care of her medication management and notes that every 3 weeks the medications have been changed. She notes that she only used to be on the Klonopin 3 times daily and has been on it for 32 years. Her sister notes that the patient also struggled last year with their mother . She notes the patient's does not help around the house but does give emotional support. Overall recently she notes that her sister had said "Lord please take me". His sister is awaiting a phone call from Dr. Wood if possible on Saturday. Mental Status Exam: General Appearance: Patient presented her stated age, groomed and appropriately dressed, obese and able to ambulate normally. Behavior: Patient presented somewhat slow in motion Speech: Patient's speech is fluent and nonpressured. Mood/Affect: Mood is improving mildly, affect is congruent and constricted. Suicidality/Homicidality: Patient denies having any homicidal thoughts but notes that she is having passive suicidal thoughts. Perceptions: Patient denies any visual hallucinations and denies any auditory hallucinations Though content/process: There is no evidence of any delusional thought content and thought process is linear and goal-directed. Memory and concentration: AOX3, grossly intact for the purposes of this session Judgment and insight: Improving mildly Assessment Major depressive disorder, recurrent, moderate Generalized anxiety disorder Benzodiazepine dependence Somatic symptom disorder Nicotine dependence Plan: -Patient continues to meet criteria for inpatient psychiatric admission for symptom stabilization and safety. Patient has signed adult voluntary form and medication consent and was placed in patient's chart. -Medications: Continue Elavil to 25 mg at bedtime for depression/anxiety, continue Abilify 2 mg at bedtime as an adjunct, Klonopin 0.5 mg 4 times daily for anxiety (discussed with patient regarding speaking to her outpatient provider regarding tapering this medication down given the risks with long-term use) -Labs: Patient started on Lipitor for elevated lipid panel -NRT - nicotine patch -SW on board for discharge planning. Encouraged the patient to participate in milieu.
--- NOTE | 2024-12-06 09:24 | P.PN ---
Progress Note - Text Progress Note Date: 12/06/24 Interval History: Patient was seen wandering the hallways and was directable and agreeable to sp alia with fiction and nonfiction writer prose in the office. The patient notes that she is feeling shaky today but overall "okay". She rates her depression and anxiety 5/10 with 10 being worst (previous both 6/10). She notes her sleep is still broken and that she generally wakes up from her dreams trying to figure out if it was real or not. She notes that she is still having passive suicidal thoughts. She notes low energy but good appetite. She notes that her concentration is fair. She enjoyed a meeting with her sister yesterday and did talk to her as well as her son. Overall she denies any side effects with the medications. Meeting: (12/05/2024) A meeting was done with the sister and patient present. It is noted that 2.5 years ago the patient lost her job during the COVID epidemic and was isolated. Her sister noted the difference after this. She notes that she has been going to peer [facility] where nurse practitioner has been taking care of her medication management and notes that every 3 weeks the medications have been changed. She notes that she only used to be on the Klonopin 3 times daily and has been on it for 32 years. Her sister notes that the patient also struggled last year with their mother . She notes the patient's does not help around the house but does give emotional support. Overall recently she notes that her sister had said "Lord please take me". His sister is awaiting a phone call from Dr. Wood if possible on Saturday. Mental Status Exam: General Appearance: The patient presented her appropriate age and was dressed appropriately. Behavior: Patient presented slightly nervous and restless and see but calm and cooperative. Speech: Patient's speech is fluent and nonpressured. Mood/Affect: Mood is improving mildly, affect is congruent and constricted. Suicidality/Homicidality: The patient notes that she is having passive suicidal thoughts but no plan or intent. She denies any homicidal thoughts. Perceptions: Patient denies any visual hallucinations and denies any auditory hallucinations Though content/process: There is no evidence of any delusional thought content and thought process is linear and goal-directed. Memory and concentration: AOX3, grossly intact for the purposes of this session Judgment and insight: Improving mildly Assessment Major depressive disorder, recurrent, moderate Generalized anxiety disorder Benzodiazepine dependence Somatic symptom disorder Nicotine dependence Plan: -Patient continues to meet criteria for inpatient psychiatric admission for symptom stabilization and safety. Patient has signed adult voluntary form and medication consent and was placed in patient's chart. -Medications: Continue Elavil to 25 mg at bedtime for depression/anxiety, continue Abilify 2 mg at bedtime as an adjunct, Klonopin 0.5 mg 4 times daily for anxiety (discussed with patient regarding speaking to her outpatient provider regarding tapering this medication down given the risks with long-term use) -Labs: Patient started on Lipitor for elevated lipid panel -NRT - nicotine patch -SW on board for discharge planning. Encouraged the patient to participate in milieu.
--- NOTE | 2024-12-07 11:20 | P.PN ---
Progress Note - Text Progress Note Date: 12/07/24 Interval History: Patient was seen wandering the hallways and was directable and agreeable to sp alia with typewriter mechanic in the office. She reports feeling roughly the same, still experiencing intermittent suicidal ideations, passive in nature. She did admit to sleeping better but describes feeling hopeless given her depressive symptoms. She states her sister visited over the weekend and that a family meeting happened between her sister and the attending psychiatrist over the weekend. She inquires about rehab given her benzodiazepine dependence however during team meeting it appears as though patient is looking for more outpatient rehab than inpatient. She states her last bowel movement was this morning. She is not taking her cholesterol medications as she has never had issues with her cholesterol before and will get the levels rechecked with her PCP upon discharge. At this time patient denies any homicidal ideations, intent or plan. Patient denies any auditory, visual hallucinations and denies any paranoia or delusions. Patient denies any side effects from the medications and has been compliant with meds. Mental Status Exam: General Appearance: Patient appears to be stated age is alert, directable, and cooperative. Behavior: Patient is calmly seated without any agitated behavior. Speech: Patient's speech is fluent and nonpressured. Mood/Affect: Mood is improving mildly, affect is congruent and blunted. Suicidality/Homicidality: Patient denies having any homicidal ideation intent or plan. Patient reports suicidal ideations no plan or intent Perceptions: Patient denies any visual hallucinations and denies any auditory hallucinations Though content/process: There is no evidence of any delusional thought content and thought process is linear and goal-directed. Memory and concentration: AOX3, grossly intact for the purposes of this session Judgment and insight: Improving mildly Assessment Major depressive disorder, recurrent, moderate Generalized anxiety disorder Benzodiazepine dependence Somatic symptom disorder Nicotine dependence Plan: -Patient continues to meet criteria for inpatient psychiatric admission for symptom stabilization and safety. Patient has signed adult voluntary form and medication consent and was placed in patient's chart. -Medications: Increase Elavil to 35 mg at bedtime for depression/anxiety, continue Abilify 2 mg at bedtime as an adjunct, Klonopin 0.5 mg 4 times daily for anxiety -Labs: Lipid panel was elevated however patient to get this rechecked at her PCP and will follow-up with further treatment recommendations -NRT - nicotine patch -CLARE on board for discharge planning. Encouraged the patient to participate in milieu. Anticipate discharge on Saturday, home with
[2024-12-07] MEDS: AMITRIPTYLINE HCL 10 MG TAB PO SCH (21:30)
--- NOTE | 2024-12-08 11:35 | P.PN ---
Progress Note - Text Progress Note Date: 12/08/24 Interval History: Patient was seen wandering the hallways and was directable and agreeable to sp alia with freelance copywriter in the office. Patient has been tending to her ADLs, active in groups however continues to report suicidal ideations, no plan or intent. 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 ECT and esketamine was brought up again given patient's treatment resistance and she is hopeful to start either modality upon discharge. She inquires about rehab however given the inpatient nature of it she prefers for her outpatient provider to titrate down her Klonopin. She states sleeping and eating okay. She rates both for depression and anxiety moderate today. She states either her sister or will be able to pick her up tomorrow. At this time patient denies any homicidal ideations, intent or plan. Patient denies any auditory, visual hallucinations and denies any paranoia or delusions. Patient denies any side effects from the medications and has been compliant with meds. Mental Status Exam: General Appearance: Patient appears to be stated age is alert, directable, and cooperative. Behavior: Patient is calmly seated without any agitated behavior. Speech: Patient's speech is fluent and nonpressured. Mood/Affect: Mood is improving mildly, affect is congruent and blunted. Suicidality/Homicidality: Patient denies having any homicidal ideation intent or plan. Patient reports suicidal ideations, no plan or intent Perceptions: Patient denies any visual hallucinations and denies any auditory hallucinations Though content/process: There is no evidence of any delusional thought content and thought process is linear and goal-directed. Memory and concentration: AOX3, grossly intact for the purposes of this session Judgment and insight: Improving mildly Assessment Major depressive disorder, recurrent, moderate Generalized anxiety disorder Benzodiazepine dependence Somatic symptom disorder Nicotine dependence Plan: -Patient continues to meet criteria for inpatient psychiatric admission for symptom stabilization and safety. Patient has signed adult voluntary form and medication consent and was placed in patient's chart. -Medications: Continue Elavil 35 mg at bedtime for depression/anxiety, Abilify 2 mg at bedtime as an adjunct, Klonopin 0.5 mg 4 times daily for anxiety (patient to speak to her outpatient provider regarding tapering this down given the long- term risks) -Labs: Reviewed -NRT - nicotine patch -SW on board for discharge planning. Encouraged the patient to participate in milieu. Anticipate discharge home with tomorrow
[2024-12-09 11:05] VITALS: BP 103/73; PULSE 100; RESP 18; TEMP 97.8
--- NOTE | 2024-12-09 12:59 | P.DS ---
Providers Date of admission: 12/01/24 18:25 Expected date of discharge: 12/09/24 Attending physician: Judy Wood MD Consults: 12/01/24 19:06 Consult Physician Routine Consulting Provider: Smitha Physician Consult Reason/Comments: H&P and medical Do you want consulting provider notified?: Yes Primary care physician: Unruly Madrid - Discharge Diagnosis(es) (1) Major depressive disorder Status: Acute Priority: High (2) Nicotine dependence Status: Acute Priority: Low (3) Somatic symptom disorder Status: Acute Priority: High (4) Benzodiazepine dependence Status: Chronic Priority: Medium (5) Generalized anxiety disorder Status: Acute Priority: Medium Hospital Course: Admission HPI: Admission note was completed by conventional mortgage underwriter "Patient presented to the hospital with depression, anxiety, suicidal ideations. Per EPS, "Cl lying in bed A/O x4 brought in by due to increased depression/anxiety w SI w increased thoughts of a plan over the last 14 days. Cl and report a 3 yr hx of these symptoms and feelings with various medication treatments and only temporary relief or feeling worse. Cl is tearful, fearful, anxious, and upset. " I feel like I am just exisiting, and thats all I do. I have to force myself to enjoy things, even time with family. I am scared and tired of feeling this way. I don't want to be here, but I don't want to ." also states " we have been 18 yrs, the first 15 have been wonderful, these last few have been hell. We don't know what to do anymore and I don't want her to feel the way she does." Cl presents w low motivation, low energy,hypersomnia, frustration, feeling isolated, crying spells, fatigue, loss of interest, and hopeless. Cl reports increased thoughts if using a knife to harm themselves. " I try to not think about it and it will go away for awhile, but when it comes back its more intense and difficult to stop." Cl reports speaking with PCP about this as well and being sent for testing through [facility] to rule out any organic issues. Cl also reports recently starting hormone replacement from their OBGYN. Cl is retired, works and is currently laid off. Cl and express concerns related to safety at home and feel further evaluation will help. Judgement/insight/impulse control: fair ADLS: fair Sleep/Garcia: poor/good Medical issues: Thyroid = Levothryroxine in place. Menopause: Progestrin in place. Medications: Abilify 2 mg daily Klonopin .5mg 4x's a day. Cl reports they have been taking Klonopin for 32 yrs. Hx of MH tx: currently open w [facility]. Seeing [facility] for med mgmt weekly. Hx of in pat: 3x's Last: [facility] 12/2022. Hx of COLBY: none reported. BAT: 0.0/UDS: pos benzo's. Hx of in pat rehab: none Fam hx: Maternal: " nervous break down." and depression, now . Hx of ECT reported for mother. Hx of trauma: none reported. Hx of legal: none reported. Denies HI/CIARA/DEL. " Patient seen and evaluated on the unit and was agreeable with speaking to conventional mortgage underwriter in office. She states I have had anxiety for over 30 years, thats why Im on the Klonopin, but the last 3 years, my depression has gotten so bad. I cant live like this anymore. My family all says how I look good but Rosey been masking it for so long. Rosey tried every medication and nothing seems to work for me. I feel like Im just existing. I want to feel happy and normal again. I have been fighting coming to the hospital for a week and finally just told my to bring me in because I just feel like I dont know what else to do]. Patient denies any suicidal or homicidal ideations intent or plan, but voices passive suicidal statements. At this time patient denies any auditory or visual hallucinations. Patient denies any flight of ideas, racing thoughts and increased in goal directed behavior. Patient reports that a possible triggering event was losing her job 3 years ago and the isolation during COV. She also reports other stressors are the of her mother 1 year ago at 87 years old and her 's recent layoff in June resulting in recent financial stress. Patient rates depression 5/10 and anxiety 7/10 stating I just feel stuck and like Im just going through the motions. Patient reports low mood, difficulty sleeping due to vivid dreams, anhedonia, worthlessness, hopelessness, lack of energy, trouble concentrating, and psychomotor slowing for the past 3 years. Patient denies any manic symptoms or history of manic behavior. Patient reports feeling tearful, feeling numb, and has racing thoughts but finds her coping skills of breathing exercises and mindfulness practices to be helpful. Patient also reports 1 week ago her OBGYN started her on HRT due to low hormone levels. Patient admits to using nicotine and smokes 1PPD but denies any other substance use. Psychoeducation provided on the long-term negative effects of benzodiazepine use including dependence, tolerance, falls and cognitive impairment. Patient was encouraged to speak to her outpatient psychiatrist regarding tapering this off as there is no clear benefit with continuing on with this medication if not effective. Given patient's treatment resistance with trialing several psychotropic medications, other interventions including ECT and esketamine were discussed and recommended." Hospital course: Upon admission to the unit patient was directable and agreeable to commence treatment and signed adult voluntary form.. Patient got along well with other patients on the unit and followed unit protocol. Patient was compliant with the medications and denied any side effects throughout hospital course. Patient was started on Elavil and this is increased to 35 mg at bedtime for depression/anxiety, continued on Abilify 2 mg at bedtime as an adjunct and Klonopin 0.5 mg 4 times daily for anxiety. Given the long-term risks of benzodiazepine use patient was strongly encouraged to speak to her outpatient provider regarding tapering this medication off as she has been on this medication for over 30 years and is not effective in addition to risks with elderly patients being on this medication. Given patient's treatment resistance and history of sensitivities to several psychotropic medications, other mo dalities including esketamine and ECT were discussed as likely better treatment options than medications at this time. Patient spoke of her stressors and engaged in therapy both group and individual. Patient was also seen by medical team for history and physical exam. Throughout the course of the hospitalization patient gradually improved with regards to mood, anxiety, sleep and [returned back to their baseline level of functioning. On the day of discharge patient denied any homicidal ideations intent or plan denied any auditory or visual hallucinations. She does report suicidal ideations, no plan or intent and not worsening. The patient denied any access to guns or weapons. Patient denied any paranoia and did not endorse any delusions. Patient does not have a significant history of substance abuse and was counseled on abstaining from all substances including alcohol and marijuana. Patient was also counseled on the medications and need for regular compliance and was encouraged to follow-up with their outpatient appointment for mental health and also for primary care. Prior to discharge a family meeting will be arranged by manager social services to answer any questions and ensure safety upon discharge including making sure that guns/weapons are either removed from the home or locked away. Patient to be discharged home with and will follow-up with [facility]. Mental status exam: General Appearance: Patient appears to be stated age is alert, pleasant, and cooperative. Patient is in no acute distress and has fair hygiene and grooming Behavior: Patient is calmly seated without any agitated behavior. Speech: Patient's speech is fluent and nonpressured. Mood/Affect: Patient reports their mood is "anxious", affect is congruent and anxious Suicidality/Homicidality: Patient denies having any homicidal ideation intent or plan. She reports suicidal ideations, no plan or intent Perceptions: Patient denies any auditory or visual hallucinations. Though content/process: There is no evidence of any delusional thought content and thought process is linear and goal-directed. Memory and concentration: AOX3, grossly intact for the purposes of this session. Can spell "WORLD" backwards correctly. Judgment and insight: Fair Impression: Major depressive disorder, recurrent, moderate Generalized anxiety disorder Benzodiazepine dependence Somatic symptom disorder Nicotine dependence Plan: -Continue with discharge today as patient has improved and stabilized psychiatrically and is not currently an imminent threat to themself and/or others. -Continue medications: Elavil 35 mg at bedtime, Abilify 2 mg at bedtime, Klonopin 0.5 mg 4 times daily -Patient was counseled on the need for medication compliance and appropriate follow-up at mental health and also primary care for medical issues. Patient verbalized understanding and agreed. -Social work to help coordinate patients discharge today. also to ensure safe home environment that guns/weapons are either removed from the home or locked away. Social work also to arrange for patients follow up appointments with [facility] for psychiatric care along with follow up with primary care provider. -Patient counseled on abstaining from recreational drugs and marijuana and alcohol. Was informed/educated on the adverse effects on their physical and mental health. Patient verbally agreed and understood. -Patient was instructed to return to the hospital or seek immediate medical care if their psychiatric or medical symptoms do worsen or reoccur. Abnormal Labs 12/01/24 12/01/24 12/01/24 12:57 14:25 14:25 Hgb 15.1 H MCV 100.7 H MCH 33.5 H Glucose 110 H Triglycerides Cholesterol LDL Cholesterol, Calc Urine Appearance Cloudy H Urine RBC 6 H Ur Squamous Epith Cells 7 H Calcium Oxalate Crystal Many H Urine Bacteria Moderate H Urine Mucus Moderate H U Benzodiazepines Scrn Detected H 12/02/24 09:01 Hgb MCV MCH Glucose Triglycerides 196.00 H Cholesterol 218.00 H LDL Cholesterol, Calc 137.1 H Urine Appearance Urine RBC Ur Squamous Epith Cells Calcium Oxalate Crystal Urine Bacteria Urine Mucus U Benzodiazepines Scrn Allergies Allergy/AdvReac Type Severity Reaction Status Date / Time latex Allergy Severe Anaphylaxis Verified 12/01/24 16:27 levofloxacin [From Levaquin] Allergy Unknown Verified 12/01/24 16:27 Penicillins AdvReac Severe Rash/Hives/Shortness Verified 12/01/24 16:41 of Breath buspirone [From BuSpar] AdvReac dizziness/n Verified 12/01/24 16:27 ausea escitalopram [From Lexapro] AdvReac heart Verified 12/01/24 16:27 racing prednisone AdvReac MAKES HER Verified 12/01/24 16:27 FEEL LIGHTHEADED vilazodone [From Viibryd] AdvReac lowered BP Verified 12/01/24 16:27 Vital Signs Temp 97.8 F 12/09/24 11:04 Pulse 100 12/09/24 11:04 Resp 18 12/09/24 11:04 BP 103/73 12/09/24 11:04 Pulse Ox 100 12/09/24 11:04 FiO2 Patient Condition at Discharge: Stable Plan - Discharge Summary Discharge Rx Participant: Yes New Discharge Prescriptions: New Amitriptyline HCl [Elavil] 25 mg PO HS 30 Days #30 tab Ascorbic Acid [Vitamin C] 1,000 mg PO DAILY tab Amitriptyline HCl [Elavil] 10 mg PO HS 30 Days #30 tab Nicotine 14Mg/24Hr Patch [Habitrol] 1 patch TRANSDERM DAILY patch Atorvastatin [Lipitor] 10 mg PO HS tab Cyanocobalamin [Vitamin B-12] 1,000 mcg PO DAILY tab Cholecalciferol [Vitamin D3 (25 Mcg = 1000 Iu)] 25 mcg PO DAILY tab Continue Levothyroxine Sodium [Synthroid] 50 mcg PO DAILY Vitamin C(Unknown Dose) 1 tab PO HS Biest(Estriol 80%-Estradiol 20%)/Testosterone Cream 1 ml TOPICAL DAILY clonazePAM [KlonoPIN] 0.5 mg PO QID ARIPiprazole [Abilify] 2 mg PO HS 30 Days #30 tab Aspirin EC [Ecotrin Low Dose] 81 mg PO DAILY Vitamin B-12(Unknown Dose) 1 tab PO HS Progesterone, Micronized [Progesterone] 100 mg PO HS Vitamin D3(Unknown Dose) 1 tab PO HS Magnesium 250 mg PO HS Discharge Medication List Levothyroxine Sodium [Synthroid] 50 mcg PO DAILY 06/14/22 [History] Aspirin EC [Ecotrin Low Dose] 81 mg PO DAILY 12/26/22 [History] Biest(Estriol 80%-Estradiol 20%)/Testosterone Cream 1 ml TOPICAL DAILY 12/01/24 [History] Magnesium 250 mg PO HS 12/01/24 [History] Progesterone, Micronized [Progesterone] 100 mg PO HS 12/01/24 [History] Vitamin B-12(Unknown Dose) 1 tab PO HS 12/01/24 [History] Vitamin C(Unknown Dose) 1 tab PO HS 12/01/24 [History] Vitamin D3(Unknown Dose) 1 tab PO HS 12/01/24 [History] clonazePAM [KlonoPIN] 0.5 mg PO QID 12/01/24 [History] ARIPiprazole [Abilify] 2 mg PO HS 30 Days #30 tab 12/09/24 [Rx] Amitriptyline HCl [Elavil] 10 mg PO HS 30 Days #30 tab 12/09/24 [Rx] Amitriptyline HCl [Elavil] 25 mg PO HS 30 Days #30 tab 12/09/24 [Rx] Ascorbic Acid [Vitamin C] 1,000 mg PO DAILY tab 12/09/24 [Rx] Atorvastatin [Lipitor] 10 mg PO HS tab 12/09/24 [Rx] Cholecalciferol [Vitamin D3 (25 Mcg = 1000 Iu)] 25 mcg PO DAILY tab 12/09/24 [Rx] Cyanocobalamin [Vitamin B-12] 1,000 mcg PO DAILY tab 12/09/24 [Rx] Nicotine 14Mg/24Hr Patch [Habitrol] 1 patch TRANSDERM DAILY patch 12/09/24 [Rx] Follow up Appointment(s)/Referral(s): Psychiatry, Willi [Other] - 1 Week (12/10 @ 14:15 ) Unruly Madrid DO [Primary Care Provider] - 1-2 days Patient Instructions/Handouts: Depression (DC), Generalized Anxiety Disorder (GEN) Activity/Diet/Wound Care/Special Instructions: Avoid the use of street drugs and alcohol. Take all medications as prescribed. When you are in need of refills on your medications, please contact your medical provider and/or outpatient psychiatrist/provider to have this done. Please go to your scheduled outpatient appointment for aftercare treatment. If symptoms return or become worse, call the crisis line at and/or go to the nearest emergency room for evaluation. National Suicide Hotline [address] [facility] confidentiality statement: "The information contained in this communication, including attachments, is confidential, may be privileged, and is intended only for the use of the named recipient(s). Unauthorized use, disclosure, forwarding or copying is strictly prohibited and may be unlawful. If you have received this communication in error, please notify me IMMEDIATELY at the phone number or pager listed above. Discharge Disposition: HOME SELF-CARE
== END 2024-12-09 11:59 | disposition home or self-care (01) | DRG 885 ==
LOC: EC 12:15 → 3MHU 18:25
PROVIDERS: ADMIT Psychiatry & Neurology Psychiatry; ATTEND Psychiatry & Neurology Psychiatry
DX: F33.1 Major depressive disorder, recurrent, moderate (principal); R45.851 Suicidal ideations; F13.20 Sedative, hypnotic or anxiolytic dependence, uncomplicated; E78.5 Hyperlipidemia, unspecified; F17.210 Nicotine dependence, cigarettes, uncomplicated; F41.1 Generalized anxiety disorder; F45.9 Somatoform disorder, unspecified; G47.10 Hypersomnia, unspecified; Z79.82 Long term (current) use of aspirin; Z79.890 Hormone replacement therapy; Z79.899 Other long term (current) drug therapy; Z87.440 Personal history of urinary (tract) infections; Z90.710 Acquired absence of both cervix and uterus; Z88.0 Allergy status to penicillin; Z88.1 Allergy status to other antibiotic agents; Z88.8 Allergy status to other drugs, medicaments and biological substances; Z88.6 Allergy status to analgesic agent; Z90.49 Acquired absence of other specified parts of digestive tract
CPT/HCPCS: 36415; 80053; 80061; 80306; 81001; 82075; 82607; 82652; 83036; 84443; 85025; 87635; 99285